=== PATIENT | female | born 1950 | race Caucasian/White ===

== ENCOUNTER 2019-02-01 15:04 | Inpatient (IN) | payer MEDICARE, BC ==
[~2019-02-01] VITALS: Ht 162.6 cm; Wt 45.0 kg
[2019-02-01] MEDS ORDERED: SOD CHLORIDE 0.9% 1,000 ML IV STA ×2 (15:46→17:28)
[2019-02-01] MEDS ORDERED: LACTATED RINGER'S 1,000 ML IV STA ×2 (15:46→17:28)
--- NOTE | 2019-02-01 16:11 | ERD ---
ER Documentation Chief Complaint Chief Complaint RAFAEL FROM HOME FOR SYNCOPAL EPISODE, WAS FOUND BY BY THEIR BED HPI 68-year-old woman brought in by EMS for syncopal episode at home, found her laying on the floor unconscious when he returned from work early this afternoon. Patient has a history of stage IV colon cancer (although denies metastasis) status post hemicolectomy and primary anastomosis and had her last round of chemotherapy about 1 month ago. states for the last couple of weeks patient has had decreased appetite and very little to eat or drink throughout the day. She has had no blood per rectum or melena, no fevers or chills, no complaints of chest pain or shortness of breath. ROS All systems reviewed and are negative except as per history of present illness. Medications Home Meds Reported Medications Gabapentin* (Gabapentin*) 400 Mg Capsule, 400 MG PO BID, #90 CAP 02/01/19 Folic Acid* (Folic Acid*) 1 Mg Tablet, 1 MG PO DAILY, TAB 02/01/19 Cholecalciferol (Vitamin D3) 5,000 Unit Tablet, 5000 UNIT PO DAILY, TAB 02/01/19 Ondansetron Hcl* (Zofran*) 4 Mg Tablet, 4 MG PO Q8H PRN for NAUSEA AND OR VOMITING, TAB 02/01/19 Hydrocortisone* (Cortef*) 20 Mg Tablet, 20 MG PO BID, #60 TAB 02/01/19 Lisinopril* (Lisinopril*) 5 Mg Tablet, 5 MG PO DAILY, #30 TAB 02/01/19 Allergies Allergies: Coded Allergies: No Known Allergy (Unverified , 02/01/19) PMhx/Soc Colon cancer, hypertension History of Surgery: Yes (COLON SURGERY) Anesthesia Reaction: No Hx Neurological Disorder: No Hx Respiratory Disorders: No Hx Cardiac Disorders: No Hx Psychiatric Problems: No Hx Miscellaneous Medical Probl: Yes (COLON CA) Hx Alcohol Use: No Hx Substance Use: No Hx Tobacco Use: No Smoking Status: Never smoker FmHx Family History: No diabetes Physical Exam Vitals Vital Signs Date Temp Pulse Resp B/P (MAP) Pulse Ox O2 O2 Flow FiO2 Time Delivery Rate 02/01/19 109 18 86/66 (73) 17:05 02/01/19 107 18 83/51 (62) 100 Room Air 16:50 02/01/19 55/14 (28) 16:18 6/17/19 108 18 74/53 (60) 100 15:36 02/01/19 96.7 56 18 87/62 (70) 100 15:18 Physical Exam GENERAL: Elderly, chronically debilitated appearing woman, emaciated, dehydrated, afebrile HEENT: Dry mucous membranes, pink conjunctiva, no cervical spine tenderness or step-off deformities, no goiter, no jaundice or icterus NEURO: Alert and oriented 3, moving all extremities, no focal deficits or facial asymmetry CARDIAC: Tachycardic and regular, no murmurs rubs or gallops LUNGS: Clear bilaterally no wheezing crackles or stridor ABDOMEN: Soft nontender, no guarding, no rigidity, no rebound, no psoas sign no obturator sign. SKIN: Warm and dry to touch, no abrasions, contusions, or hematomas, no lacerations, no ecchymosis, no target lesions, and without ulcers EXTREMITIES: No clubbing cyanosis or edema, calves are bilaterally symmetrical, no Homans sign, no popliteal cord sign. Distal pulses equal and bilateral PSYCH: Normal affect without agitation or irritability Result Diagram: 02/01/19 1617 02/01/19 1620 Results 24 hrs Laboratory Tests Test 02/01/19 16:17 02/01/19 16:20 White Blood Count 12.3 10^3/ul Red Blood Count 4.95 10^6/ul Hemoglobin 15.0 g/dl Hematocrit 43.5 % Mean Corpuscular Volume 87.9 fl Mean Corpuscular Hemoglobin 30.3 pg Mean Corpuscular Hemoglobin Concent 34.5 g/dl Red Cell Distribution Width 12.3 % Platelet Count 333 10^3/UL Mean Platelet Volume 9.4 fl Immature Granulocytes % 0.400 % Neutrophils % % Lymphocytes % % Monocytes % % Eosinophils % % Basophils % % Nucleated Red Blood Cells % 0.0 /100WBC Immature Granulocytes # 0.050 10^3/ul Neutrophils # 10^3/ul Lymphocytes # 10^3/ul Monocytes # 10^3/ul Eosinophils # 10^3/ul Basophils # 10^3/ul Nucleated Red Blood Cells # 10^3/ul Sodium Level 127 mmol/L Potassium Level 4.7 mmol/L Chloride Level 95 mmol/L Carbon Dioxide Level 17 mmol/L Anion Gap 15 Blood Urea Nitrogen 34 mg/dl Creatinine 2.06 mg/dl Est Glomerular Filtrat Rate mL/min 24 mL/min Glucose Level 119 mg/dl Calcium Level 10.7 mg/dl Total Bilirubin 0.9 mg/dl Direct Bilirubin 0.00 mg/dl Indirect Bilirubin 0.9 mg/dl Aspartate Amino Transf (AST/SGOT) 27 IU/L Alanine Aminotransferase (ALT/SGPT) 12 IU/L Alkaline Phosphatase 134 IU/L Troponin I < 0.012 ng/ml Total Protein 8.1 g/dl Albumin 4.1 g/dl Globulin 4.00 g/dl Albumin/Globulin Ratio 1.02 Lipase 48 U/L Current Medications Medications Dose Sig/Stefan Start Time Status Last (Trade) Ordered Route PRN Stop Time Admin Dose Reason Admin Sodium 1,000 ml @ Q1H STAT 02/01/19 DC 02/01/19 Chloride 1,000 mls/hr IV 15:46 16:22 02/01/19 16:45 Lactated 1,000 ml @ Q1H STAT 02/01/19 DC 02/01/19 Ringer's 1,000 mls/hr IV 15:46 16:22 02/01/19 16:45 Procedures/MDM IV line was established 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 Patient was afebrile EKG performed, read by me revealed a sinus tachycardia at 110 bpm, left axis deviation, narrow QRS complex, no concerning ST elevations or depressions noted I administered 2 L of IV crystalloid solution for dehydration X-ray Pelvis 1V Interpreted by me: Bones: No fracture Joints: No dislocation Foreign body: None chest X-ray 1V Interpreted by me: Soft Tissue: No acute abnormalities Bones: No acute abnormalities Mediastinum/Cardiac Silhouette/Lungs: Port-A-Cath in the right chest CBC is unremarkable, electrolytes revealed dehydration and acute kidney injury with a creatinine of 2.1, liver function tests unremarkable, troponin negative. Duran catheter was placed there is minimal urine output, UA is pending and I will follow-up, if positive patient will be treated with antibiotics. Patient will be admitted to telemetry setting for syncope. Departure Diagnosis: Primary Impression: Syncope Syncope type: unspecified Qualified Codes: R55 - Syncope and collapse Additional Impressions: Colon cancer Colon location: unspecified part of colon Qualified Codes: C18.9 - Malignant neoplasm of colon, unspecified Acute dehydration Acute kidney injury Failure to thrive Failure to thrive age range: in adult Qualified Codes: R62.7 - Adult failure to thrive Condition: RENA Cuba MD Feb 01, 2019 16:11
[2019-02-01] MEDS ORDERED: HYDR20TA PO (16:59)
[2019-02-01] MEDS ORDERED: LISI-313 PO (16:59)
[2019-02-01] MEDS ORDERED: CHOL500010 PO (17:00)
[2019-02-01] MEDS ORDERED: ONDA4TAB8 PO (17:00)
[2019-02-01] MEDS ORDERED: FOLI-49 PO (17:01)
[2019-02-01] MEDS ORDERED: GABA400C14 PO (17:01)
[2019-02-01] MEDS ORDERED: NACL 0.9% 3 ML SYG IV SCH (18:00)
[2019-02-01] MEDS ORDERED: morphine 2 MG INJ IV PRN (18:00)
[2019-02-01] MEDS ORDERED: HYDROCODONE/APAP (5/325) TAB PO PRN (18:00)
[2019-02-01] MEDS ORDERED: ONDANSETRON 4 MG INJ IV PRN (18:00)
[2019-02-01] MEDS ORDERED: FAMOTIDINE 20 MG INJ IV SCH (18:30)
[2019-02-01] MEDS ORDERED: PIPER-TAZO 2.25 GM (PMX) 50 ML IVPB SCH (18:30)
--- NOTE | 2019-02-01 18:38 | HP ---
Date/Time of Note Date/Time of Note DATE: 02/01/19 TIME: 18:37 Assessment/Plan VTE Prophylaxis Pharmacological prophylaxis: other Lines/Catheters IV Catheter Type (from Nrsg): Central Line Central line still needed: No Assessment/Plan Hospital Course HPI Patient is Pashto female the past medical history significant for hypertension and stage IV colon cancer status post colectomy last year who presents to [facility] for syncope. According to and patient at bedside has been returned from work to find patient passed out on a chair. Patient currently feels back to baseline however she does not remember the event except for that she wanted to use the bathroom and was walking to the bathroom and h owever felt very dizzy and subsequently passed out on the chair. Patient's splashed some water on her face and tried to wake her up and after multiple times he called emergency personnel. Currently patient feels at her baseline. According to patient and patient's , patient has not been eating or drinking very well as her chemotherapy gives her extreme nausea. Patient finished 10 rounds of chemotherapy, last chemotherapy was done approximately on January 14. Patient denies chest pain, shortness of breath, headache, dizziness, bowel or bladder dysfunction,. Patient does state that when I push hard in her stomach there is some mild pain. Objective Physical exam General: Patient is laying in bed and answers questions appropriately Mentation: Patient is alert and oriented 4, Head: Normocephalic atraumatic Eyes: EOMI, pupils reactive to light Neck: Supple, nontender, midline Respiratory: Clear to auscultation bilaterally Cardiovascular: regular rate, no obvious murmurs Gastrointestinal: Mild-tender to palpation, bowel sounds heard. Neurological: Moves all extremities spontaneously Skin: No new skin lesions Assessment and plan Syncope -Due to patient's history, this is highly likely secondary to volume depletion as patient has not been eating or drinking well for the past few weeks -Continue IV hydration -CT and MRI pending -Carotid ultrasound pending - echo pending Hypertension -Patient is alert and oriented x4, no change from baseline -Very likely secondary to patient's vomit depletion -Hold patient's blood pressure medications Severe sepsis -Possible intra-abdominal source as patient is complaining of new onset abdominal pain however this is very mild and only when I push and deep, -IV fluid -IV antibiotic, broad-spectrum given patient being on hydrocortisone chronically for unknown reason and patient receiving chemotherapy -Follow-up with cultures Intra-abdominal pain -Very mild, only with deep palpation -I suspect this is likely secondary to chronic issues however patient states that it is mildly worsening -CT of the abdomen pelvis pending -Continue broad-spectrum IV antibiotics as patient is immunocompromised -UA is still pending at this time, patient may also have a UTI, although does not complain of significant urinary issues Hyponatremia -This is very likely volume depletion, continue IV hydration Acute kidney injury versus chronic kidney disease -This is also very likely secondary to volume depletion, will monitor and reevaluate tomorrow a.m., if continues to be elevated will consult nephrology Chronic hydrocortisone use -Unknown reason, however will continue as patient is taking on a daily basis, twice daily, will need to inquire further from patient's family however patient's does not know exactly. Stage IV colon cancer -Patient is status post hemicolectomy with reanastomosis last year -Status post 10 rounds of chemotherapy, last chemotherapy done approximately 2 weeks ago -Persistent nausea is causing patient's decreased p.o. intake Decreased p.o. intake, failure to thrive -Likely secondary to above chemotherapy -Zofran as needed -We will try to encourage oral intake as well as high calorie snacks. Hypertension -Hold patient BP meds for now for hypotension. Disposition -Patient admitted, likely syncopal event secondary to volume depletion however will work-up given patient's immunocompromise status. Result Diagram: 02/01/19 1617 02/01/19 1620 Results 24hrs Laboratory Tests Test 02/01/19 16:17 02/01/19 16:20 White Blood Count 12.3 H Red Blood Count 4.95 Hemoglobin 15.0 Hematocrit 43.5 Mean Corpuscular Volume 87.9 Mean Corpuscular Hemoglobin 30.3 Mean Corpuscular Hemoglobin Concent 34.5 Red Cell Distribution Width 12.3 Platelet Count 333 Mean Platelet Volume 9.4 Immature Granulocytes % 0.400 Neutrophils % Segmented Neutrophils % (Manual) 45 Band Neutrophils % (Manual) 20 H Lymphocytes % Lymphocytes % (Manual) 19 Reactive Lymphocytes % (Manual) 4 H Monocytes % Monocytes % (Manual) 11 Eosinophils % Basophils % Metamyelocytes % (manual) 1 H Nucleated Red Blood Cells % 0.0 Immature Granulocytes # 0.050 H Neutrophils # Neutrophils # (Manual) 5.8 Band Neutrophils # 2.4 H Lymphocytes (Manual) 2.3 Lymphocytes # Reactive Lymphocytes # 0.4 H Monocytes # Monocytes # (Manual) 1.3 H Eosinophils # Basophils # Metamyelocytes # 0.1 H Nucleated Red Blood Cells # Platelet Estimate NORMAL Poikilocytosis 1+ Sodium Level 127 L Potassium Level 4.7 Chloride Level 95 L Carbon Dioxide Level 17 L Anion Gap 15 H Blood Urea Nitrogen 34 H Creatinine 2.06 H Est Glomerular Filtrat Rate mL/min 24 L Glucose Level 119 Calcium Level 10.7 H Total Bilirubin 0.9 Direct Bilirubin 0.00 Indirect Bilirubin 0.9 Aspartate Amino Transf (AST/SGOT) 27 Alanine Aminotransferase (ALT/SGPT) 12 L Alkaline Phosphatase 134 H Troponin I < 0.012 Total Protein 8.1 Albumin 4.1 Globulin 4.00 H Albumin/Globulin Ratio 1.02 Lipase 48 HPI/ROS Admit Date/Time Admit Date/Time PMH/Family/Social Past Medical History Medications Current Medications Sodium Chloride 1,000 ml @ 70 mls/hr [id number] IV ; Start 02/01/19 at 17:53 IV Flush (NS 3 ml) 3 ml PER PROTOCOL IV ; Start 02/01/19 at 18:00 Ondansetron HCl (Zofran Inj) 4 mg Q6H PRN IV NAUSEA/VOMITING; Start 02/01/19 at 18:00 Acetaminophen (Tylenol Tab) 650 mg Q6H PRN PO .PAIN 1-3 OR TEMP; Start 02/01/19 at 18:00 Acetaminophen/ Hydrocodone Bitart ([place] (5/325)) 1 tab Q6H PRN PO .PAIN 4-6; Start 02/01/19 at 18:00 Morphine Sulfate (morphine) 2 mg Q4H PRN IV .PAIN 7-10; Start 02/01/19 at 18:00 Famotidine (Pepcid Iv) 20 mg DAILY IV ; Start 02/01/19 at 18:30 Piperacillin Sod/ Tazobactam Sod 50 ml @ 100 mls/hr Q6 IVPB ; Start 02/01/19 at 18:30 Cholecalciferol (Vitamin D) 5,000 unit DAILY PO ; Start 02/02/19 at 09:00 Folic Acid (Folic Acid) 1 mg DAILY PO ; Start 02/02/19 at 09:00 Hydrocortisone (Cortef) 20 mg BID PO ; Start 02/01/19 at 21:00; Status UNV Coded Allergies: No Known Allergy (Unverified , 02/01/19) Social History Smoking Status: Never smoker Exam/Review of Systems Vital Signs Vitals Vital Signs Date Temp Pulse Resp B/P (MAP) Pulse Ox O2 O2 Flow FiO2 Time Delivery Rate 02/01/19 108 18 85/42 (56) 96 Room Air 18:06 02/01/19 97.0 17:54 RENA TELLO Feb 01, 2019 18:38
[2019-02-01] MEDS: SOD CHLORIDE 0.9% 1,000 ML IV SCH (19:54)
[2019-02-01 20:00] VITALS: BP 93/50; PULSE 109; RESP 20
[2019-02-01 20:06] VITALS: PULSE 110
[2019-02-01 21:00] VITALS: Ht 162.6 cm; Wt 45.0 kg
[2019-02-01] MEDS ORDERED: HYDROCORTISONE 20 MG TAB PO SCH (21:00)
[2019-02-01 22:00] VITALS: BP 103/57; PULSE 110; RESP 16
--- NOTE | 2019-02-01 23:47 | CONS ---
Assessment/Plan Assessment/Plan Hospital Course (Demo Recall) 1. Abdominal pain 2. Lactic acidosis 3. Leukocytosis with bandemia 4. CT findings of thickened proctoscopy: possible colitis versus perforation versus infectious -IV antibiotics -IV fluids -N.p.o. -Stat CT with rectal IV and oral contrast -Supportive measures -May require surgical exploration 5. Syncope of unknown etiology -Work-up per medical team 6. Sepsis probably secondary to above -As above 7. Kidney injury with renal insufficiency -Judicious fluid management -Minimize nephrotoxic agents if possible 8. Stage IV colon cancer status post resection and chemotherapy -Oncology follow-up Thank you very much for consulting me in this patient's care, Consultation Date/Type/Reason Admit Date/Time Date of Consultation: Feb 01, 2019 Type of Consult General surgical Reason for Consultation Abdominal pain CT with proctocolitis versus perforation versus ischemia Stage IV colon cancer status post resection and chemotherapy Requesting Provider: VIKY GUZMAN Date/Time of Note DATE: 02/01/19 TIME: 23:47 Hx of Present Illness Darien Bhat is a 68-year-old female who underwent open left colon resection due to stage IV colon cancer and is status post chemotherapy. Her surgery was May of last year at [facility]. came home today found her passed out with a syncopal episode. She came to it however but did not report nausea vomiting fevers chills chest pain or shortness of breath. No cough seizure visual or neurologic changes otherwise. No dysuria. Past few days she is been decreased oral intake and weaker. She also reports abdominal pain. Upon presentation she is found to be tachycardic and hypotensive initially. She continues to be tachycardic however hypotension is improved. She said loose bowel function. Blood work identifies mild leukocytosis with bandemia of 20. She has lactic acid of 5. She has renal insufficiency with electrolyte abnormalities. CT scan identifies thickened proctoscopy: Questionable perforation questionable ischemia. She is admitted to telemetry and surgical consult is obtained for further evaluation and treatment. 12 point review of system is negative unless otherwise addressed in chart Past Medical History Abdominal pain Lactic acidosis Leukocytosis with bandemia Syncope Hypertension history Hyponatremia Acute kidney injury versus chronic kidney disease Chronic hydrocortisone use Stage IV colon cancer Decreased p.o. intake, failure to thrive Home Meds Reported Medications Gabapentin* (Gabapentin*) 400 Mg Capsule, 400 MG PO BID, #90 CAP 02/01/19 Folic Acid* (Folic Acid*) 1 Mg Tablet, 1 MG PO DAILY, TAB 02/01/19 Cholecalciferol (Vitamin D3) 5,000 Unit Tablet, 5000 UNIT PO DAILY, TAB 02/01/19 Ondansetron Hcl* (Zofran*) 4 Mg Tablet, 4 MG PO Q8H PRN for NAUSEA AND OR VOMITING, TAB 02/01/19 Hydrocortisone* (Cortef*) 20 Mg Tablet, 20 MG PO BID, #60 TAB 02/01/19 Lisinopril* (Lisinopril*) 5 Mg Tablet, 5 MG PO DAILY, #30 TAB 02/01/19 Medications Current Medications Sodium Chloride 1,000 ml @ 70 mls/hr [id number] IV Last administered on 02/01/19at 19:54; Admin Dose 70 MLS/HR; Start 02/01/19 at 17:53 IV Flush (NS 3 ml) 3 ml PER PROTOCOL IV ; Start 02/01/19 at 18:00 Ondansetron HCl (Zofran Inj) 4 mg Q6H PRN IV NAUSEA/VOMITING; Start 02/01/19 at 18:00 Acetaminophen (Tylenol Tab) 650 mg Q6H PRN PO .PAIN 1-3 OR TEMP; Start 02/01/19 at 18:00 Acetaminophen/ Hydrocodone Bitart ([place] (5/325)) 1 tab Q6H PRN PO .PAIN 4-6; Start 02/01/19 at 18:00 Morphine Sulfate (morphine) 2 mg Q4H PRN IV .PAIN 7-10; Start 02/01/19 at 18:00 Piperacillin Sod/ Tazobactam Sod 50 ml @ 100 mls/hr Q6 IVPB Last administered on 02/01/19at 19:53; Admin Dose 100 MLS/HR; Start 02/01/19 at 18:30 Cholecalciferol (Vitamin D) 5,000 unit DAILY PO ; Start 02/02/19 at 09:00 Folic Acid (Folic Acid) 1 mg DAILY PO ; Start 02/02/19 at 09:00 Hydrocortisone (Cortef) 20 mg BID PO Last administered on 02/01/19at 21:33; Admin Dose 20 MG; Start 02/01/19 at 21:00 Pantoprazole (Protonix Tab) 40 mg DAILY@06 PO ; Start 02/02/19 at 06:00 Allergies: Coded Allergies: No Known Allergy (Unverified , 02/01/19) Past Surgical History Partial left colectomy May [address] [facility] Family History Significant Family History: no pertinent family hx Social History Alcohol Use: none Smoking Status: Never smoker Drug Use: none Exam/Review of Systems Exam Vitals Vital Signs Date Temp Pulse Resp B/P (MAP) Pulse Ox O2 O2 Flow FiO2 Time Delivery Rate 02/01/19 110 20:06 02/01/19 99.6 20 93/50 (64) 94 Room Air 20:00 Constitutional: oriented; No distress Psych: No nl mood/affect (Flat affect) Head: normocephalic, atraumatic Eyes: nl conjunctiva, EOMI, PERRL; No icteric ENMT: nl external ears & nose; No mucosa pink and moist Neck: non-tender; No jvd Respiratory: normal air movement; No congested cough, No labored breathing, No wheezing Cardiovascular: No regular rate and rhythm, No edema Gastrointestinal: rebound or guarding (Normal), tender Musculoskeletal: No nl gait and stance, No joint tenderness Extremities: normal pulses; No calf tenderness Neurological: No nl mental status (Flat affect) Skin: No rash or lesions, No diaphoresis Results Result Diagram: 02/01/19 1617 02/01/19 1620 Results 24hrs Laboratory Tests Test 02/01/19 16:17 02/01/19 16:20 02/01/19 18:09 02/01/19 18:52 White Blood Count 12.3 H Red Blood Count 4.95 Hemoglobin 15.0 Hematocrit 43.5 Mean Corpuscular 87.9 Volume Mean Corpuscular 30.3 Hemoglobin Mean Corpuscular 34.5 Hemoglobin Concent Red Cell 12.3 Distribution Width Platelet Count 333 Mean Platelet Volume 9.4 Immature 0.400 Granulocytes % Neutrophils % Segmented 45 Neutrophils % (Manual) Band Neutrophils % 20 H (Manual) Lymphocytes % Lymphocytes % 19 (Manual) Reactive Lymphocytes 4 H % (Manual) Monocytes % Monocytes % (Manual) 11 Eosinophils % Basophils % Metamyelocytes % 1 H (manual) Nucleated Red Blood 0.0 Cells % Immature 0.050 H Granulocytes # Neutrophils # Neutrophils # 5.8 (Manual) Band Neutrophils # 2.4 H Lymphocytes (Manual) 2.3 Lymphocytes # Reactive Lymphocytes 0.4 H # Monocytes # Monocytes # (Manual) 1.3 H Eosinophils # Basophils # Metamyelocytes # 0.1 H Nucleated Red Blood Cells # Platelet Estimate NORMAL Poikilocytosis 1+ Sodium Level 127 L Potassium Level 4.7 Chloride Level 95 L Carbon Dioxide Level 17 L Anion Gap 15 H Blood Urea Nitrogen 34 H Creatinine 2.06 H Est Glomerular 24 L Filtrat Rate mL/min Glucose Level 119 Calcium Level 10.7 H Total Bilirubin 0.9 Direct Bilirubin 0.00 Indirect Bilirubin 0.9 Aspartate Amino 27 Transf (AST/SGOT) Alanine 12 L Aminotransferase (AL T/SGPT) Alkaline Phosphatase 134 H Troponin I < 0.012 Total Protein 8.1 Albumin 4.1 Globulin 4.00 H Albumin/Globulin 1.02 Ratio Lipase 48 Urine Color HERMILA Urine Clarity CLOUDY A Urine pH 5.0 Urine Specific 1.018 [place] Urine Ketones TRACE A Urine Nitrite NEGATIVE Urine Bilirubin 1+ H Urine Urobilinogen 2+ H Urine Leukocyte NEGATIVE Esterase Urine Microscopic 54 H RBC Urine Microscopic 3 WBC Urine Squamous FEW Epithelial Cells Urine Bacteria FEW A Urine Hyaline Casts FEW A Urine Mucus FEW A Urine Hemoglobin 2+ H Urine Glucose NEGATIVE Urine Total Protein NEGATIVE Lactic Acid Level 5.0 *H Medications Medication Current Medications Sodium Chloride 1,000 ml @ 70 mls/hr [id number] IV Last administered on 02/01/19at 19:54; Admin Dose 70 MLS/HR; Start 02/01/19 at 17:53 IV Flush (NS 3 ml) 3 ml PER PROTOCOL IV ; Start 02/01/19 at 18:00 Ondansetron HCl (Zofran Inj) 4 mg Q6H PRN IV NAUSEA/VOMITING; Start 02/01/19 at 18:00 Acetaminophen (Tylenol Tab) 650 mg Q6H PRN PO .PAIN 1-3 OR TEMP; Start 02/01/19 at 18:00 Acetaminophen/ Hydrocodone Bitart ([place] (5/325)) 1 tab Q6H PRN PO .PAIN 4-6; Start 02/01/19 at 18:00 Morphine Sulfate (morphine) 2 mg Q4H PRN IV .PAIN 7-10; Start 02/01/19 at 18:00 Piperacillin Sod/ Tazobactam Sod 50 ml @ 100 mls/hr Q6 IVPB Last administered on 02/01/19at 19:53; Admin Dose 100 MLS/HR; Start 02/01/19 at 18:30 Cholecalciferol (Vitamin D) 5,000 unit DAILY PO ; Start 02/02/19 at 09:00 Folic Acid (Folic Acid) 1 mg DAILY PO ; Start 02/02/19 at 09:00 Hydrocortisone (Cortef) 20 mg BID PO Last administered on 02/01/19at 21:33; Admin Dose 20 MG; Start 02/01/19 at 21:00 Pantoprazole (Protonix Tab) 40 mg DAILY@06 PO ; Start 02/02/19 at 06:00 NADIRA LEIVA MD Feb 01, 2019 23:47
[2019-02-02] VITALS (60 sets, daily range): BP systolic 77–110; BP diastolic 36–78; PULSE 82–121; RESP 16–41
[2019-02-02] MEDS ORDERED: IOHEXOL 14.3 MG(I)/ML (ADULT) BTL PO ONE (00:30)
[2019-02-02] MEDS ORDERED: VANCOMYCIN IV PER PHARMACY XX SCH (00:30)
[2019-02-02] MEDS: ALBUMIN HUMAN 25% 100 ML IV SCH ×2 (00:37→02:08)
[2019-02-02] MEDS ORDERED: VANCOMYCIN 1 GM 250 ML IVPB SCH (02:00)
[2019-02-02] MEDS: MEROPENEM 1 GM/50ML(PMX) 50 ML IVPB SCH ×3 (02:48→20:27)
[2019-02-02] MEDS ORDERED: SOD CHLORIDE 0.9% 500 ML IV ONE ×2 (03:00→05:30)
[2019-02-02] MEDS ORDERED: IOHEXOL 300MG/ML 150 ML BTL ONE (05:37)
[2019-02-02] MEDS ORDERED: SOD CHLORIDE 0.9% 100 ML ONE (05:37)
[2019-02-02] MEDS ORDERED: PANTOPRAZOLE (EC) 40 MG TAB PO SCH (06:00)
[2019-02-02] MEDS: SOD CHLORIDE 0.9% 1,000 ML IV SCH ×3 (06:08→22:14)
[2019-02-02] MEDS ORDERED: SOD CHLORIDE 0.9% 1,000 ML IV ONE (08:00)
--- NOTE | 2019-02-02 08:31 | CONS ---
Assessment/Plan Assessment/Plan Assessment/Plan (Daily) Metastatic colon cancer New onset of Abdominal pain Sepsis syndrome abdominal HTN S/P Chemo S/P bowel resection Suggest dc morphine fentanyl protocol Consultation Date/Type/Reason Admit Date/Time Date/Time of Note DATE: 02/02/19 TIME: 08:25 Hx of Present Illness Patient is a 68-year-old female who looks older than her stated age who was brought into the emergency room [facility] with abdominal discomfort. Significant past medical history is that patient has metastatic colon cancer status post colectomy with 10 rounds of chemotherapy last done 2 weeks prior to this hospitalization. All information is taken from the patient's son and medical records and apparently patient began to have abdominal discomfort and had a non-mechanical fall paramedics were called she was brought to the emergency room. There was no loss of conscious dizziness diplopia disorientation incontinence tonic-clonic seizure activity patient woke and was complaining of abdominal discomfort. Other comorbid medical problems include history of hypertension fluid and electrolyte abnormalities chronic hydrocortis one use according medical records lately failure to thrive and loss of appetite, and finally hypertension. We do not have any old records we have an incomplete database. She has been seen by Dr. Tamayo patient diagnosed with sepsis syndrome leukocyto.sis bandemia. Surgical recommmendatioons are pending for today in pain cannot partticipate Past Medical History Medical History: cancer, high cholesterol, hypertension Home Meds Reported Medications Gabapentin* (Gabapentin*) 400 Mg Capsule, 400 MG PO BID, #90 CAP 02/01/19 Folic Acid* (Folic Acid*) 1 Mg Tablet, 1 MG PO DAILY, TAB 02/01/19 Cholecalciferol (Vitamin D3) 5,000 Unit Tablet, 5000 UNIT PO DAILY, TAB 02/01/19 Ondansetron Hcl* (Zofran*) 4 Mg Tablet, 4 MG PO Q8H PRN for NAUSEA AND OR VOMITING, TAB 02/01/19 Hydrocortisone* (Cortef*) 20 Mg Tablet, 20 MG PO BID, #60 TAB 02/01/19 Lisinopril* (Lisinopril*) 5 Mg Tablet, 5 MG PO DAILY, #30 TAB 02/01/19 Medications Current Medications Sodium Chloride 1,000 ml @ 70 mls/hr [id number] IV Last administered on 02/02/19at 06:08; Admin Dose 70 MLS/HR; Start 02/01/19 at 17:53 IV Flush (NS 3 ml) 3 ml PER PROTOCOL IV ; Start 02/01/19 at 18:00 Ondansetron HCl (Zofran Inj) 4 mg Q6H PRN IV NAUSEA/VOMITING Last administered on 02/02/19at 01:25; Admin Dose 4 MG; Start 02/01/19 at 18:00 Acetaminophen (Tylenol Tab) 650 mg Q6H PRN PO .PAIN 1-3 OR TEMP; Start 02/01/19 at 18:00 Acetaminophen/ Hydrocodone Bitart (Hughes (5/325)) 1 tab Q6H PRN PO .PAIN 4-6; Start 02/01/19 at 18:00 Morphine Sulfate (morphine) 2 mg Q4H PRN IV .PAIN 7-10; Start 02/01/19 at 18:00 Cholecalciferol (Vitamin D) 5,000 unit DAILY PO ; Start 02/02/19 at 09:00 Folic Acid (Folic Acid) 1 mg DAILY PO ; Start 02/02/19 at 09:00 Hydrocortisone (Cortef) 20 mg BID PO Last administered on 02/01/19at 21:33; Admin Dose 20 MG; Start 02/01/19 at 21:00 Pantoprazole (Protonix Tab) 40 mg DAILY@06 PO ; Start 02/02/19 at 06:00 Meropenem/Sodium Chloride 50 ml @ 100 mls/hr Q12 IVPB Last administered on 02/02/19at 02:48; Admin Dose 100 MLS/HR; Start 02/02/19 at 00:30 Vancomycin HCl (Vanco Iv Per Pharmacy) VANCOMYCIN PER PHARMACY PER PROTOCOL XX ; Start 02/02/19 at 00:30 Vancomycin/Sodium Chloride 250 ml @ 125 mls/hr Q48H IVPB ; Start 02/04/19 at 02:00 Sodium Chloride 1,000 ml @ 1,000 mls/hr Q1H ONCE IV ; Start 02/02/19 at 08:00; Stop 02/02/19 at 08:59 Allergies: Coded Allergies: No Known Allergy (Unverified , 02/01/19) Past Surgical History Past Surgical Hx: bowel resection Social History Alcohol Use: none Smoking Status: Never smoker Drug Use: none Exam/Review of Systems Exam Vitals Vital Signs Date Temp Pulse Resp B/P (MAP) Pulse Ox O2 O2 Flow FiO2 Time Delivery Rate 02/02/19 107 26 96/36 (56) 99 06:30 02/02/19 Nasal 4.0 05:45 Cannula 02/02/19 98.2 05:30 Intake and Output 02/01/19 02/01/19 02/02/19 1515:00 23:00 07:00 IntakeIntake Total 500 ml OutputOutput Total 175 ml BalanceBalance 325 ml Results Result Diagram: 02/02/19 0554 02/02/19 0554 Results 24hrs Laboratory Tests Test 02/01/19 16:17 02/01/19 16:20 02/01/19 18:09 02/01/19 18:52 White Blood Count 12.3 H Red Blood Count 4.95 Hemoglobin 15.0 Hematocrit 43.5 Mean Corpuscular 87.9 Volume Mean Corpuscular 30.3 Hemoglobin Mean Corpuscular 34.5 Hemoglobin Concent Red Cell 12.3 Distribution Width Platelet Count 333 Mean Platelet Volume 9.4 Immature 0.400 Granulocytes % Neutrophils % Segmented 45 Neutrophils % (Manual) Band Neutrophils % 20 H (Manual) Lymphocytes % Lymphocytes % 19 (Manual) Reactive Lymphocytes 4 H % (Manual) Monocytes % Monocytes % (Manual) 11 Eosinophils % Basophils % Metamyelocytes % 1 H (manual) Nucleated Red Blood 0.0 Cells % Immature 0.050 H Granulocytes # Neutrophils # Neutrophils # 5.8 (Manual) Band Neutrophils # 2.4 H Lymphocytes (Manual) 2.3 Lymphocytes # Reactive Lymphocytes 0.4 H # Monocytes # Monocytes # (Manual) 1.3 H Eosinophils # Basophils # Metamyelocytes # 0.1 H Nucleated Red Blood Cells # Platelet Estimate NORMAL Poikilocytosis 1+ Sodium Level 127 L Potassium Level 4.7 Chloride Level 95 L Carbon Dioxide Level 17 L Anion Gap 15 H Blood Urea Nitrogen 34 H Creatinine 2.06 H Est Glomerular 24 L Filtrat Rate mL/min Glucose Level 119 Calcium Level 10.7 H Total Bilirubin 0.9 Direct Bilirubin 0.00 Indirect Bilirubin 0.9 Aspartate Amino 27 Transf (AST/SGOT) Alanine 12 L Aminotransferase (AL T/SGPT) Alkaline Phosphatase 134 H Troponin I < 0.012 Total Protein 8.1 Albumin 4.1 Globulin 4.00 H Albumin/Globulin 1.02 Ratio Lipase 48 Urine Color HERMILA Urine Clarity CLOUDY A Urine pH 5.0 Urine Specific 1.018 [place] Urine Ketones TRACE A Urine Nitrite NEGATIVE Urine Bilirubin 1+ H Urine Urobilinogen 2+ H Urine Leukocyte NEGATIVE Esterase Urine Microscopic 54 H RBC Urine Microscopic 3 WBC Urine Squamous FEW Epithelial Cells Urine Bacteria FEW A Urine Hyaline Casts FEW A Urine Mucus FEW A Urine Hemoglobin 2+ H Urine Glucose NEGATIVE Urine Total Protein NEGATIVE Lactic Acid Level 5.0 *H Test 02/02/19 00:24 02/02/19 05:54 Prothrombin Time 16.4 H Prothrombin Time 1.3 Ratio INR International 1.31 Normalized Ratio Activated 41.2 H Partial Thromboplast Time Sodium Level 127 L 125 L Potassium Level 4.2 4.7 Chloride Level 101 98 Carbon Dioxide Level 18 L 17 L Anion Gap 8 10 Blood Urea Nitrogen 29 H 26 H Creatinine 1.45 H 1.29 H Est Glomerular 36 L 41 L Filtrat Rate mL/min Glucose Level 103 89 Lactic Acid Level 2.3 *H Calcium Level 9.1 9.3 Total Bilirubin 0.6 0.7 Direct Bilirubin 0.00 0.00 Indirect Bilirubin 0.6 0.7 Aspartate Amino 32 40 Transf (AST/SGOT) Alanine 17 20 Aminotransferase (AL T/SGPT) Alkaline Phosphatase 80 68 Total Protein 5.6 #L 6.2 Albumin 2.7 #L 3.5 Globulin 2.90 2.70 Albumin/Globulin 0.93 1.29 Ratio White Blood Count 6.9 # Red Blood Count 3.52 #L Hemoglobin 10.4 #L Hematocrit 31.1 #L Mean Corpuscular 88.4 Volume Mean Corpuscular 29.5 Hemoglobin Mean Corpuscular 33.4 Hemoglobin Concent Red Cell 12.7 Distribution Width Platelet Count 182 # Mean Platelet Volume 9.2 Immature 0.300 Granulocytes % Neutrophils % Segmented 34 L Neutrophils % (Manual) Band Neutrophils % 43 H (Manual) Lymphocytes % Lymphocytes % 16 (Manual) Monocytes % Monocytes % (Manual) 7 Eosinophils % Basophils % Nucleated Red Blood 0.0 Cells % Immature 0.020 Granulocytes # Neutrophils # Neutrophils # 2.5 (Manual) Band Neutrophils # 2.9 H Lymphocytes (Manual) 1.1 Lymphocytes # Monocytes # Monocytes # (Manual) 0.4 Eosinophils # Basophils # Nucleated Red Blood Cells # Platelet Estimate NORMAL Polychromasia 3+ Poikilocytosis 2+ Anisocytosis 1+ Microcytosis 1+ Hemoglobin A1c 5.2 Magnesium Level 1.7 Triglycerides Level 116 Cholesterol Level 109 LDL Cholesterol, 55 Calculated HDL Cholesterol 31 L Cholesterol/HDL 3.5 Ratio Thyroid Stimulating 1.950 Hormone (TSH) Medications Medication Current Medications Sodium Chloride 1,000 ml @ 70 mls/hr [id number] IV Last administered on 02/02/19at 06:08; Admin Dose 70 MLS/HR; Start 02/01/19 at 17:53 IV Flush (NS 3 ml) 3 ml PER PROTOCOL IV ; Start 02/01/19 at 18:00 Ondansetron HCl (Zofran Inj) 4 mg Q6H PRN IV NAUSEA/VOMITING Last administered on 02/02/19at 01:25; Admin Dose 4 MG; Start 02/01/19 at 18:00 Acetaminophen (Tylenol Tab) 650 mg Q6H PRN PO .PAIN 1-3 OR TEMP; Start 02/01/19 at 18:00 Acetaminophen/ Hydrocodone Bitart ([place]hes (5/325)) 1 tab Q6H PRN PO .PAIN 4-6; Start 02/01/19 at 18:00 Morphine Sulfate (morphine) 2 mg Q4H PRN IV .PAIN 7-10; Start 02/01/19 at 18:00 Cholecalciferol (Vitamin D) 5,000 unit DAILY PO ; Start 02/02/19 at 09:00 Folic Acid (Folic Acid) 1 mg DAILY PO ; Start 02/02/19 at 09:00 Hydrocortisone (Cortef) 20 mg BID PO Last administered on 02/01/19at 21:33; Admin Dose 20 MG; Start 02/01/19 at 21:00 Pantoprazole (Protonix Tab) 40 mg DAILY@06 PO ; Start 02/02/19 at 06:00 Meropenem/Sodium Chloride 50 ml @ 100 mls/hr Q12 IVPB Last administered on 02/02/19at 02:48; Admin Dose 100 MLS/HR; Start 02/02/19 at 00:30 Vancomycin HCl (Vanco Iv Per Pharmacy) VANCOMYCIN PER PHARMACY PER PROTOCOL XX ; Start 02/02/19 at 00:30 Vancomycin/Sodium Chloride 250 ml @ 125 mls/hr Q48H IVPB ; Start 02/04/19 at 02:00 Sodium Chloride 1,000 ml @ 1,000 mls/hr Q1H ONCE IV ; Start 02/02/19 at 08:00; Stop 02/02/19 at 08:59 ROXANNE BERRIOS Feb 02, 2019 08:31
[2019-02-02] MEDS: CHOLECALCIFEROL 1,000 UNIT TAB PO SCH (09:00)
[2019-02-02] MEDS ORDERED: FENTAnyl 50 MCG/ML VIAL IV PRN (09:00)
[2019-02-02] MEDS: FOLIC ACID 1 MG TAB PO SCH (09:00)
[2019-02-02] MEDS ORDERED: FENTAnyl (DRIP) 1000 mcg/100mL 100 ML IV SCH (09:00)
[2019-02-02] MEDS: FAMOTIDINE 20 MG INJ IV SCH (09:50)
[2019-02-02] MEDS: HYDROCORTISONE 100 MG INJ IV SCH ×2 (09:50→20:26)
[2019-02-02] MEDS ORDERED: ALBUMIN HUMAN 5% 250 ML INJ IV SCH (11:30)
[2019-02-02] MEDS ORDERED: MAGNESIUM SULFATE 3 GM in DEXTROSE 5% 100 ML IVPB ONE (12:00)
--- NOTE | 2019-02-02 15:00 | CONS ---
DATE OF ADMISSION: 02/01/2019 DATE OF CONSULTATION: 02/02/2019 TYPE OF CONSULTATION: Nephrology. REASON FOR CONSULTATION: Hypernatremia, acute kidney injury. PHYSICIAN REQUESTING CONSULT: Dr. Wesley Dewitt. HISTORY OF PRESENT ILLNESS: This is a 68-year-old female with a past medical history of metastatic c olon cancer, status post colectomy, currently on chemotherapy, who presents to [facility] after patient was found to be unconscious. The patient's has reported the patient was passed out on a chair, 911 was called. The patient was brought into the Emergency Room. Upon arriv al, the patient had laboratory data drawn, which showed elevated white count of 12.3. The patient alcantara d an MRI of the brain and CT scan which showed no acute evidence of infarct. The patient was admitte d, also had a CT scan of abdomen and pelvis which showed finding of questionable abscess. The patien t was placed on antibiotics, IV fluids and admitted to intensive care unit. In terms of patient's renal history, on admission patient noted to have a creatinine 2.0 mg/dL. The patient also had a sodium level 127. There have been no reports of hemoptysis, hematemesis or hemato chezia. Urinary output has been adequate. PAST MEDICAL HISTORY: As stated above, history of stage IV colon cancer, history of neuropathy. PAST SURGICAL HISTORY: History of colon resection. FAMILY HISTORY: No family history of kidney disease. SOCIAL HISTORY: Does not drink, smoke, do drugs. MEDICATIONS: The patient's medications have been reviewed. REVIEW OF SYSTEMS: Unable to do adequate review of systems as the patient is altered. Pertinent pos itives as obtained by reviewing medical records, speaking to hospital staff, stated in HPI, otherwise negative. PHYSICAL EXAMINATION: VITAL SIGNS: Blood pressure is 95/43, respirations 27, pulse 104, temperature 98.6. HEENT: Head is normocephalic. NECK: Supple. HEART: Regular rate. LUNGS: Show diminished breath sounds at the base. ABDOMEN: Soft, nontender to palpation without rebound or guarding. EXTREMITIES: Negative for clubbing, cyanosis, no edema. DERMATOLOGIC: No rashes. MUSCULOSKELETAL: No joint effusion. NEUROLOGIC: No focal deficit. MEDICATIONS: Have been reviewed. LABORATORY DATA: Has been reviewed. IMAGING STUDIES: Have been reviewed. ASSESSMENT AND PLAN: This is a 68-year-old female who presents with: 1. Nonoliguric acute kidney injury with unknown baseline creatinine. Etiology of acute kidney injur y is possibly multifactorial secondary to sepsis, hemodynamics. The possibility of obstructive uropa thy is a consideration. The patient's CT scan shows evidence of moderate left-sided hydronephrosis, hydroureter. The patient's urinalysis was reviewed, no active sediment. Plan at this point is to ch alexys a renal ultrasound to better evaluate hydronephrosis. Will check UA with microanalysis, check ur ine electrolytes. Continue IV fluids, antibiotic therapy. We will have a Duran catheter placed if t here is evidence of bladder distention. We will otherwise continue supportive care, renally dose all meds, avoid nephrotoxins. The patient's renal function has been improving with supportive care. 2. Hydronephrosis, left side. Etiology is unclear, may be secondary to extrinsic compression from m etastatic cancer, inflammatory changes. Would recommend a renal ultrasound. Would recommend urologi c evaluation. 3. Hyponatremia. Etiology is multifactorial, possibly secondary to acute kidney injury causing decr eased free water urinary excretion. Possible component of SIADH is also a consideration. Plan is to check urine sodium, urine osmolarity, serum osmolarity. Monitor serial sodium levels closely. 4. Anemia. Monitor hemoglobin and hematocrit levels. 5. Mineral bone disorder, monitor calcium and phosphorus levels. 6. Severe sepsis, etiology secondary to abdominal source. Continue IV fluids and antibiotic therapy . 7. Abdominal pain. Etiology is unclear, possibly due to abscess. The CT scan was reviewed. Follow up with general surgery. 8. Stage IV metastatic cancer. Continue to monitor. 9. Syncope, etiology is unclear, possibly hemodynamic sepsis. Continue to monitor. 10. History of hypertension. Thank you, Dr. Dewitt, for this interesting patient. Dictated By: IZABEL DENG DO NR/NTS Conf#: [id number] DID#: [id number] CC: WESLEY DEWITT MD;*EndCC*
--- NOTE | 2019-02-02 17:31 | PN ---
Date/Time of Note Date/Time of Note DATE: 02/02/19 TIME: 17:21 Assessment/Plan VTE Prophylaxis Risk score (from Ns)>0 risk: 4 SCD applied (from Ns): Yes Pharmacological prophylaxis: NA/contraindicated Pharm contraindication: renal impairment Lines/Catheters IV [facility] Peripheral IV Assessment/Plan Hospital Course Syncope secondary to dehydration from chemotherapy -Continue IV hydration -CT and MRI with no significant findings -Carotid ultrasound does show moderate stenosis in the left carotid artery but this is not the likely etiology - echo pending Hypotension secondary to dehydration -Patient is alert and oriented x4, no change from baseline -Hold patient's blood pressure medications Severe sepsis -Patient with leukocytosis, fevers, tachycardia and hypotension -Etiology secondary to UTI and/or colitis -Repeat CT abdomen with IV contrast does show colitis which is likely secondary to recent chemotherapy, no evidence of perforation -IV fluid -IV antibiotic, broad-spectrum given patient being on hydrocortisone chronically for unknown reason and patient receiving chemotherapy -Follow-up with cultures -ID consultation obtained Intra-abdominal pain likely secondary to colitis from recent chemo -CT abdomen on scan does show colitis as well as possible recurrence of colon cancer -Continue broad-spectrum IV antibiotics as patient is immunocompromised Hyponatremia -This is very likely volume depletion, continue IV hydration Acute kidney injury versus chronic kidney disease -Improving with fluids Chronic hydrocortisone use -Unknown reason, however will continue as patient is taking on a daily basis, twice daily, will need to inquire further from patient's family however patient's does not know exactly. Stage IV colon cancer -Patient is status post hemicolectomy with reanastomosis last year -Status post 10 rounds of chemotherapy, last chemotherapy done approximately 2 weeks ago -Persistent nausea is causing patient's decreased p.o. intake -CT abdomen does show possible recurrence of colon cancer in the descending colon, patient son is considering having patient be seen by her primary GI and surgeon -Hold off on GI consultation at this time Decreased p.o. intake, failure to thrive secondary to chemotherapy -Start clears -Zofran as needed History of hypertension -Hold patient BP meds for now secondary to hypotension Prophylaxis: SCDs Result Diagram: 02/02/19 0554 02/02/19 0554 Results 24hrs Laboratory Tests Test 02/01/19 18:09 02/01/19 18:52 02/02/19 00:24 02/02/19 05:54 Urine Color HERMILA Urine Clarity CLOUDY A Urine pH 5.0 Urine Specific 1.018 [place] Urine Ketones TRACE A Urine Nitrite NEGATIVE Urine Bilirubin 1+ H Urine Urobilinogen 2+ H Urine Leukocyte NEGATIVE Esterase Urine Microscopic 54 H RBC Urine Microscopic 3 WBC Urine Squamous FEW Epithelial Cells Urine Bacteria FEW A Urine Hyaline Casts FEW A Urine Mucus FEW A Urine Hemoglobin 2+ H Urine Glucose NEGATIVE Urine Total Protein NEGATIVE Lactic Acid Level 5.0 *H 2.3 *H Prothrombin Time 16.4 H Prothrombin Time 1.3 Ratio INR International 1.31 Normalized Ratio Activated 41.2 H Partial Thromboplast Time Sodium Level 127 L 125 L Potassium Level 4.2 4.7 Chloride Level 101 98 Carbon Dioxide Level 18 L 17 L Anion Gap 8 10 Blood Urea Nitrogen 29 H 26 H Creatinine 1.45 H 1.29 H Est Glomerular 36 L 41 L Filtrat Rate mL/min Glucose Level 103 89 Calcium Level 9.1 9.3 Total Bilirubin 0.6 0.7 Direct Bilirubin 0.00 0.00 Indirect Bilirubin 0.6 0.7 Aspartate Amino 32 40 Transf (AST/SGOT) Alanine 17 20 Aminotransferase (AL T/SGPT) Alkaline Phosphatase 80 68 Total Protein 5.6 #L 6.2 Albumin 2.7 #L 3.5 Globulin 2.90 2.70 Albumin/Globulin 0.93 1.29 Ratio White Blood Count 6.9 # Red Blood Count 3.52 #L Hemoglobin 10.4 #L Hematocrit 31.1 #L Mean Corpuscular 88.4 Volume Mean Corpuscular 29.5 Hemoglobin Mean Corpuscular 33.4 Hemoglobin Concent Red Cell 12.7 Distribution Width Platelet Count 182 # Mean Platelet Volume 9.2 Immature 0.300 Granulocytes % Neutrophils % Segmented 34 L Neutrophils % (Manual) Band Neutrophils % 43 H (Manual) Lymphocytes % Lymphocytes % 16 (Manual) Monocytes % Monocytes % (Manual) 7 Eosinophils % Basophils % Nucleated Red Blood 0.0 Cells % Immature 0.020 Granulocytes # Neutrophils # Neutrophils # 2.5 (Manual) Band Neutrophils # 2.9 H Lymphocytes (Manual) 1.1 Lymphocytes # Monocytes # Monocytes # (Manual) 0.4 Eosinophils # Basophils # Nucleated Red Blood Cells # Platelet Estimate NORMAL Polychromasia 3+ Poikilocytosis 2+ Anisocytosis 1+ Microcytosis 1+ Hemoglobin A1c 5.2 Magnesium Level 1.7 Triglycerides Level 116 Cholesterol Level 109 LDL Cholesterol, 55 Calculated HDL Cholesterol 31 L Cholesterol/HDL 3.5 Ratio Thyroid Stimulating 1.950 Hormone (TSH) Test 02/02/19 08:52 02/02/19 11:00 Lactic Acid Level 1.0 Urine Color YELLOW Urine Clarity CLEAR Urine pH 5.0 Urine Specific 1.033 H [place] Urine Ketones TRACE A Urine Nitrite NEGATIVE Urine Bilirubin NEGATIVE Urine Urobilinogen NEGATIVE Urine Leukocyte NEGATIVE Esterase Urine Microscopic 2 RBC Urine Microscopic 1 WBC Urine Hemoglobin 2+ H Urine Random 40.38 Creatinine Urine Random Sodium 96 H Urine Glucose NEGATIVE Urine Total Protein 11.0 Subjective 24 Hr Interval Summary Constitutional: no complaints Exam/Review of Systems Exam Vitals Vital Signs Date Temp Pulse Resp B/P (MAP) Pulse Ox O2 O2 Flow FiO2 Time Delivery Rate 02/02/19 99 12:00 02/02/19 99.6 22 99/59 (72) 97 Room Air 12:00 02/02/19 2.0 08:00 Intake and Output 02/01/19 02/01/19 02/02/19 1515:00 23:00 07:00 IntakeIntake Total 570 ml OutputOutput Total 275 ml BalanceBalance 295 ml Constitutional: alert Respiratory: clear to auscultation Cardiovascular: regular rate and rhythm Gastrointestinal: soft; No distended Musculoskeletal: nl extremities to inspection Results Results 24hrs Laboratory Tests Test 02/01/19 18:09 02/01/19 18:52 02/02/19 00:24 02/02/19 05:54 Urine Color HERMILA Urine Clarity CLOUDY A Urine pH 5.0 Urine Specific 1.018 [place] Urine Ketones TRACE A Urine Nitrite NEGATIVE Urine Bilirubin 1+ H Urine Urobilinogen 2+ H Urine Leukocyte NEGATIVE Esterase Urine Microscopic 54 H RBC Urine Microscopic 3 WBC Urine Squamous FEW Epithelial Cells Urine Bacteria FEW A Urine Hyaline Casts FEW A Urine Mucus FEW A Urine Hemoglobin 2+ H Urine Glucose NEGATIVE Urine Total Protein NEGATIVE Lactic Acid Level 5.0 *H 2.3 *H Prothrombin Time 16.4 H Prothrombin Time 1.3 Ratio INR International 1.31 Normalized Ratio Activated 41.2 H Partial Thromboplast Time Sodium Level 127 L 125 L Potassium Level 4.2 4.7 Chloride Level 101 98 Carbon Dioxide Level 18 L 17 L Anion Gap 8 10 Blood Urea Nitrogen 29 H 26 H Creatinine 1.45 H 1.29 H Est Glomerular 36 L 41 L Filtrat Rate mL/min Glucose Level 103 89 Calcium Level 9.1 9.3 Total Bilirubin 0.6 0.7 Direct Bilirubin 0.00 0.00 Indirect Bilirubin 0.6 0.7 Aspartate Amino 32 40 Transf (AST/SGOT) Alanine 17 20 Aminotransferase (AL T/SGPT) Alkaline Phosphatase 80 68 Total Protein 5.6 #L 6.2 Albumin 2.7 #L 3.5 Globulin 2.90 2.70 Albumin/Globulin 0.93 1.29 Ratio White Blood Count 6.9 # Red Blood Count 3.52 #L Hemoglobin 10.4 #L Hematocrit 31.1 #L Mean Corpuscular 88.4 Volume Mean Corpuscular 29.5 Hemoglobin Mean Corpuscular 33.4 Hemoglobin Concent Red Cell 12.7 Distribution Width Platelet Count 182 # Mean Platelet Volume 9.2 Immature 0.300 Granulocytes % Neutrophils % Segmented 34 L Neutrophils % (Manual) Band Neutrophils % 43 H (Manual) Lymphocytes % Lymphocytes % 16 (Manual) Monocytes % Monocytes % (Manual) 7 Eosinophils % Basophils % Nucleated Red Blood 0.0 Cells % Immature 0.020 Granulocytes # Neutrophils # Neutrophils # 2.5 (Manual) Band Neutrophils # 2.9 H Lymphocytes (Manual) 1.1 Lymphocytes # Monocytes # Monocytes # (Manual) 0.4 Eosinophils # Basophils # Nucleated Red Blood Cells # Platelet Estimate NORMAL Polychromasia 3+ Poikilocytosis 2+ Anisocytosis 1+ Microcytosis 1+ Hemoglobin A1c 5.2 Magnesium Level 1.7 Triglycerides Level 116 Cholesterol Level 109 LDL Cholesterol, 55 Calculated HDL Cholesterol 31 L Cholesterol/HDL 3.5 Ratio Thyroid Stimulating 1.950 Hormone (TSH) Test 02/02/19 08:52 02/02/19 11:00 Lactic Acid Level 1.0 Urine Color YELLOW Urine Clarity CLEAR Urine pH 5.0 Urine Specific 1.033 H [place] Urine Ketones TRACE A Urine Nitrite NEGATIVE Urine Bilirubin NEGATIVE Urine Urobilinogen NEGATIVE Urine Leukocyte NEGATIVE Esterase Urine Microscopic 2 RBC Urine Microscopic 1 WBC Urine Hemoglobin 2+ H Urine Random 40.38 Creatinine Urine Random Sodium 96 H Urine Glucose NEGATIVE Urine Total Protein 11.0 Medications Medication Current Medications Sodium Chloride 1,000 ml @ 100 mls/hr Q10H IV Last administered on 02/02/19at 06:08; Admin Dose 70 MLS/HR; Start 02/01/19 at 17:53 IV Flush (NS 3 ml) 3 ml PER PROTOCOL IV ; Start 02/01/19 at 18:00 Ondansetron HCl (Zofran Inj) 4 mg Q6H PRN IV NAUSEA/VOMITING Last administered on 02/02/19at 01:25; Admin Dose 4 MG; Start 02/01/19 at 18:00 Acetaminophen (Tylenol Tab) 650 mg Q6H PRN PO .PAIN 1-3 OR TEMP; Start 02/01/19 at 18:00 Cholecalciferol (Vitamin D) 5,000 unit DAILY PO ; Start 02/02/19 at 09:00 Folic Acid (Folic Acid) 1 mg DAILY PO ; Start 02/02/19 at 09:00 Meropenem/Sodium Chloride 50 ml @ 100 mls/hr Q12 IVPB Last administered on 02/02/19at 09:54; Admin Dose 100 MLS/HR; Start 02/02/19 at 00:30 Vancomycin HCl (Vanco Iv Per Pharmacy) VANCOMYCIN PER PHARMACY PER PROTOCOL XX ; Start 02/02/19 at 00:30 Vancomycin/Sodium Chloride 250 ml @ 125 mls/hr Q48H IVPB ; Start 02/04/19 at 02:00 Fentanyl (Sublimaze) 15 mcg Q3H PRN IV SEVERE PAIN LEVEL 7-10; Start 02/02/19 at 09:00 Hydrocortisone (Solu-Cortef) 100 mg Q12 IV Last administered on 02/02/19at 09:50; Admin Dose 100 MG; Start 02/02/19 at 09:00 Famotidine (Pepcid Iv) 20 mg DAILY IV Last administered on 02/02/19at 09:50; Admin Dose 20 MG; Start 02/02/19 at 09:00 ZINA MACKAY Feb 02, 2019 17:30
--- NOTE | 2019-02-02 17:35 | PN ---
Date/Time of Note Date/Time of Note DATE: 02/02/19 TIME: 17:29 Assessment/Plan Lines/Catheters IV Catheter Type (from [facility]): Peripheral IV Duran in Place (from [facility]): Yes Assessment/Plan Chief Complaint/Hosp Course 1. Abdominal pain: improved 2. Lactic acidosis 3. Leukocytosis with bandemia 4. CT findings of thickened proctoscopy: possible colitis versus perforation versus infectious: repeat ct noted without leak; possible recurrence of cancer -IV antibiotics -IV fluids -clears ok -Supportive measures -no emergent surgical exploration necessary at this time> consider tx to her primary surgeon 5. Syncope of unknown etiology -Work-up per medical team 6. Sepsis probably secondary to above -As above 7. Kidney injury with renal insufficiency -Judicious fluid management -Minimize nephrotoxic agents if possible 8. Stage IV colon cancer status post resection and chemotherapy -Oncology follow-up Thank you. Patient seen and examined in collaboration with Dr. Franky Tamayo. Subjective 24 Hr Interval Summary + bowel function. No leak noted on ct. No fevers, chills, sob, congested cough, cp, palpitations, alcantara, dizziness, n/v/d/dysuria. Feels better. Exam/Review of Systems Vital Signs Vitals Vital Signs Date Temp Pulse Resp B/P (MAP) Pulse Ox O2 O2 Flow FiO2 Time Delivery Rate 02/02/19 92 16:00 02/02/19 99.6 22 99/59 (72) 97 Room Air 12:00 02/02/19 2.0 08:00 Intake and Output 02/01/19 02/01/19 02/02/19 1515:00 23:00 07:00 IntakeIntake Total 570 ml OutputOutput Total 275 ml BalanceBalance 295 ml Exam Free Text/Dictation Constitutional: oriented; No distress Psych: No nl mood/affect (Flat affect) Head: normocephalic, atraumatic Eyes: nl conjunctiva, EOMI, PERRL; No icteric ENMT: nl external ears & nose; No mucosa pink and moist Neck: non-tender; No jvd Respiratory: normal air movement; No congested cough, No labored breathing, No wheezing Cardiovascular: No regular rate and rhythm, No edema Gastrointestinal: rebound or guarding (Normal), tender Musculoskeletal: No nl gait and stance, No joint tenderness Extremities: normal pulses; No calf tenderness Neurological: No nl mental status (Flat affect) Skin: No rash or lesions, No diaphoresis Results Result Diagram: 02/02/19 0554 02/02/19 0554 MOJGAN BURKS NP Feb 02, 2019 17:35
--- NOTE | 2019-02-02 20:29 | RADRPT ---
Echocardiogram Report Patient Name: ZEKE CUELLARPatient ID: [id number] : 1950 (68y 9m)Study Date: 02/02/2019 7:34:44 AM Gender: FAccession #: [id number] Tech: LuisBraden Braxton [facility] Location: 120 Ref.Physician: RENA TELLO Height(Cm): BSA: Weight(Kg): Quality: Technically Difficult StudyOrder Physician: RENA TELLO Account #: Procedures: Echocardiographic Report: Transthoracic echocardiogram with complete 2D, M-Mode, and doppler examination. Indications: Syncope. Measurements: 2D/M Mode Doppler Measurement Value Normal Range Measurement Value Normal Range LVIDd 2D 3.6 [ 3.8 - 5.2 ] cm AV Peak Rafael 1.1 [ 100.0 - 170.0 ] cm/sec LVIDs 2D 2.7 [ 2.2 - 3.5 ] cm AV Peak PG 5.0 [ 2.0 - 9.0 ] mmHg LVPWd 2D 0.9 [ 0.6 - 0.9 ] cm LVOT Peak Rafael 0.8 [ 70.0 - 110.0 ] cm/sec IVSd 2D 0.9 [ 0.6 - 0.9 ] cm LVOT Peak PG 2.0 [ 2.0 - 6.0 ] mmHg AoR Diam 2D 2.8 [ 2.3 - 3.1 ] cm EDV 2D 54.1 [ 46.0 - 106.0 ] ml ESV 2D 27.5 [ 14.0 - 42.0 ] ml EF 2D 49.2 [ 54.0 - 74.0 ] percent LA Dimen 2D 2.7 [ 2.7 - 3.8 ] cm Findings: Left Ventricle: Normal left ventricular systolic function. Normal left ventricular cavity size. Normal left ventricular wall thickness. Ejection fraction is visually estimated at 65 %. Tissue Doppler/Mitral Doppler indices are consistent with impaired relaxation (Stage I diastolic dysfunction). Right Ventricle: Normal right ventricular systolic function. Mild enlargement of right ventricle. Left Atrium: The left atrium is normal in size. Right Atrium: The right atrium is normal in size. Mitral Valve: Normal appearance of the mitral valve. No mitral valve regurgitation is seen. Aortic Valve: No significant aortic stenosis or insufficiency. Aortic cusps appear mildly calcified. Tricuspid Valve: Normal appearance of the tricuspid valve. There is trace tricuspid regurgitation. Pulmonic Valve: Pulmonic valve not well visualized. Pericardium: Normal pericardium with no significant pericardial effusion. Aorta: Normal aortic root. IVC: The IVC is not well visualized. Conclusions: Technically difficult study. Normal left ventricular systolic function. Grade 1 diastolic dysfunction. Mild right atrial enlargement with normal systolic function. Trace tricuspid regurgitation, unable to quantify pulmonary pressures. Electronically Signed By: Ana Sr 2019-02-02 20:28:51 PDT
[2019-02-03] VITALS (15 sets, daily range): BP systolic 80–99; BP diastolic 50–66; PULSE 78–98; RESP 14–32
[2019-02-03] MEDS: POTASSIUM CHLORIDE 100 ML IVPB SCH ×2 (07:37→10:28)
[2019-02-03] MEDS: HYDROCORTISONE 100 MG INJ IV SCH ×2 (08:42→20:09)
[2019-02-03] MEDS: MEROPENEM 1 GM/50ML(PMX) 50 ML IVPB SCH (08:42)
[2019-02-03] MEDS: FAMOTIDINE 20 MG INJ IV SCH (08:42)
[2019-02-03] MEDS: CHOLECALCIFEROL 1,000 UNIT TAB PO SCH (08:43)
[2019-02-03] MEDS: FOLIC ACID 1 MG TAB PO SCH (08:43)
--- NOTE | 2019-02-03 09:30 | CONS ---
DATE OF ADMISSION: 02/01/2019 DATE OF CONSULTATION: 02/02/2019 INFECTIOUS DISEASE CONSULTATION REASON FOR CONSULTATION: Antibiotic management. HISTORY OF PRESENT ILLNESS: The patient is a 68-year-old [place] female who comes in with a syncopal episode from home. The found her lying on the floor unconscious. The patient has a history of stage IV colon cancer, though the denies metastasis. She is status post hemic olectomy with primary anastomosis and her last round of chemotherapy was about 1 month ago. The husb and states that for the last few weeks, she has had decreased appetite, very little to eat or drink. PAST MEDICAL HISTORY: Positive for colon cancer and hypertension. FAMILY HISTORY: Noncontributory. SOCIAL HISTORY: She does not smoke, drink or abuse drugs. ALLERGIES: NONE TO PENICILLIN, SULFA OR FOODS. MEDICATIONS: Per chart. REVIEW OF SYSTEMS: Noncontributory. PHYSICAL EXAMINATION: GENERAL: The patient is a chronically ill-appearing, debilitated female who is emaciated, dehydrated , afebrile. SKIN: Without generalized rash. HEENT: Within normal limits. NECK: Supple. LYMPH NODES: None palpable. CHEST: Decreased breath sounds at the bases. HEART: Without murmur or gallop. Tachycardic. ABDOMEN: Soft, nontender, without organosplenomegaly or masses. EXTREMITIES: Without cyanosis, clubbing, or edema. RECTAL AND GENITAL: Deferred. NEUROLOGIC: No focal neurological abnormality. ANCILLARY LABORATORY DATA: White count 12.3, H and H of 15 and 43.5, platelet count 373,000. BUN an d creatinine 34/2.06. The patient has a Port-A-Cath in her right chest. Chest x-ray is unremarkable . CBC is unremarkable. Urine showed mixed gram-negative organisms. White count today is 6.8, down from 12.3. IMPRESSION AND PLAN: The patient was started on vancomycin and meropenem. Etiology of her problem a t this point is unclear. We will continue on broad spectrum antibiotic therapy and she has blood cul tures and stool for C. diff still pending. MRSA and urine cultures pending. I want to thank the hospitalist and Dr. Leiva for asking us to see this lauren lady in consultation . Dictated By: JASMIN LEAL MD, JD/JEMAL Conf#: [id number] [facility]#: [id number] CC: RENA TELLO MD; NADIRA LEIVA MD;*[facility]*
--- NOTE | 2019-02-03 09:56 | PN ---
Date/Time of Note Date/Time of Note DATE: 02/03/19 TIME: 09:53 Assessment/Plan Lines/Catheters IV Catheter Type (from [facility]): Peripheral IV Duran in Place (from [facility]): Yes Assessment/Plan Chief Complaint/Hosp Course 1. Abdominal pain: improved 2. Lactic acidosis 3. Leukocytosis with bandemia 4. CT findings of thickened proctoscopy: possible colitis versus perforation versus infectious: repeat ct noted without leak; possible recurrence of cancer, colitis -IV antibiotics per ID -IV fluids -Advance diet as tolerated -Supportive measures -no emergent surgical exploration necessary at this time> consider tx to her primary surgeon -We will need follow-up with oncology/primary surgeon/GI team 5. Syncope of unknown etiology -Work-up per medical team 6. Sepsis probably secondary to above -As above 7. Kidney injury with renal insufficiency -Judicious fluid management -Minimize nephrotoxic agents if possible 8. Stage IV colon cancer status post resection and chemotherapy -Oncology follow-up Thank you. Patient seen and examined in collaboration with Dr. Franky Tamayo. Subjective 24 Hr Interval Summary Feels much better. No abdominal pain or discomfort. Tolerating liquids well. + Bowel function. No fevers, chills, sob, congested cough, cp, palpitations, alcantara, dizziness, nausea, vomiting, diarrhea, dysuria. Exam/Review of Systems Vital Signs Vitals Vital Signs Date Temp Pulse Resp B/P (MAP) Pulse Ox O2 O2 Flow FiO2 Time Delivery Rate 02/03/19 78 08:00 02/03/19 20 97/63 (74) 97 Nasal 2.0 06:00 Cannula 02/03/19 98.3 04:00 Intake and Output 02/02/19 02/02/19 02/03/19 1515:00 23:00 07:00 IntakeIntake Total 793.333 ml 850 ml 800 ml OutputOutput Total 865 ml 925 ml 515 ml BalanceBalance -71.667 ml -75 ml 285 ml Exam Free Text/Dictation Constitutional: oriented; No distress Psych: nl mood/affect Head: normocephalic, atraumatic Eyes: nl conjunctiva, EOMI, PERRL; No icteric ENMT: nl external ears & nose; No mucosa pink and moist Neck: non-tender; No jvd Respiratory: normal air movement; No congested cough, No labored breathing, No wheezing Cardiovascular: No regular rate and rhythm, No edema Gastrointestinal: rebound or guarding (Normal), nontender Musculoskeletal: No nl gait and stance, No joint tenderness Extremities: normal pulses; No calf tenderness Neurological: nl mental status Skin: No rash or lesions, No diaphoresis Results Result Diagram: 02/03/1939902/03/190 MOJGAN BURKS NP Feb 03, 2019 09:56
--- NOTE | 2019-02-03 12:17 | PN ---
DATE: 02/03/2019 SUBJECTIVE: The patient is stable. The patient is hypotensive, but alert and oriented, no other acu te events noted. OBJECTIVE: VITAL SIGNS: Blood pressure 97/63, respirations 20, pulse 78, temperature is 98.6. HEENT: Head is normocephalic. NECK: Supple. HEART: Regular rate. LUNGS: Show diminished breath sounds at the base. ABDOMEN: Soft, nontender to palpation without rebound or guarding. EXTREMITIES: Negative for clubbing, cyanosis, no edema. DERMATOLOGIC: No rashes. MUSCULOSKELETAL: No joint effusion. NEUROLOGIC: No change in exam. MEDICATIONS: The patient's medications have been reviewed. LABORATORY DATA: Reviewed. IMAGING STUDIES: Reviewed. ASSESSMENT AND PLAN: 1. Nonoliguric acute kidney injury with unknown baseline creatinine. Etiology of acute kidney injur y is secondary to sepsis, hemodynamics, possible component of obstructive uropathy. The patient's CT scan did show evidence of hydroureteronephrosis. The patient's renal function has improved with IV hydration. At this point, we would continue current treatment plans, supportive care, renally dose a ll medications. We will deescalate IV fluids. 2. Left sided hydronephrosis. Etiology may be secondary to extrinsic compression from metastatic ca ncer. We will continue to monitor. Renal ultrasound has been reviewed. May consider urologic evalu ation. 3. Hypernatremia. Etiology is multifactorial secondary to acute kidney injury causing decreased hanh e water urinary excretion, Volume depletion. The patient's sodium levels improved appropriately at 1 0 mEq in a 24-hour period. At this point, we will continue to monitor serum sodium levels closely. 4. Hypokalemia. Replete with potassium chloride. 5. Anemia. Monitor hemoglobin and hematocrit levels. 6. Mineral bone disorder. Monitor calcium and phosphorus levels. 7. Severe sepsis. Etiology may be secondary to intraabdominal source. Continue current antibiotic regimen. Continue IV fluids. 8. Abdominal pain, possibly secondary to abscess. CT scan was reviewed. Continue to monitor. Foll ow up with general surgery. 9. Stage IV metastatic cancer. Continue to monitor. 10. Syncope, etiology is unclear. Continue to monitor. 11. History of hypertension. Dictated By: IZABEL AMBRIZ/JEMAL Conf#: [id number] DID#: [id number] CC: NADIRA LEIVA MD; ZINA MACKAY MD; RENA TELLO MD;*[facility]*
--- NOTE | 2019-02-03 14:28 | CONS ---
Assessment/Plan Assessment/Plan Hospital Course (Demo Recall) Is alert awake feels better being fed by family member no fevers overnight WBC 5.8 platelets 178 BUN 22 creatinine 0.91 Microbiology: Blood cultures remain negative stool positive came back positive Antimicrobials: Patient is on IV vancomycin and meropenem Chest x-ray on admission revealed mild left basilar atelectasis the lungs are otherwise clear Physical examination: This is a fragile chronically ill-appearing elderly woman who is awake in no distress. Head atraumatic normocephalic neck is supple chest rise symmetrical breath sounds diminished bases heart S1-S2 abdomen soft bowel sounds present extremities without cyanosis Assessment: 1. C. difficile colitis 2. Status post respiratory failure 3. Metastatic colon cancer status post hemicolectomy 4. History of hypertension Plan: Patient is stable we will change antibiotics to oral vancomycin and Flagyl Consultation Date/Type/Reason Admit Date/Time Feb 01, 2019 at 17:44 Initial Consult Date 02/01/19 Type of Consult id Requesting Provider: VIKY GUZMAN Date/Time of Note DATE: 02/03/19 TIME: 14:28 Exam/Review of Systems Exam Vitals Vital Signs Date Temp Pulse Resp B/P (MAP) Pulse Ox O2 O2 Flow FiO2 Time Delivery Rate 02/03/19 86 12:03 02/03/19 21 95/61 (72) 97 10:00 02/03/19 98.5 08:00 02/03/19 Nasal 2.0 06:00 Cannula Intake and Output 02/02/19 02/02/19 02/03/19 1515:00 23:00 07:00 IntakeIntake Total 793.333 ml 850 ml 800 ml OutputOutput Total 865 ml 925 ml 515 ml BalanceBalance -71.667 ml -75 ml 285 ml Results Result Diagram: 02/03/19 0400 02/03/19 0400 Results 24hrs Laboratory Tests Test 02/03/19 04:00 White Blood Count 5.8 Red Blood Count 3.14 L Hemoglobin 9.4 L Hematocrit 27.7 L Mean Corpuscular Volume 88.2 Mean Corpuscular Hemoglobin 29.9 Mean Corpuscular Hemoglobin Concent 33.9 Red Cell Distribution Width 12.8 Platelet Count 178 Mean Platelet Volume 9.4 Immature Granulocytes % 0.200 Neutrophils % Segmented Neutrophils % (Manual) 71 Band Neutrophils % (Manual) 16 H Lymphocytes % Lymphocytes % (Manual) 8 L Monocytes % Monocytes % (Manual) 5 Eosinophils % Basophils % Nucleated Red Blood Cells % 0.0 Immature Granulocytes # 0.010 Neutrophils # Neutrophils # (Manual) 4.2 Band Neutrophils # 0.9 H Lymphocytes (Manual) 0.4 L Lymphocytes # Monocytes # Monocytes # (Manual) 0.2 L Eosinophils # Basophils # Nucleated Red Blood Cells # Platelet Estimate NORMAL Giant Platelets 1 H Polychromasia 3+ Poikilocytosis 3+ Anisocytosis 2+ Macrocytosis 1+ Sodium Level 137 Potassium Level 3.3 L Chloride Level 109 # Carbon Dioxide Level 17 L Anion Gap 11 Blood Urea Nitrogen 22 H Creatinine 0.91 Est Glomerular Filtrat Rate mL/min > 60 Glucose Level 110 Calcium Level 9.2 Phosphorus Level 4.2 Magnesium Level 2.7 #H Medications Medication Current Medications Sodium Chloride 1,000 ml @ 50 mls/hr Q20H IV Last administered on 02/02/19at 22:14; Admin Dose 100 MLS/HR; Start 02/01/19 at 17:53 IV Flush (NS 3 ml) 3 ml PER PROTOCOL IV ; Start 02/01/19 at 18:00 Ondansetron HCl (Zofran Inj) 4 mg Q6H PRN IV NAUSEA/VOMITING Last administered on 02/02/19at 01:25; Admin Dose 4 MG; Start 02/01/19 at 18:00 Acetaminophen (Tylenol Tab) 650 mg Q6H PRN PO .PAIN 1-3 OR TEMP; Start 02/01/19 at 18:00 Cholecalciferol (Vitamin D) 5,000 unit DAILY PO ; Start 02/02/19 at 09:00 Folic Acid (Folic Acid) 1 mg DAILY PO ; Start 02/02/19 at 09:00 Meropenem/Sodium Chloride 50 ml @ 100 mls/hr Q12 IVPB Last administered on 02/03/19at 08:42; Admin Dose 100 MLS/HR; Start 02/02/19 at 00:30 Vancomycin HCl (Vanco Iv Per Pharmacy) VANCOMYCIN PER PHARMACY PER PROTOCOL XX ; Start 02/02/19 at 00:30 Fentanyl (Sublimaze) 15 mcg Q3H PRN IV SEVERE PAIN LEVEL 7-10; Start 02/02/19 at 09:00 Hydrocortisone (Solu-Cortef) 100 mg Q12 IV Last administered on 02/03/19at 08:42; Admin Dose 100 MG; Start 02/02/19 at 09:00 Famotidine (Pepcid Iv) 20 mg DAILY IV Last administered on 02/03/19 08:42; Admin Dose 20 MG; Start 02/02/19 at 09:00 Vancomycin/Sodium Chloride 250 ml @ 125 mls/hr Q36H IVPB ; Start 02/03/19 at 15:00 OBED MASTERS NP Feb 03, 2019 14:28
[2019-02-03] MEDS ORDERED: VANCOMYCIN 750 MG (PMX) 250 ML IVPB SCH (15:00)
--- NOTE | 2019-02-03 15:06 | PN ---
Date/Time of Note Date/Time of Note DATE: 02/03/19 TIME: 15:02 Assessment/Plan VTE Prophylaxis Risk score (from [facility])>0 risk: 6 SCD applied (from [facility]): Yes Pharmacological prophylaxis: NA/contraindicated Pharm contraindication: other Lines/Catheters IV C[facility]ter Type (from [facility]): Peripheral IV Assessment/Plan Hospital Course 1. Syncope secondary to dehydration from chemotherapy -Continue IV hydration -CT and MRI with no significant findings -Carotid ultrasound does show moderate stenosis in the left carotid artery but this is not the likely etiology - echo pending 2. Hypotension secondary to dehydration -Patient is alert and oriented x4, no change from baseline -Hold patient's blood pressure medications -Continue IV fluid 3. Severe sepsis secondary to C. difficile -C. difficile is positive -Patient started on vancomycin p.o. by ID 4. Intra-abdominal pain likely secondary to C. difficile colitis -CT abdomen on scan does show colitis as well as possible recurrence of colon cancer -C. difficile is positive -Continue treatment 5. Hyponatremia -Resolved with fluids 6. Acute kidney injury versus chronic kidney disease -Improving with fluids 7. Chronic hydrocortisone use -Unknown reason, however will continue as patient is taking on a daily basis, twice daily, will need to inquire further from patient's family however patient's does not know exactly. 8. Stage IV colon cancer -Patient is status post hemicolectomy with reanastomosis last year -Status post 10 rounds of chemotherapy, last chemotherapy done approximately 2 weeks ago -Persistent nausea is causing patient's decreased p.o. intake -CT abdomen does show possible recurrence of colon cancer in the descending colon, patient son has requested GI evaluation -GI consultation obtained 9. Decreased p.o. intake, failure to thrive secondary to chemotherapy -Continue clears -Zofran as needed 10. History of hypertension -Hold patient BP meds for now secondary to hypotension Prophylaxis: SCDs Result Diagram: 02/03/19 0400 02/03/19 0400 Results 24hrs Laboratory Tests Test 02/03/19 04:00 White Blood Count 5.8 Red Blood Count 3.14 L Hemoglobin 9.4 L Hematocrit 27.7 L Mean Corpuscular Volume 88.2 Mean Corpuscular Hemoglobin 29.9 Mean Corpuscular Hemoglobin Concent 33.9 Red Cell Distribution Width 12.8 Platelet Count 178 Mean Platelet Volume 9.4 Immature Granulocytes % 0.200 Neutrophils % Segmented Neutrophils % (Manual) 71 Band Neutrophils % (Manual) 16 H Lymphocytes % Lymphocytes % (Manual) 8 L Monocytes % Monocytes % (Manual) 5 Eosinophils % Basophils % Nucleated Red Blood Cells % 0.0 Immature Granulocytes # 0.010 Neutrophils # Neutrophils # (Manual) 4.2 Band Neutrophils # 0.9 H Lymphocytes (Manual) 0.4 L Lymphocytes # Monocytes # Monocytes # (Manual) 0.2 L Eosinophils # Basophils # Nucleated Red Blood Cells # Platelet Estimate NORMAL Giant Platelets 1 H Polychromasia 3+ Poikilocytosis 3+ Anisocytosis 2+ Macrocytosis 1+ Sodium Level 137 Potassium Level 3.3 L Chloride Level 109 # Carbon Dioxide Level 17 L Anion Gap 11 Blood Urea Nitrogen 22 H Creatinine 0.91 Est Glomerular Filtrat Rate mL/min > 60 Glucose Level 110 Calcium Level 9.2 Phosphorus Level 4.2 Magnesium Level 2.7 #H Subjective 24 Hr Interval Summary Constitutional: no complaints Exam/Review of Systems Exam Vitals Vital Signs Date Temp Pulse Resp B/P (MAP) Pulse Ox O2 O2 Flow FiO2 Time Delivery Rate 02/03/19 86 12:03 02/03/19 21 95/61 (72) 97 10:00 02/03/19 98.5 08:00 02/03/19 Nasal 2.0 06:00 Cannula Intake and Output 02/02/19 02/02/19 02/03/19 1515:00 23:00 07:00 IntakeIntake Total 793.333 ml 850 ml 800 ml OutputOutput Total 865 ml 925 ml 515 ml BalanceBalance -71.667 ml -75 ml 285 ml Constitutional: alert, oriented Respiratory: clear to auscultation Cardiovascular: regular rate and rhythm Gastrointestinal: soft; No distended Musculoskeletal: nl extremities to inspection Results Results 24hrs Laboratory Tests Test 02/03/19 04:00 White Blood Count 5.8 Red Blood Count 3.14 L Hemoglobin 9.4 L Hematocrit 27.7 L Mean Corpuscular Volume 88.2 Mean Corpuscular Hemoglobin 29.9 Mean Corpuscular Hemoglobin Concent 33.9 Red Cell Distribution Width 12.8 Platelet Count 178 Mean Platelet Volume 9.4 Immature Granulocytes % 0.200 Neutrophils % Segmented Neutrophils % (Manual) 71 Band Neutrophils % (Manual) 16 H Lymphocytes % Lymphocytes % (Manual) 8 L Monocytes % Monocytes % (Manual) 5 Eosinophils % Basophils % Nucleated Red Blood Cells % 0.0 Immature Granulocytes # 0.010 Neutrophils # Neutrophils # (Manual) 4.2 Band Neutrophils # 0.9 H Lymphocytes (Manual) 0.4 L Lymphocytes # Monocytes # Monocytes # (Manual) 0.2 L Eosinophils # Basophils # Nucleated Red Blood Cells # Platelet Estimate NORMAL Giant Platelets 1 H Polychromasia 3+ Poikilocytosis 3+ Anisocytosis 2+ Macrocytosis 1+ Sodium Level 137 Potassium Level 3.3 L Chloride Level 109 # Carbon Dioxide Level 17 L Anion Gap 11 Blood Urea Nitrogen 22 H Creatinine 0.91 Est Glomerular Filtrat Rate mL/min > 60 Glucose Level 110 Calcium Level 9.2 Phosphorus Level 4.2 Magnesium Level 2.7 #H Medications Medication Current Medications Sodium Chloride 1,000 ml @ 50 mls/hr Q20H IV Last administered on 02/02/19at 22:14; Admin Dose 100 MLS/HR; Start 02/01/19 at 17:53 IV Flush (NS 3 ml) 3 ml PER PROTOCOL IV ; Start 02/01/19 at 18:00 Ondansetron HCl (Zofran Inj) 4 mg Q6H PRN IV NAUSEA/VOMITING Last administered on 02/02/19at 01:25; Admin Dose 4 MG; Start 02/01/19 at 18:00 Acetaminophen (Tylenol Tab) 650 mg Q6H PRN PO .PAIN 1-3 OR TEMP; Start 02/01/19 at 18:00 Cholecalciferol (Vitamin D) 5,000 unit DAILY PO ; Start 02/02/19 at 09:00 Folic Acid (Folic Acid) 1 mg DAILY PO ; Start 02/02/19 at 09:00 Fentanyl (Sublimaze) 15 mcg Q3H PRN IV SEVERE PAIN LEVEL 7-10; Start 02/02/19 at 09:00 Hydrocortisone (Solu-Cortef) 100 mg Q12 IV Last administered on 02/03/19at 08:42; Admin Dose 100 MG; Start 02/02/19 at 09:00 Famotidine (Pepcid Iv) 20 mg DAILY IV Last administered on 02/03/19at 08:42; Admin Dose 20 MG; Start 02/02/19 at 09:00 Vancomycin HCl (Vancomycin Oral Syringe) 125 mg Q6 PO ; Start 02/03/19 at 16:00 Metronidazole 100 ml @ 100 mls/hr Q8 IVPB ; Start 02/03/19 at 15:00 ZINA MACKAY Feb 03, 2019 15:06
[2019-02-03] MEDS: metroNIDAZOLE 500 MG/NS (PMX) 100 ML IVPB SCH ×2 (15:08→22:04)
[2019-02-03] MEDS ORDERED: BISACODYL (EC) 5 MG TAB PO ONE ×2 (16:00→22:00)
[2019-02-03] MEDS ORDERED: PEG/ELECTROLYTES 4L BTL PO ONE ×2 (16:00→20:00)
[2019-02-03] MEDS: VANCOMYCIN HCL 250 MG/5ML POSYG PO SCH ×2 (16:18→20:09)
[2019-02-03] MEDS: SOD CHLORIDE 0.9% 1,000 ML IV SCH (22:45)
[2019-02-04] VITALS (20 sets, daily range): BP systolic 107–142; BP diastolic 61–79; PULSE 72–93; RESP 18–28
[2019-02-04] MEDS: VANCOMYCIN HCL 250 MG/5ML POSYG PO SCH ×5 (00:11→22:37)
[2019-02-04] MEDS ORDERED: VANCOMYCIN 750 MG (PMX) 250 ML IVPB SCH (02:00)
[2019-02-04] MEDS: metroNIDAZOLE 500 MG/NS (PMX) 100 ML IVPB SCH ×3 (05:00→19:56)
[2019-02-04] MEDS: FAMOTIDINE 20 MG INJ IV SCH (08:28)
[2019-02-04] MEDS: HYDROCORTISONE 100 MG INJ IV SCH ×2 (08:28→19:56)
[2019-02-04] MEDS: CHOLECALCIFEROL 1,000 UNIT TAB PO SCH (08:29)
[2019-02-04] MEDS: FOLIC ACID 1 MG TAB PO SCH (08:29)
--- NOTE | 2019-02-04 08:37 | CONS ---
DATE OF ADMISSION: 02/01/2019 DATE OF CONSULTATION: TYPE OF CONSULTATION: Gastroenterology. REFERRING PHYSICIAN: [place] John MD Thank you for the kind referral. HISTORY OF PRESENT ILLNESS: The patient is an [place] female with a past medical history of hyperte nsion, stage IV colon cancer, status post colectomy, who last year, presented to [facility] for syncope. The patient on the way to the bathroom, felt dizzy and subsequently passed out on the chair. Her then tried to wake her up and he made multiple attempts. After that, he called the emergency personnel. The patient was then admitted to the hospital for further management . GI consult was called in because of abnormal finding on the CAT scan. The patient denies any abdo alda pain, no nausea, no vomiting, no chest pain, no shortness of breath, no GI bleeding. PAST MEDICAL HISTORY: Hypertension, stage IV colon cancer. SOCIAL HISTORY: Does not smoke or drink. PHYSICAL EXAMINATION: GENERAL: Alert, awake, not in distress. VITAL SIGNS: Stable. ABDOMEN: Benign. Midline surgical scar seen has healed well. LUNGS: Clear. EXTREMITIES: No edema. CENTRAL NERVOUS SYSTEM: Grossly within normal limits. LABORATORY DATA: Hematocrit has been significantly dropping. When she came in, it was 43, now it is 27, within 3 days. BUN was mildly elevated at 29, creatinine was 1.45. After hydration, BUN came d own to 22, creatinine is 0.91. BNP is otherwise grossly within normal limits. INR is normal. She h ad a CAT scan of the abdomen and pelvis done which showed postsurgical changes at rectal colonic anas tomosis and there was a thickening of the mucosal lining, either inflammatory or recurrence of the tu mor. She also had a soft tissue mass outside of the sigmoid colon in the pelvis and some lymph nodes were enlarged. IMPRESSION: 1. Anemia. 2. Syncopal episode, better. 3. Dehydration, improved. 4. Colon cancer, status post surgery last year. 5. Abnormal finding on the CAT scan with thickening of the anastomotic site and soft tissue mass out side the lumen. 6. Hypertension. 7. Sepsis. 8. Renal insufficiency. PLAN: At this point, is to proceed with a colonoscopy tomorrow. Discussed with her and has agreed. We will also send for a CEA level. Oncology consult also. Dictated By: JOEL TAYLOR/NTS Conf#: [id number] [facility]#: [id number] CC: [place] JOHN MD; RENA TELLO MD;*[facility]*
[2019-02-04] MEDS: POTASSIUM CHLORIDE 100 ML IVPB SCH ×3 (09:17→13:51)
[2019-02-04] MEDS ORDERED: POTASSIUM PHOSPHATE 20 MEQ in SOD CHLORIDE 0.9% 250 ML IVPB ONE ×2 (10:30→11:00)
--- NOTE | 2019-02-04 11:53 | PN ---
DATE: 02/04/2019 SUBJECTIVE: The patient was transferred from intensive care unit to telemetry. No other acute event s noted overnight. No hemoptysis, hematemesis, hematochezia. OBJECTIVE: VITAL SIGNS: Blood pressure is 114/61, respirations 20, pulse ox 77, temperature 97.7. HEENT: Head is normocephalic. NECK: Supple. HEART: Regular rate. LUNGS: Show diminished breath sounds at the base. ABDOMEN: Soft, nontender to palpation without rebound or guarding. EXTREMITIES: Negative for clubbing, cyanosis, no edema. DERMATOLOGIC: No rashes. MUSCULOSKELETAL: No joint effusion. NEUROLOGIC: No change in exam. MEDICATIONS: The patient's medications have been reviewed. LABORATORY DATA: Has been reviewed. IMAGING STUDIES: Have been reviewed. ASSESSMENT AND PLAN: 1. Nonoliguric acute kidney injury with unknown baseline creatinine. Etiology is secondary to hemod ynamics. The patient's renal function has improved with IV hydration. Continue current treatment pl an and supportive care and renally dose all meds. 2. Left-sided hydronephrosis. Etiology may have been secondary from extrinsic compression due to me tastatic cancer. Continue to monitor. 3. Hyperkalemia. Continue to replete potassium chloride. 4. Hypomagnesemia. We will replete with magnesium sulfate. 5. Anemia. Monitor hemoglobin and hematocrit levels. Patient is pending possible EGD. Follow up w ith GI. 6. Severe sepsis. The patient is currently on an antibiotic regimen. Continue. 7. Abdominal mass, unclear if this is secondary to abscess. Continue to monitor. Follow up with ge neral surgery. 8. Stage IV metastatic cancer. Continue to monitor. 9. History of hypotension. Dictated By: IZABEL DENG DO NR/NTS Conf#: [id number] DID#: [id number] CC: RENA TELLO MD; ZINA MACKAY MD; JOEL SCHUSTER MD;*End[facility]*
--- NOTE | 2019-02-04 12:16 | PREAC ---
Date/Time of Note Date/Time of Note DATE: 02/04/19 TIME: 12:15 Anesthesia Eval and Record Evaluation Time Pre-Procedure Interview DATE: 02/04/19 TIME: 12:15 Age 68 Sex female NPO: 8 hrs Preoperative diagnosis Colon mass Planned procedure Colonoscopy Past Medical History Past Medical History: Includes Cardio: HTN, Dyslipidemia Renal: CKD Surgery & Anesthesia Issues No known issue Meds Anticoagulation: No Beta Ranjit within 24 hr: No Reason Beta Ranjit not given: Pt. not on B-Ranjit Reported Medications Gabapentin* (Gabapentin*) 400 Mg Capsule, 400 MG PO BID, #90 CAP 02/01/19 Folic Acid* (Folic Acid*) 1 Mg Tablet, 1 MG PO DAILY, TAB 02/01/19 Cholecalciferol (Vitamin D3) 5,000 Unit Tablet, 5000 UNIT PO DAILY, TAB 02/01/19 Ondansetron Hcl* (Zofran*) 4 Mg Tablet, 4 MG PO Q8H PRN for NAUSEA AND OR VOMITING, TAB 02/01/19 Hydrocortisone* (Cortef*) 20 Mg Tablet, 20 MG PO BID, #60 TAB 02/01/19 Lisinopril* (Lisinopril*) 5 Mg Tablet, 5 MG PO DAILY, #30 TAB 02/01/19 Current Medications Sodium Chloride 1,000 ml @ 50 mls/hr Q20H IV Last administered on 02/02/19at 22:14; Admin Dose 100 MLS/HR; Start 02/01/19 at 17:53 IV Flush (NS 3 ml) 3 ml PER PROTOCOL IV ; Start 02/01/19 at 18:00 Ondansetron HCl (Zofran Inj) 4 mg Q6H PRN IV NAUSEA/VOMITING Last administered on 02/02/19at 01:25; Admin Dose 4 MG; Start 02/01/19 at 18:00 Acetaminophen (Tylenol Tab) 650 mg Q6H PRN PO .PAIN 1-3 OR TEMP; Start 02/01/19 at 18:00 Cholecalciferol (Vitamin D) 5,000 unit DAILY PO Last administered on 02/04/19at 08:29; Admin Dose 5,000 UNIT; Start 02/02/19 at 09:00 Folic Acid (Folic Acid) 1 mg DAILY PO Last administered on 02/04/19at 08:29; Admin Dose 1 MG; Start 02/02/19 at 09:00 Fentanyl (Sublimaze) 15 mcg Q3H PRN IV SEVERE PAIN LEVEL 7-10; Start 02/02/19 at 09:00 Hydrocortisone (Solu-Cortef) 100 mg Q12 IV Last administered on 02/04/19at 08:28; Admin Dose 100 MG; Start 02/02/19 at 09:00 Famotidine (Pepcid Iv) 20 mg DAILY IV Last administered on 02/04/19 08:28; Admin Dose 20 MG; Start 02/02/19 at 09:00 Vancomycin HCl (Vancomycin Oral Syringe) 125 mg Q6 PO Last administered on 02/04/19at 05:00; Admin Dose 125 MG; Start 02/03/19 at 16:00 Metronidazole 100 ml @ 100 mls/hr Q8 IVPB Last administered on 02/04/19 05:00; Admin Dose 100 MLS/HR; Start 02/03/19 at 15:00 Potassium Chloride 100 ml @ 50 mls/hr Q2H IVPB Last administered on 02/04/19at 11:30; Admin Dose 50 MLS/HR; Start 02/04/19 at 08:30; Stop 02/04/19 at 14:29 Potassium Phosphate 20 meq/ Sodium Chloride 254.5455 ml @ 63.636 m... ONCE ONCE IVPB ; Start 02/04/19 at 11:00; Stop 02/04/19 at 14:59 Meds reviewed: Yes Allergies Coded Allergies: No Known Allergy (Unverified , 02/01/19) Allergies Reviewed: Yes Labs/Studies Labs Reviewed: Reviewed by anesthesiologist Result Diagram: 02/04/19 0500 02/04/19 0500 Laboratory Tests 02/04/19 05:00 test: N/A Studies: ECG Pre-procedure Exam Last vitals Vital Signs Date Temp Pulse Resp B/P (MAP) Pulse Ox O2 O2 Flow FiO2 Time Delivery Rate 02/04/19 75 12:08 02/04/19 97.7 20 127/72 96 Room Air 11:57 (90) 02/03/19 2.0 06:00 Airway: Adequate mouth opening, Adequate thyromental dist Mallampati: Mallampati II Teeth: Normal Lung: Normal Heart: Normal ASA Physical Status ASA physical status: 3 Emergency: None Planned Anesthetic General/MAC: MAC Planned Pain Management Parenteral pain med Pre-operative Attestations Prior to commencing anesthesia and surgery, the patient was re-evaluated, there was verification of: *The patient's identity *The results of appropriate recent lab work and preoperative vital signs *The above evaluation not changing prior to induction *Anesthetic plan, risk benefits, alternative and complications discussed with patient/family; questions answered; patient/family understands, accepts and wishes to proceed. VANESSA GREY MD Feb 04, 2019 12:16
--- NOTE | 2019-02-04 12:51 | PAC ---
Date/Time of Note Date/Time of Note DATE: 02/04/19 TIME: 12:51 Post-Anesthesia Notes Post-Anesthesia Note Last documented vital signs Vital Signs Date Temp Pulse Resp B/P (MAP) Pulse Ox O2 O2 Flow FiO2 Time Delivery Rate 02/04/19 75 12:08 02/04/19 97.7 20 127/72 96 Room Air 11:57 (90) 02/03/19 2.0 06:00 Activity: WNL Respiratory function: WNL Cardiovascular function: WNL Mental status: Baseline Pain reasonably controlled: Yes Hydration appropriate: Yes Nausea/Vomiting absent: Yes Comments BP:112/56, P:74, Spo2:100%, T:98,8 VANESSA GREY MD Feb 04, 2019 12:51
--- NOTE | 2019-02-04 13:44 | PN ---
Date/Time of Note Date/Time of Note DATE: 02/04/19 TIME: 13:35 Assessment/Plan Lines/Catheters IV Catheter Type (from [facility]): Saline Lock Duran in Place (from [facility]): Yes Assessment/Plan Chief Complaint/Hosp Course 1. Abdominal pain: improved 2. Lactic acidosis 3. Leukocytosis with bandemia 4. CT findings of thickened proctoscopy: possible colitis versus perforation versus infectious: repeat ct noted without leak; possible recurrence of cancer, colitis: pus noted from anastamosis to descending colon -antibiotics per ID -IV fluids -Advance diet as tolerated -Supportive measures -no emergent surgical exploration necessary at this time> consider tx to her p rimary surgeon -We will need follow-up with oncology/primary surgeon/GI team 5. Syncope of unknown etiology -Work-up per medical team 6. Sepsis probably secondary to above -As above 7. Kidney injury with renal insufficiency -Judicious fluid management -Minimize nephrotoxic agents if possible 8. Stage IV colon cancer status post resection and chemotherapy -Oncology follow-up Thank you. Patient seen and examined in collaboration with Dr. Franky Tamayo. Subjective 24 Hr Interval Summary S/P colonoscopy. No acute complaints. No fevers, chills, sob, congested cough, cp, palpitations, alcantara, dizziness, n/v/d/dysuria. Exam/Review of Systems Vital Signs Vitals Vital Signs Date Temp Pulse Resp B/P (MAP) Pulse Ox O2 O2 Flow FiO2 Time Delivery Rate 02/04/19 74 19 138/68 95 Room Air 13:30 (91) 02/04/19 98.0 12:50 02/03/19 2.0 06:00 Intake and Output 02/03/19 02/03/19 02/04/19 1515:00 23:00 07:00 IntakeIntake Total 370 ml 1800 ml 320 ml OutputOutput Total 500 ml 200 ml BalanceBalance -130 ml 1600 ml 320 ml Exam Free Text/Dictation Constitutional: oriented; No distress Psych: nl mood/affect Head: normocephalic, atraumatic Eyes: nl conjunctiva, EOMI, PERRL; No icteric ENMT: nl external ears & nose; No mucosa pink and moist Neck: non-tender; No jvd Respiratory: normal air movement; No congested cough, No labored breathing, No wheezing Cardiovascular: No regular rate and rhythm, No edema Gastrointestinal: rebound or guarding (Normal), nontender Musculoskeletal: No nl gait and stance, No joint tenderness Extremities: normal pulses; No calf tenderness Neurological: nl mental status Skin: No rash or lesions, No diaphoresis Results Result Diagram: 02/04/19 05002/04/19 050 MOJGAN BURKS NP Feb 04, 2019 13:44
--- NOTE | 2019-02-04 14:14 | PN ---
Date/Time of Note Date/Time of Note DATE: 02/04/19 TIME: 14:13 Assessment/Plan VTE Prophylaxis Risk score (from [facility])>0 risk: 9 SCD applied (from [facility]): Yes Pharmacological prophylaxis: NA/contraindicated Pharm contraindication: surgical contra Lines/Catheters IV Catheter Type (from [facility]): Saline Lock Assessment/Plan Hospital Course 1. Syncope secondary to dehydration from chemotherapy -Continue IV hydration -CT and MRI with no significant findings -Carotid ultrasound does show moderate stenosis in the left carotid artery but this is not the likely etiology - echo pending 2. Hypotension secondary to dehydration -Patient is alert and oriented x4, no change from baseline -Hold patient's blood pressure medications -Continue IV fluid 3. Severe sepsis secondary to C. difficile -C. difficile is positive -Patient started on vancomycin p.o. by ID 4. Intra-abdominal pain likely secondary to C. difficile colitis -CT abdomen on scan does show colitis as well as possible recurrence of colon cancer -C. difficile is positive -Continue treatment 5. Hyponatremia -Resolved with fluids 6. Acute kidney injury versus chronic kidney disease -Improving with fluids 7. Chronic hydrocortisone use -Unknown reason, however will continue as patient is taking on a daily basis, twice daily, will need to inquire further from patient's family however patient's does not know exactly. 8. Stage IV colon cancer -Patient is status post hemicolectomy with reanastomosis last year -Status post 10 rounds of chemotherapy, last chemotherapy done approximately 2 weeks ago -Persistent nausea is causing patient's decreased p.o. intake -CT abdomen does show possible recurrence of colon cancer in the descending colon, patient son has requested GI evaluation -GI consultation appreciated, colonoscopy today 9. Decreased p.o. intake, failure to thrive secondary to chemotherapy -Continue clears -Zofran as needed -Replace electrolytes 10. History of hypertension -Hold patient BP meds for now secondary to hypotension Prophylaxis: SCDs Result Diagram: 02/04/19 0500 02/04/19 0500 Results 24hrs Laboratory Tests Test 02/04/19 05:00 White Blood Count 7.1 # Red Blood Count 3.23 L Hemoglobin 9.7 L Hematocrit 28.1 L Mean Corpuscular Volume 87.0 Mean Corpuscular Hemoglobin 30.0 Mean Corpuscular Hemoglobin Concent 34.5 Red Cell Distribution Width 12.5 Platelet Count 223 # Mean Platelet Volume 9.5 Immature Granulocytes % 0.600 H Neutrophils % Segmented Neutrophils % (Manual) 74 Band Neutrophils % (Manual) 18 H Lymphocytes % Lymphocytes % (Manual) 7 L Monocytes % Monocytes % (Manual) 1 Eosinophils % Basophils % Nucleated Red Blood Cells % 0.0 Immature Granulocytes # 0.040 H Neutrophils # Neutrophils # (Manual) 5.3 Band Neutrophils # 1.2 H Lymphocytes (Manual) 0.4 L Lymphocytes # Monocytes # Monocytes # (Manual) 0.0 L Eosinophils # Basophils # Nucleated Red Blood Cells # Platelet Estimate NORMAL Giant Platelets 4 H Poikilocytosis 2+ Sodium Level 142 Potassium Level 2.8 *L Chloride Level 114 H Carbon Dioxide Level 20 L Anion Gap 8 Blood Urea Nitrogen 19 Creatinine 0.73 Est Glomerular Filtrat Rate mL/min > 60 Glucose Level 148 Calcium Level 9.3 Phosphorus Level 1.5 #L Magnesium Level 2.2 Carcinoembryonic Antigen 5.9 H Subjective 24 Hr Interval Summary Constitutional: no complaints Exam/Review of Systems Exam Vitals Vital Signs Date Temp Pulse Resp B/P (MAP) Pulse Ox O2 O2 Flow FiO2 Time Delivery Rate 02/04/19 74 19 138/68 95 Room Air 13:30 (91) 02/04/19 98.0 12:50 02/03/19 2.0 06:00 Intake and Output 02/03/19 02/03/19 02/04/19 1515:00 23:00 07:00 IntakeIntake Total 370 ml 1800 ml 320 ml OutputOutput Total 500 ml 200 ml BalanceBalance -130 ml 1600 ml 320 ml Constitutional: alert, oriented Respiratory: clear to auscultation Cardiovascular: regular rate and rhythm Gastrointestinal: soft; No distended Musculoskeletal: nl extremities to inspection Results Results 24hrs Laboratory Tests Test 02/04/19 05:00 White Blood Count 7.1 # Red Blood Count 3.23 L Hemoglobin 9.7 L Hematocrit 28.1 L Mean Corpuscular Volume 87.0 Mean Corpuscular Hemoglobin 30.0 Mean Corpuscular Hemoglobin Concent 34.5 Red Cell Distribution Width 12.5 Platelet Count 223 # Mean Platelet Volume 9.5 Immature Granulocytes % 0.600 H Neutrophils % Segmented Neutrophils % (Manual) 74 Band Neutrophils % (Manual) 18 H Lymphocytes % Lymphocytes % (Manual) 7 L Monocytes % Monocytes % (Manual) 1 Eosinophils % Basophils % Nucleated Red Blood Cells % 0.0 Immature Granulocytes # 0.040 H Neutrophils # Neutrophils # (Manual) 5.3 Band Neutrophils # 1.2 H Lymphocytes (Manual) 0.4 L Lymphocytes # Monocytes # Monocytes # (Manual) 0.0 L Eosinophils # Basophils # Nucleated Red Blood Cells # Platelet Estimate NORMAL Giant Platelets 4 H Poikilocytosis 2+ Sodium Level 142 Potassium Level 2.8 *L Chloride Level 114 H Carbon Dioxide Level 20 L Anion Gap 8 Blood Urea Nitrogen 19 Creatinine 0.73 Est Glomerular Filtrat Rate mL/min > 60 Glucose Level 148 Calcium Level 9.3 Phosphorus Level 1.5 #L Magnesium Level 2.2 Carcinoembryonic Antigen 5.9 H Medications Medication Current Medications Sodium Chloride 1,000 ml @ 50 mls/hr Q20H IV Last administered on 02/02/19 22:14; Admin Dose 100 MLS/HR; Start 02/01/19 at 17:53 IV Flush (NS 3 ml) 3 ml PER PROTOCOL IV ; Start 02/01/19 at 18:00 Ondansetron HCl (Zofran Inj) 4 mg Q6H PRN IV NAUSEA/VOMITING Last administered on 02/02/19 01:25; Admin Dose 4 MG; Start 02/01/19 at 18:00 Acetaminophen (Tylenol Tab) 650 mg Q6H PRN PO .PAIN 1-3 OR TEMP; Start 02/01/19 at 18:00 Cholecalciferol (Vitamin D) 5,000 unit DAILY PO Last administered on 02/04/19 08:29; Admin Dose 5,000 UNIT; Start 02/02/19 at 09:00 Folic Acid (Folic Acid) 1 mg DAILY PO Last administered on 02/04/19 08:29; Admin Dose 1 MG; Start 02/02/19 at 09:00 Fentanyl (Sublimaze) 15 mcg Q3H PRN IV SEVERE PAIN LEVEL 7-10; Start 02/02/19 at 09:00 Hydrocortisone (Solu-Cortef) 100 mg Q12 IV Last administered on 02/04/19 08:28; Admin Dose 100 MG; Start 02/02/19 at 09:00 Famotidine (Pepcid Iv) 20 mg DAILY IV Last administered on 02/04/19 08:28; Admin Dose 20 MG; Start 02/02/19 at 09:00 Vancomycin HCl (Vancomycin Oral Syringe) 125 mg Q6 PO Last administered on 02/04/19at 05:00; Admin Dose 125 MG; Start 02/03/19 at 16:00 Metronidazole 100 ml @ 100 mls/hr Q8 IVPB Last administered on 02/04/19at 05:00; Admin Dose 100 MLS/HR; Start 02/03/19 at 15:00 Potassium Chloride 100 ml @ 50 mls/hr Q2H IVPB Last administered on 02/04/19at 13:51; Admin Dose 50 MLS/HR; Start 02/04/19 at 08:30; Stop 02/04/19 at 14:29 Potassium Phosphate 20 meq/ Sodium Chloride 254.5455 ml @ 63.636 m... ONCE ONCE IVPB ; Start 02/04/19 at 11:00; Stop 02/04/19 at 14:59 ZINA MACKAY Feb 04, 2019 14:14
--- NOTE | 2019-02-04 15:16 | CONS ---
Assessment/Plan Assessment/Plan Hospital Course (Demo Recall) 1300 Patient is awake looks comfortable no fevers overnight WBC today 7.1 BUN 19 creatinine 0.73 Antimicrobials: Oral Vanco and IV Flagyl Microbiology: Blood cultures remain negative stool positive came back positive Chest x-ray on admission revealed mild left basilar atelectasis the lungs are otherwise clear Physical examination: This is a fragile chronically ill-appearing elderly woman who is awake in no distress. Head atraumatic normocephalic neck is supple chest rise symmetrical breath sounds diminished bases heart S1-S2 abdomen soft bowel sounds present extremities without cyanosis Assessment: 1. C. difficile colitis 2. Status post respiratory failure 3. Metastatic colon cancer status post hemicolectomy 4. History of hypertension Plan: Patient is stable, scheduled for colonoscopy, continue antibiotics Consultation Date/Type/Reason Admit Date/Time Feb 01, 2019 at 17:44 Initial Consult Date 02/01/19 Type of Consult id Requesting Provider: VIKY GUZMAN Date/Time of Note DATE: 02/04/19 TIME: 15:15 Exam/Review of Systems Exam Vitals Vital Signs Date Temp Pulse Resp B/P (MAP) Pulse Ox O2 O2 Flow FiO2 Time Delivery Rate 02/04/19 74 19 138/68 95 Room Air 13:30 (91) 02/04/19 98.0 12:50 02/03/19 2.0 06:00 Intake and Output 02/03/19 02/03/19 02/04/19 1515:00 23:00 07:00 IntakeIntake Total 370 ml 1800 ml 320 ml OutputOutput Total 500 ml 200 ml BalanceBalance -130 ml 1600 ml 320 ml Results Result Diagram: 02/04/19 0500 02/04/19 0500 Results 24hrs Laboratory Tests Test 02/04/19 05:00 White Blood Count 7.1 # Red Blood Count 3.23 L Hemoglobin 9.7 L Hematocrit 28.1 L Mean Corpuscular Volume 87.0 Mean Corpuscular Hemoglobin 30.0 Mean Corpuscular Hemoglobin Concent 34.5 Red Cell Distribution Width 12.5 Platelet Count 223 # Mean Platelet Volume 9.5 Immature Granulocytes % 0.600 H Neutrophils % Segmented Neutrophils % (Manual) 74 Band Neutrophils % (Manual) 18 H Lymphocytes % Lymphocytes % (Manual) 7 L Monocytes % Monocytes % (Manual) 1 Eosinophils % Basophils % Nucleated Red Blood Cells % 0.0 Immature Granulocytes # 0.040 H Neutrophils # Neutrophils # (Manual) 5.3 Band Neutrophils # 1.2 H Lymphocytes (Manual) 0.4 L Lymphocytes # Monocytes # Monocytes # (Manual) 0.0 L Eosinophils # Basophils # Nucleated Red Blood Cells # Platelet Estimate NORMAL Giant Platelets 4 H Poikilocytosis 2+ Sodium Level 142 Potassium Level 2.8 *L Chloride Level 114 H Carbon Dioxide Level 20 L Anion Gap 8 Blood Urea Nitrogen 19 Creatinine 0.73 Est Glomerular Filtrat Rate mL/min > 60 Glucose Level 148 Calcium Level 9.3 Phosphorus Level 1.5 #L Magnesium Level 2.2 Carcinoembryonic Antigen 5.9 H Medications Medication Current Medications Sodium Chloride 1,000 ml @ 50 mls/hr Q20H IV Last administered on 02/02/19 22:14; Admin Dose 100 MLS/HR; Start 02/01/19 at 17:53 IV Flush (NS 3 ml) 3 ml PER PROTOCOL IV ; Start 02/01/19 at 18:00 Ondansetron HCl (Zofran Inj) 4 mg Q6H PRN IV NAUSEA/VOMITING Last administered on 02/02/19 01:25; Admin Dose 4 MG; Start 02/01/19 at 18:00 Acetaminophen (Tylenol Tab) 650 mg Q6H PRN PO .PAIN 1-3 OR TEMP; Start 02/01/19 at 18:00 Cholecalciferol (Vitamin D) 5,000 unit DAILY PO Last administered on 02/04/19 08:29; Admin Dose 5,000 UNIT; Start 02/02/19 at 09:00 Folic Acid (Folic Acid) 1 mg DAILY PO Last administered on 02/04/19 08:29; Admin Dose 1 MG; Start 02/02/19 at 09:00 Fentanyl (Sublimaze) 15 mcg Q3H PRN IV SEVERE PAIN LEVEL 7-10; Start 02/02/19 at 09:00 Hydrocortisone (Solu-Cortef) 100 mg Q12 IV Last administered on 02/04/19 08:28; Admin Dose 100 MG; Start 02/02/19 at 09:00 Famotidine (Pepcid Iv) 20 mg DAILY IV Last administered on 02/04/19 08:28; Admin Dose 20 MG; Start 02/02/19 at 09:00 Vancomycin HCl (Vancomycin Oral Syringe) 125 mg Q6 PO Last administered on 02/04/19at 14:22; Admin Dose 125 MG; Start 02/03/19 at 16:00 Metronidazole 100 ml @ 100 mls/hr Q8 IVPB Last administered on 02/04/19at 05:00; Admin Dose 100 MLS/HR; Start 02/03/19 at 15:00 OBED MASTERS NP Feb 04, 2019 15:16
[2019-02-04] MEDS: SOD CHLORIDE 0.9% 1,000 ML IV SCH (17:22)
[2019-02-04] MEDS: ACETAMINOPHEN 325 MG TAB PO PRN (22:38)
[2019-02-05] VITALS (10 sets, daily range): BP systolic 97–138; BP diastolic 59–88; PULSE 43–100; RESP 17–20
[2019-02-05] MEDS: metroNIDAZOLE 500 MG/NS (PMX) 100 ML IVPB SCH ×3 (04:45→20:33)
[2019-02-05] MEDS: VANCOMYCIN HCL 250 MG/5ML POSYG PO SCH ×4 (04:45→23:04)
[2019-02-05] MEDS: CHOLECALCIFEROL 1,000 UNIT TAB PO SCH (08:38)
[2019-02-05] MEDS: FAMOTIDINE 20 MG INJ IV SCH (08:38)
[2019-02-05] MEDS: HYDROCORTISONE 100 MG INJ IV SCH ×2 (08:38→20:33)
[2019-02-05] MEDS: FOLIC ACID 1 MG TAB PO SCH (08:39)
[2019-02-05] MEDS ORDERED: POTASSIUM CHLORIDE (SR) 20 MEQ TAB PO STA (08:54)
--- NOTE | 2019-02-05 09:42 | PN ---
Date/Time of Note Date/Time of Note DATE: 02/05/19 TIME: 09:38 Assessment/Plan Lines/Catheters IV Catheter Type (from [facility]): gene cath Duran in Place (from [facility]): Yes Assessment/Plan Chief Complaint/Hosp Course 1. Abdominal pain: improved 2. Lactic acidosis 3. Leukocytosis with bandemia: resolved 4. CT findings of thickened proctoscopy: possible colitis versus perforation versus infectious: repeat ct noted without leak; possible recurrence of cancer, colitis: pus noted from anastamosis to descending colon: +c diff -antibiotics per ID -IV fluids -Advance diet as tolerated -Supportive measures -no emergent surgical exploration necessary at this time> consider tx to her primary surgeon -will need follow-up with oncology/primary surgeon/GI team 5. Syncope of unknown etiology; now with episodes of bradycardia -consider cards consult -Work-up per medical team 6. Sepsis probably secondary to above -As above 7. Kidney injury with renal insufficiency -Judicious fluid management -Minimize nephrotoxic agents if possible 8. Stage IV colon cancer status post resection and chemotherapy -Oncology follow-up Thank you. Patient seen and examined in collaboration with Dr. Franky Tamayo. Subjective 24 Hr Interval Summary Episode of bradycardia. No fevers, chills, sob, congested cough, cp, palpitations, alcantara, dizziness, nausea, vomiting, diarrhea, dysuria. No abdominal pain. Exam/Review of Systems Vital Signs Vitals Vital Signs Date Temp Pulse Resp B/P (MAP) Pulse Ox O2 O2 Flow FiO2 Time Delivery Rate 02/05/19 52 08:28 02/05/19 97.9 18 97/63 (74) 99 07:25 02/05/19 Room Air 04:00 02/03/19 2.0 06:00 Intake and Output 02/04/19 02/04/19 02/05/19 1515:00 23:00 07:00 IntakeIntake Total 850 ml 440 ml OutputOutput Total 300 ml 550 ml 1200 ml BalanceBalance -300 ml 300 ml -760 ml Exam Free Text/Dictation Constitutional: oriented; No distress Psych: nl mood/affect Head: normocephalic, atraumatic Eyes: nl conjunctiva, EOMI, PERRL; No icteric ENMT: nl external ears & nose; No mucosa pink and moist Neck: non-tender; No jvd Respiratory: normal air movement; No congested cough, No labored breathing, No wheezing Cardiovascular: No regular rate and rhythm, No edema Gastrointestinal: rebound or guarding (Normal), nontender Musculoskeletal: No nl gait and stance, No joint tenderness Extremities: normal pulses; No calf tenderness Neurological: nl mental status Skin: No rash or lesions, No diaphoresis Results Result Diagram: 02/05/19 0451 02/05/19 0451 MOJGAN BURKS NP Feb 05, 2019 09:42
--- NOTE | 2019-02-05 10:21 | PN ---
DATE: 02/05/2019 SUBJECTIVE: The patient is stable, no events overnight. OBJECTIVE: VITAL SIGNS: Blood pressure is 97/63, respirations 18, pulse 100, temperature 97.9. HEENT: Head is normocephalic. NECK: Supple. HEART: Regular rate. LUNGS: Show diminished breath sounds at the base. ABDOMEN: Soft, nontender to palpation. No rebound or guarding. EXTREMITIES: Negative for clubbing, cyanosis, no edema. DERMATOLOGIC: No rashes. MUSCULOSKELETAL: No joint effusion. NEUROLOGIC: No change in exam. MEDICATIONS: Reviewed. LABORATORY DATA: Reviewed. IMAGING STUDIES: Reviewed. ASSESSMENT AND PLAN: 1. Nonoliguric acute kidney injury with unknown baseline creatinine. Etiology is secondary to hemod ynamics. Renal function is improved. Continue current treatment plan, supportive care and renally d ose all medications. 2. Hyperkalemia. Continue to monitor and replete. 3. Hypomagnesemia. Continue to monitor and replete as needed. 4. Mineral bone disorder. The patient is hypophosphatemic. Replete with potassium phosphate. 5. Anemia. Monitor hemoglobin and hematocrit levels. The patient is status post EGD with findings of gastritis. Continue to monitor. 6. Severe sepsis. Continue antibiotic regimen. 7. Stage IV metastatic cancer. Continue to monitor. 8. Hypertension, resolve. Dictated By: IZABEL DENG DO NR/NTS Conf#: [id number] DID#: [id number] CC: RENA TELLO MD; JOEL SCHUSTER MD; ZINA MACKAY MD;*EndCC*
--- NOTE | 2019-02-05 10:52 | CONS ---
Assessment/Plan Assessment/Plan Hospital Course (Demo Recall) No events over night, look comfortable Antimicrobials: Oral Vanco and IV Flagyl Microbiology: Blood cultures remain negative stool positive came back positive Chest x-ray on admission revealed mild left basilar atelectasis the lungs are otherwise clear Physical examination: This is a fragile chronically ill-appearing elderly woman who is awake in no distress. Head atraumatic normocephalic neck is supple chest rise symmetrical breath sounds diminished bases heart S1-S2 abdomen soft bowel sounds present extremities without cyanosis Assessment: 1. C. difficile colitis 2. Status post respiratory failure 3. Metastatic colon cancer status post hemicolectomy 4. History of hypertension Plan: Stable, continue antibiotics, f/u GI/surgical rec-s Consultation Date/Type/Reason Admit Date/Time Feb 01, 2019 at 17:44 Initial Consult Date 02/01/19 Type of Consult id Requesting Provider: VIKY GUZMAN Date/Time of Note DATE: 02/05/19 TIME: 10:51 Exam/Review of Systems Exam Vitals Vital Signs Date Temp Pulse Resp B/P (MAP) Pulse Ox O2 O2 Flow FiO2 Time Delivery Rate 02/05/19 52 08:28 02/05/19 97.9 18 97/63 (74) 99 07:25 02/05/19 Room Air 04:00 02/03/19 2.0 06:00 Intake and Output 02/04/19 02/04/19 02/05/19 1515:00 23:00 07:00 IntakeIntake Total 850 ml 440 ml OutputOutput Total 300 ml 550 ml 1200 ml BalanceBalance -300 ml 300 ml -760 ml Results Result Diagram: 02/05/19 0451 02/05/19 0451 Results 24hrs Laboratory Tests Test 02/05/19 04:51 White Blood Count 6.3 Red Blood Count 3.37 L Hemoglobin 10.2 L Hematocrit 29.5 L Mean Corpuscular Volume 87.5 Mean Corpuscular Hemoglobin 30.3 Mean Corpuscular Hemoglobin Concent 34.6 Red Cell Distribution Width 12.7 Platelet Count 232 Mean Platelet Volume 9.3 Immature Granulocytes % 1.300 H Neutrophils % 80.2 H Lymphocytes % 11.5 L Monocytes % 6.8 Eosinophils % 0.0 Basophils % 0.2 Nucleated Red Blood Cells % 0.0 Immature Granulocytes # 0.080 H Neutrophils # 5.0 Lymphocytes # 0.7 L Monocytes # 0.4 Eosinophils # 0.0 Basophils # 0.0 Nucleated Red Blood Cells # 0.0 Sodium Level 143 Potassium Level 3.0 L Chloride Level 112 H Carbon Dioxide Level 21 Anion Gap 10 Blood Urea Nitrogen 22 H Creatinine 0.70 Est Glomerular Filtrat Rate mL/min > 60 Glucose Level 144 Calcium Level 9.0 Phosphorus Level 1.6 L Magnesium Level 1.9 Medications Medication Current Medications IV Flush (NS 3 ml) 3 ml PER PROTOCOL IV ; Start 02/01/19 at 18:00 Ondansetron HCl (Zofran Inj) 4 mg Q6H PRN IV NAUSEA/VOMITING Last administered on 02/02/19 01:25; Admin Dose 4 MG; Start 02/01/19 at 18:00 Acetaminophen (Tylenol Tab) 650 mg Q6H PRN PO .PAIN 1-3 OR TEMP Last administered on 02/04/19 22:38; Admin Dose 650 MG; Start 02/01/19 at 18:00 Cholecalciferol (Vitamin D) 5,000 unit DAILY PO Last administered on 02/05/19 08:38; Admin Dose 5,000 UNIT; Start 02/02/19 at 09:00 Folic Acid (Folic Acid) 1 mg DAILY PO Last administered on 02/05/19 08:39; Admin Dose 1 MG; Start 02/02/19 at 09:00 Fentanyl (Sublimaze) 15 mcg Q3H PRN IV SEVERE PAIN LEVEL 7-10; Start 02/02/19 at 09:00 Hydrocortisone (Solu-Cortef) 100 mg Q12 IV Last administered on 02/05/19 08:38; Admin Dose 100 MG; Start 02/02/19 at 09:00 Famotidine (Pepcid Iv) 20 mg DAILY IV Last administered on 02/05/19 08:38; Admin Dose 20 MG; Start 02/02/19 at 09:00 Vancomycin HCl (Vancomycin Oral Syringe) 125 mg Q6 PO Last administered on 02/05/19 04:45; Admin Dose 125 MG; Start 02/03/19 at 16:00 Metronidazole 100 ml @ 100 mls/hr Q8 IVPB Last administered on 02/05/19 04:45; Admin Dose 100 MLS/HR; Start 02/03/19 at 15:00 Sodium Phosphate (Neutra-Phos) 250 mg BID PO ; Start 02/05/19 at 21:00 OBED MASTERS NP Feb 05, 2019 10:52
--- NOTE | 2019-02-05 12:19 | CONS ---
Assessment/Plan Assessment/Plan Assessment/Plan (Daily) IMPRESSION: 1. Anemia. 2. Syncopal episode, better. 3. Dehydration, improved. 4. Colon cancer, status post surgery last year. 5. Abnormal finding on the CAT scan with thickening of the anastomotic site and soft tissue mass outside the lumen. 6. Hypertension. 7. Sepsis. 8. Renal insufficiency. 9. C. difficile colitis 10. Colonoscopy finding there was no recurrence of tumor patient had colitis. Plan Continue vancomycin and complete the course Also probiotic Monitor H&H. Encourage p.o. feeding Consultation Date/Type/Reason Admit Date/Time Feb 01, 2019 at 17:44 Initial Consult Date 02/01/19 Requesting Provider: VIKY GUZMAN Date/Time of Note DATE: 02/05/19 TIME: 12:17 24 HR Interval Summary Free Text/Dictation Since abdominal pain is much better Diarrhea improved Constitutional: improved Exam/Review of Systems Exam Vitals Vital Signs Date Temp Pulse Resp B/P (MAP) Pulse Ox O2 O2 Flow FiO2 Time Delivery Rate 02/05/19 66 12:04 02/05/19 97.9 18 97/63 (74) 99 07:25 02/05/19 Room Air 04:00 02/03/19 2.0 06:00 Intake and Output 02/04/19 02/04/19 02/05/19 1515:00 23:00 07:00 IntakeIntake Total 850 ml 440 ml OutputOutput Total 300 ml 550 ml 1200 ml BalanceBalance -300 ml 300 ml -760 ml Constitutional: alert, oriented, well developed Psych: no complaints, nl mood/affect Head: normocephalic, atraumatic Eyes: nl conjunctiva, EOMI, nl lids, nl sclera, PERRL ENMT: nl external ears & nose, nl lips & teeth, nl nasal mucosa & septum Neck: supple, non-tender Respiratory: clear to auscultation, normal air movement Cardiovascular: regular rate and rhythm, nl pulses Gastrointestinal: soft, nl liver, spleen, non-tender Musculoskeletal: nl extremities to inspection, nl gait and stance Extremities: normal pulses Neurological: BUFFER COPPER II-XII intact, nl mental status, nl speech, nl strength Skin: nl turgor; No rash or lesions Lymph: nl lymph nodes Results Result Diagram: 02/05/191 02/05/19 0451 Results 24hrs Laboratory Tests Test 02/05/19 04:51 White Blood Count 6.3 Red Blood Count 3.37 L Hemoglobin 10.2 L Hematocrit 29.5 L Mean Corpuscular Volume 87.5 Mean Corpuscular Hemoglobin 30.3 Mean Corpuscular Hemoglobin Concent 34.6 Red Cell Distribution Width 12.7 Platelet Count 232 Mean Platelet Volume 9.3 Immature Granulocytes % 1.300 H Neutrophils % 80.2 H Lymphocytes % 11.5 L Monocytes % 6.8 Eosinophils % 0.0 Basophils % 0.2 Nucleated Red Blood Cells % 0.0 Immature Granulocytes # 0.080 H Neutrophils # 5.0 Lymphocytes # 0.7 L Monocytes # 0.4 Eosinophils # 0.0 Basophils # 0.0 Nucleated Red Blood Cells # 0.0 Sodium Level 143 Potassium Level 3.0 L Chloride Level 112 H Carbon Dioxide Level 21 Anion Gap 10 Blood Urea Nitrogen 22 H Creatinine 0.70 Est Glomerular Filtrat Rate mL/min > 60 Glucose Level 144 Calcium Level 9.0 Phosphorus Level 1.6 L Magnesium Level 1.9 Medications Medication Current Medications IV Flush (NS 3 ml) 3 ml PER PROTOCOL IV ; Start 02/01/19 at 18:00 Ondansetron HCl (Zofran Inj) 4 mg Q6H PRN IV NAUSEA/VOMITING Last administered on 02/02/19at 01:25; Admin Dose 4 MG; Start 02/01/19 at 18:00 Acetaminophen (Tylenol Tab) 650 mg Q6H PRN PO .PAIN 1-3 OR TEMP Last administered on 02/04/19at 22:38; Admin Dose 650 MG; Start 02/01/19 at 18:00 Cholecalciferol (Vitamin D) 5,000 unit DAILY PO Last administered on 02/05/19at 08:38; Admin Dose 5,000 UNIT; Start 02/02/19 at 09:00 Folic Acid (Folic Acid) 1 mg DAILY PO Last administered on 02/05/19 08:39; Admin Dose 1 MG; Start 02/02/19 at 09:00 Fentanyl (Sublimaze) 15 mcg Q3H PRN IV SEVERE PAIN LEVEL 7-10; Start 02/02/19 at 09:00 Hydrocortisone (Solu-Cortef) 100 mg Q12 IV Last administered on 02/05/19 08:38; Admin Dose 100 MG; Start 02/02/19 at 09:00 Famotidine (Pepcid Iv) 20 mg DAILY IV Last administered on 02/05/19at 08:38; Admin Dose 20 MG; Start 02/02/19 at 09:00 Vancomycin HCl (Vancomycin Oral Syringe) 125 mg Q6 PO Last administered on 02/05/19at 04:45; Admin Dose 125 MG; Start 02/03/19 at 16:00 Metronidazole 100 ml @ 100 mls/hr Q8 IVPB Last administered on 02/05/19at 04:45; Admin Dose 100 MLS/HR; Start 02/03/19 at 15:00 Sodium Phosphate (Neutra-Phos) 250 mg BID PO ; Start 02/05/19 at 21:00 JOEL SCHUSTER MD Feb 05, 2019 12:18
--- NOTE | 2019-02-05 14:52 | PN ---
Date/Time of Note Date/Time of Note DATE: 02/05/19 TIME: 14:48 Assessment/Plan VTE Prophylaxis Risk score (from Ns)>0 risk: 10 SCD applied (from Ns): Yes Pharmacological prophylaxis: LMWH Lines/Catheters IV Catheter Type (from [facility]): gene cath Assessment/Plan Hospital Course 1. Syncope secondary to dehydration from chemotherapy -Continue IV hydration -CT and MRI with no significant findings -Carotid ultrasound does show moderate stenosis in the left carotid artery but this is not the likely etiology -Echo with preserved EF 2. Hypotension secondary to dehydration -Patient is alert and oriented x4, no change from baseline -Hold patient's blood pressure medications -Continue IV fluid 3. Severe sepsis secondary to C. difficile -C. difficile is positive -Patient started on vancomycin p.o. and Flagyl IV by ID 4. Intra-abdominal pain secondary to C. difficile colitis -CT abdomen on scan does show colitis as well as possible recurrence of colon cancer -C. difficile is positive -Continue treatment, patient still with diarrhea 5. Hyponatremia -Resolved with fluids 6. Acute kidney injury versus chronic kidney disease -Improving with fluids 7. Chronic hydrocortisone use -Unknown reason, however will continue 8. Stage IV colon cancer -Patient is status post hemicolectomy with reanastomosis last year -Status post 10 rounds of chemotherapy, last chemotherapy done approximately 2 w eeks ago -Persistent nausea is causing patient's decreased p.o. intake -CT abdomen suggested possible recurrence of colon cancer in the descending colon -GI consultation appreciated, colonoscopy done and shows no evidence of tumor, colitis noted 9. Decreased p.o. intake, failure to thrive secondary to chemotherapy -Continue clears -Zofran as needed -Replace electrolytes 10. History of hypertension -Hold patient BP meds for now secondary to hypotension Prophylaxis: Lovenox DC planning: Not stable for DC as patient continues to have diarrhea and electrolyte deficiency, DC once diarrhea resolved Result Diagram: 02/05/19 0451 02/05/19 0451 Results 24hrs Laboratory Tests Test 02/05/19 04:51 White Blood Count 6.3 Red Blood Count 3.37 L Hemoglobin 10.2 L Hematocrit 29.5 L Mean Corpuscular Volume 87.5 Mean Corpuscular Hemoglobin 30.3 Mean Corpuscular Hemoglobin Concent 34.6 Red Cell Distribution Width 12.7 Platelet Count 232 Mean Platelet Volume 9.3 Immature Granulocytes % 1.300 H Neutrophils % 80.2 H Lymphocytes % 11.5 L Monocytes % 6.8 Eosinophils % 0.0 Basophils % 0.2 Nucleated Red Blood Cells % 0.0 Immature Granulocytes # 0.080 H Neutrophils # 5.0 Lymphocytes # 0.7 L Monocytes # 0.4 Eosinophils # 0.0 Basophils # 0.0 Nucleated Red Blood Cells # 0.0 Sodium Level 143 Potassium Level 3.0 L Chloride Level 112 H Carbon Dioxide Level 21 Anion Gap 10 Blood Urea Nitrogen 22 H Creatinine 0.70 Est Glomerular Filtrat Rate mL/min > 60 Glucose Level 144 Calcium Level 9.0 Phosphorus Level 1.6 L Magnesium Level 1.9 Subjective 24 Hr Interval Summary Gastrointestinal: diarrhea Exam/Review of Systems Exam Vitals Vital Signs Date Temp Pulse Resp B/P (MAP) Pulse Ox O2 O2 Flow FiO2 Time Delivery Rate 02/05/19 66 12:04 02/05/19 97.9 18 97/63 (74) 99 07:25 02/05/19 Room Air 04:00 02/03/19 2.0 06:00 Intake and Output 02/04/19 02/04/19 02/05/19 1515:00 23:00 07:00 IntakeIntake Total 850 ml 440 ml OutputOutput Total 300 ml 550 ml 1200 ml BalanceBalance -300 ml 300 ml -760 ml Constitutional: alert, oriented Respiratory: clear to auscultation Cardiovascular: regular rate and rhythm Gastrointestinal: soft; No distended Musculoskeletal: nl extremities to inspection Results Results 24hrs Laboratory Tests Test 02/05/19 04:51 White Blood Count 6.3 Red Blood Count 3.37 L Hemoglobin 10.2 L Hematocrit 29.5 L Mean Corpuscular Volume 87.5 Mean Corpuscular Hemoglobin 30.3 Mean Corpuscular Hemoglobin Concent 34.6 Red Cell Distribution Width 12.7 Platelet Count 232 Mean Platelet Volume 9.3 Immature Granulocytes % 1.300 H Neutrophils % 80.2 H Lymphocytes % 11.5 L Monocytes % 6.8 Eosinophils % 0.0 Basophils % 0.2 Nucleated Red Blood Cells % 0.0 Immature Granulocytes # 0.080 H Neutrophils # 5.0 Lymphocytes # 0.7 L Monocytes # 0.4 Eosinophils # 0.0 Basophils # 0.0 Nucleated Red Blood Cells # 0.0 Sodium Level 143 Potassium Level 3.0 L Chloride Level 112 H Carbon Dioxide Level 21 Anion Gap 10 Blood Urea Nitrogen 22 H Creatinine 0.70 Est Glomerular Filtrat Rate mL/min > 60 Glucose Level 144 Calcium Level 9.0 Phosphorus Level 1.6 L Magnesium Level 1.9 Medications Medication Current Medications IV Flush (NS 3 ml) 3 ml PER PROTOCOL IV ; Start 02/01/19 at 18:00 Ondansetron HCl (Zofran Inj) 4 mg Q6H PRN IV NAUSEA/VOMITING Last administered on 02/02/19 01:25; Admin Dose 4 MG; Start 02/01/19 at 18:00 Acetaminophen (Tylenol Tab) 650 mg Q6H PRN PO .PAIN 1-3 OR TEMP Last admin istered on 02/04/19 22:38; Admin Dose 650 MG; Start 02/01/19 at 18:00 Cholecalciferol (Vitamin D) 5,000 unit DAILY PO Last administered on 02/05/19 08:38; Admin Dose 5,000 UNIT; Start 02/02/19 at 09:00 Folic Acid (Folic Acid) 1 mg DAILY PO Last administered on 02/05/19 08:39; Admin Dose 1 MG; Start 02/02/19 at 09:00 Fentanyl (Sublimaze) 15 mcg Q3H PRN IV SEVERE PAIN LEVEL 7-10; Start 02/02/19 at 09:00 Hydrocortisone (Solu-Cortef) 100 mg Q12 IV Last administered on 02/05/19 08:38; Admin Dose 100 MG; Start 02/02/19 at 09:00 Famotidine (Pepcid Iv) 20 mg DAILY IV Last administered on 02/05/19 08:38; Admin Dose 20 MG; Start 02/02/19 at 09:00 Vancomycin HCl (Vancomycin Oral Syringe) 125 mg Q6 PO Last administered on 02/05/19 12:43; Admin Dose 125 MG; Start 02/03/19 at 16:00 Metronidazole 100 ml @ 100 mls/hr Q8 IVPB Last administered on 02/05/19 14:00; Admin Dose 100 MLS/HR; Start 02/03/19 at 15:00 Sodium Phosphate (Neutra-Phos) 250 mg BID PO ; Start 02/05/19 at 21:00 ZINA MACKAY Feb 05, 2019 14:52
[2019-02-05] MEDS: NEUTRA-PHOS 250 MG PACKET PO SCH (20:33)
[2019-02-05] MEDS: GABAPENTIN 400 MG CAP PO SCH (20:33)
[2019-02-06] VITALS (11 sets, daily range): BP systolic 80–141; BP diastolic 73–88; PULSE 66–85; RESP 18–20
[2019-02-06] MEDS: VANCOMYCIN HCL 250 MG/5ML POSYG PO SCH ×3 (04:17→17:23)
[2019-02-06] MEDS: metroNIDAZOLE 500 MG/NS (PMX) 100 ML IVPB SCH ×3 (04:17→20:15)
[2019-02-06] MEDS: NEUTRA-PHOS 250 MG PACKET PO SCH ×2 (08:33→20:15)
[2019-02-06] MEDS: GABAPENTIN 400 MG CAP PO SCH ×2 (08:33→20:15)
[2019-02-06] MEDS: FOLIC ACID 1 MG TAB PO SCH (08:33)
[2019-02-06] MEDS: CHOLECALCIFEROL 1,000 UNIT TAB PO SCH (08:33)
[2019-02-06] MEDS: HYDROCORTISONE 100 MG INJ IV SCH ×2 (08:33→20:15)
[2019-02-06] MEDS: FAMOTIDINE 20 MG INJ IV SCH (08:33)
[2019-02-06] MEDS: ENOXAPARIN 40 MG/0.4 ML SYG SC SCH (08:54)
[2019-02-06] MEDS ORDERED: POTASSIUM CHLORIDE (SR) 20 MEQ TAB PO STA ×2 (09:17→14:34)
--- NOTE | 2019-02-06 09:21 | CONS ---
Consult Date/Type/Reason Admit Date/Time Feb 01, 2019 at 17:44 Initial Consult Date 02/01/19 Requesting Provider: VIKY GUZMAN Date/Time of Note DATE: 02/06/19 TIME: 09:14 Subjective The patient is seen in telemetry. No other acute events noted overnight. No hemoptysis, hematemesis, hematochezia. OBJECTIVE: HEENT: Head is normocephalic. NECK: Supple. HEART: Regular rate. LUNGS: Show diminished breath sounds at the base. ABDOMEN: Soft, nontender to palpation without rebound or guarding. EXTREMITIES: Negative for clubbing, cyanosis, no edema. DERMATOLOGIC: No rashes. MUSCULOSKELETAL: No joint effusion. NEUROLOGIC: No change in exam. MEDICATIONS: The patient's medications have been reviewed. Objective Vitals Vital Signs Date Temp Pulse Resp B/P (MAP) Pulse Ox O2 O2 Flow FiO2 Time Delivery Rate 02/06/19 97.7 75 18 134/80 96 08:03 (98) 02/05/19 Room Air 04:00 02/03/19 2.0 06:00 Intake and Output 02/05/19 02/05/19 02/06/19 1515:00 23:00 07:00 IntakeIntake Total 100 ml 500 ml 450 ml OutputOutput Total 1800 ml BalanceBalance 100 ml 500 ml -1350 ml Results/Medications Result Diagram: 02/05/19 0451 02/06/19 0456 Results 24 hrs Laboratory Tests Test 02/06/19 04:56 Sodium Level 142 Potassium Level 2.4 *L Chloride Level 107 Carbon Dioxide Level 24 Anion Gap 11 Blood Urea Nitrogen 18 Creatinine 0.64 Est Glomerular Filtrat Rate mL/min > 60 Glucose Level 136 Calcium Level 8.7 Phosphorus Level 2.1 L Magnesium Level 1.5 L Home Meds Reported Medications Gabapentin* (Gabapentin*) 400 Mg Capsule, 400 MG PO BID, #90 CAP 02/01/19 Folic Acid* (Folic Acid*) 1 Mg Tablet, 1 MG PO DAILY, TAB 02/01/19 Cholecalciferol (Vitamin D3) 5,000 Unit Tablet, 5000 UNIT PO DAILY, TAB 02/01/19 Ondansetron Hcl* (Zofran*) 4 Mg Tablet, 4 MG PO Q8H PRN for NAUSEA AND OR VOMITING, TAB 6/17/19 Hydrocortisone* (Cortef*) 20 Mg Tablet, 20 MG PO BID, #60 TAB 02/01/19 Lisinopril* (Lisinopril*) 5 Mg Tablet, 5 MG PO DAILY, #30 TAB 02/01/19 Medications Current Medications IV Flush (NS 3 ml) 3 ml PER PROTOCOL IV ; Start 02/01/19 at 18:00 Ondansetron HCl (Zofran Inj) 4 mg Q6H PRN IV NAUSEA/VOMITING Last administered on 02/02/19 01:25; Admin Dose 4 MG; Start 02/01/19 at 18:00 Acetaminophen (Tylenol Tab) 650 mg Q6H PRN PO .PAIN 1-3 OR TEMP Last administered on 02/04/19 22:38; Admin Dose 650 MG; Start 02/01/19 at 18:00 Cholecalciferol (Vitamin D) 5,000 unit DAILY PO Last administered on 02/06/19 08:33; Admin Dose 5,000 UNIT; Start 02/02/19 at 09:00 Folic Acid (Folic Acid) 1 mg DAILY PO Last administered on 02/06/19 08:33; Admin Dose 1 MG; Start 02/02/19 at 09:00 Fentanyl (Sublimaze) 15 mcg Q3H PRN IV SEVERE PAIN LEVEL 7-10; Start 02/02/19 at 09:00 Hydrocortisone (Solu-Cortef) 100 mg Q12 IV Last administered on 02/06/19 08:33; Admin Dose 100 MG; Start 02/02/19 at 09:00 Famotidine (Pepcid Iv) 20 mg DAILY IV Last administered on 02/06/19 08:33; Admin Dose 20 MG; Start 02/02/19 at 09:00 Vancomycin HCl (Vancomycin Oral Syringe) 125 mg Q6 PO Last administered on 02/06/19 04:17; Admin Dose 125 MG; Start 02/03/19 at 16:00 Metronidazole 100 ml @ 100 mls/hr Q8 IVPB Last administered on 02/06/19 04:17; Admin Dose 100 MLS/HR; Start 02/03/19 at 15:00 Sodium Phosphate (Neutra-Phos) 250 mg BID PO Last administered on 02/06/19 08:33; Admin Dose 250 MG; Start 02/05/19 at 21:00 Gabapentin (Neurontin) 400 mg BID PO Last administered on 02/06/19at 08:33; Admin Dose 400 MG; Start 02/05/19 at 21:00 Enoxaparin Sodium (Lovenox) 40 mg DAILY SC Last administered on 02/06/19at 08:54 ; Admin Dose 40 MG; Start 02/06/19 at 09:00 Assessment/Plan Assessment/Plan (Daily) 1. Nonoliguric acute kidney injury with unknown baseline creatinine. Etiology is secondary to hemodynamics. The patient's renal function has improved with IV hydration. Continue current treatment plan and supportive care and renally dose all meds. - watch for diuretic phase of carlos a with electrolyte wasting. - replace k, mag, phos 2. Left-sided hydronephrosis. Etiology may have been secondary from extrinsic compression due to metastatic cancer. Continue to monitor. 3. Hypokalemia. likely related to diuretic phase of carlos a. possible component of mineralorcorticoid effect from iv cortef. Continue to replete potassium chloride. supplement mag. monitor. 4. Hypomagnesemia. We will replete with magnesium sulfate. 5. Anemia. Monitor hemoglobin and hematocrit levels. Patient is pending possible EGD. Follow up with GI. 6. Severe sepsis. The patient is currently on an antibiotic regimen. Continue. 7. Abdominal mass, unclear if this is secondary to abscess. Continue to monitor. Follow up with general surgery. 8. Stage IV metastatic cancer. Continue to monitor. 9. History of hypotension. SAMANTA THOMAS MD Feb 06, 2019 09:21
[2019-02-06] MEDS ORDERED: MAGNESIUM SULFATE 4 GM/100 ML 100 ML IVPB ONE (10:00)
[2019-02-06] MEDS ORDERED: POTASSIUM PHOSPHATE 15 MM in SOD CHLORIDE 0.9% 250 ML IVPB ONE (11:00)
--- NOTE | 2019-02-06 11:08 | CONS ---
Assessment/Plan Assessment/Plan Hospital Course (Demo Recall) ID PROGRESS NOTE CURRENT ABX: DAY # =>Vanco LIQUID po + Flagyl IV 02/05/1945002/06/19455 24H INTERVAL SUMMARY * VSS, NAD, no fevers * Antimicrobials: Oral Vanco and IV Flagyl * Microbiology: Blood cultures remain negative stool positive came back positive DIAGNOSTIC IMAGING * Chest x-ray on admission revealed mild left basilar atelectasis the lungs are otherwise clear PHYSICAL EXAMINATION: GENERAL: VSS, NAD HEENT: AT, NC, NECK: Supple, CHEST: Rise symmetrical without dyspnea on observation HEART: Pulse RRR ABDOMEN: Benign EXTREMITIES: Warm, dry SKIN: No rash, no diaphoresis ID ASSESSMENT 68 yo F admit with: 1. C. difficile colitis 2. Status post respiratory failure 3. Metastatic colon cancer status post hemicolectomy 4. History of hypertension (-)MRSA Nares ABX ALLERGIES: KNDA INVASIVES: PIV CURRENT ABX: DAY # Vanco LIQUID po + Flagyl IV ID RECOMMENDATIONS/PLAN: 1. Continue ABX over the weekend 2. Follow GI/surgical rec-s . Consultation Date/Type/Reason Admit Date/Time Feb 01, 2019 at 17:44 Initial Consult Date 02/01/19 Requesting Provider: VIKY GUZMAN Date/Time of Note DATE: 02/06/19 TIME: 11:08 Exam/Review of Systems Exam Vitals Vital Signs Date Temp Pulse Resp B/P (MAP) Pulse Ox O2 O2 Flow FiO2 Time Delivery Rate 02/06/19 97.7 75 18 134/80 96 08:03 (98) 02/05/19 Room Air 04:00 02/03/19 2.0 06:00 Intake and Output 02/05/19 02/05/19 02/06/19 1515:00 23:00 07:00 IntakeIntake Total 100 ml 500 ml 450 ml OutputOutput Total 1800 ml BalanceBalance 100 ml 500 ml -1350 ml Results Result Diagram: 02/05/1945002/06/19455 Results 24hrs Laboratory Tests Test 02/06/19 04:56 Sodium Level 142 Potassium Level 2.4 *L Chloride Level 107 Carbon Dioxide Level 24 Anion Gap 11 Blood Urea Nitrogen 18 Creatinine 0.64 Est Glomerular Filtrat Rate mL/min > 60 Glucose Level 136 Calcium Level 8.7 Phosphorus Level 2.1 L Magnesium Level 1.5 L Medications Medication Current Medications IV Flush (NS 3 ml) 3 ml PER PROTOCOL IV ; Start 02/01/19 at 18:00 Ondansetron HCl (Zofran Inj) 4 mg Q6H PRN IV NAUSEA/VOMITING Last administered on 02/02/19 01:25; Admin Dose 4 MG; Start 02/01/19 at 18:00 Acetaminophen (Tylenol Tab) 650 mg Q6H PRN PO .PAIN 1-3 OR TEMP Last administered on 02/04/19 22:38; Admin Dose 650 MG; Start 02/01/19 at 18:00 Cholecalciferol (Vitamin D) 5,000 unit DAILY PO Last administered on 02/06/19 08:33; Admin Dose 5,000 UNIT; Start 02/02/19 at 09:00 Folic Acid (Folic Acid) 1 mg DAILY PO Last administered on 02/06/19 08:33; Admin Dose 1 MG; Start 02/02/19 at 09:00 Fentanyl (Sublimaze) 15 mcg Q3H PRN IV SEVERE PAIN LEVEL 7-10; Start 02/02/19 at 09:00 Hydrocortisone (Solu-Cortef) 100 mg Q12 IV Last administered on 02/06/19 08:33; Admin Dose 100 MG; Start 02/02/19 at 09:00 Famotidine (Pepcid Iv) 20 mg DAILY IV Last administered on 02/06/19 08:33; Admin Dose 20 MG; Start 02/02/19 at 09:00 Vancomycin HCl (Vancomycin Oral Syringe) 125 mg Q6 PO Last administered on 02/06/19 04:17; Admin Dose 125 MG; Start 02/03/19 at 16:00 Metronidazole 100 ml @ 100 mls/hr Q8 IVPB Last administered on 02/06/19 04:17; Admin Dose 100 MLS/HR; Start 02/03/19 at 15:00 Sodium Phosphate (Neutra-Phos) 250 mg BID PO Last administered on 02/06/19 08:33; Admin Dose 250 MG; Start 02/05/19 at 21:00 Gabapentin (Neurontin) 400 mg BID PO Last administered on 02/06/19 08:33; Admin Dose 400 MG; Start 02/05/19 at 21:00 Enoxaparin Sodium (Lovenox) 40 mg DAILY SC Last administered on 02/06/19at 08:54; Admin Dose 40 MG; Start 02/06/19 at 09:00 Magnesium Sulfate 100 ml @ 25 mls/hr ONCE ONCE IVPB Last administered on 02/06/19at 10:24; Admin Dose 25 MLS/HR; Start 02/06/19 at 10:00; Stop 02/06/19 at 13:59 Potassium Phosphate 15 mm/ Sodium Chloride 255 ml @ 63.75 mls/ hr ONCE ONCE IVPB ; Start 02/06/19 at 11:00; Stop 02/06/19 at 14:59 ROSITA PUTNAM NP Feb 06, 2019 11:08
--- NOTE | 2019-02-06 12:16 | CONS ---
Assessment/Plan Assessment/Plan Assessment/Plan (Daily) Assessment/Plan (Daily) IMPRESSION: 1. Anemia. 2. Syncopal episode, better. 3. Dehydration, improved. 4. Colon cancer, status post surgery last year. 5. Abnormal finding on the CAT scan with thickening of the anastomotic site and soft tissue mass outside the lumen. 6. Hypertension. 7. Sepsis. 8. Renal insufficiency. 9. C. difficile colitis 10. Colonoscopy finding there was no recurrence of tumor patient had colitis. 11. Hypokalemia and hypomagnesemia Plan Continue vancomycin and complete the course Also probiotic Monitor H&H. Encourage p.o. feeding Replace potassium and magnesium Consultation Date/Type/Reason Admit Date/Time Feb 01, 2019 at 17:44 Initial Consult Date 02/01/19 Requesting Provider: VIKY GUZMAN Date/Time of Note DATE: 02/06/19 TIME: 12:15 24 HR Interval Summary Free Text/Dictation No diarrhea as per the staff No abdominal pain no nausea no vomiting Constitutional: improved Exam/Review of Systems Exam Vitals Vital Signs Date Temp Pulse Resp B/P (MAP) Pulse Ox O2 O2 Flow FiO2 Time Delivery Rate 02/06/19 97.7 79 18 119/76 93 11:11 (90) 02/05/19 Room Air 04:00 02/03/19 2.0 06:00 Intake and Output 02/05/19 02/05/19 02/06/19 1515:00 23:00 07:00 IntakeIntake Total 100 ml 500 ml 450 ml OutputOutput Total 1800 ml BalanceBalance 100 ml 500 ml -1350 ml Constitutional: alert, oriented, well developed Psych: no complaints, nl mood/affect Head: normocephalic, atraumatic Eyes: nl conjunctiva, EOMI, nl lids, nl sclera, PERRL ENMT: nl external ears & nose, nl lips & teeth, nl nasal mucosa & septum Neck: supple, non-tender Respiratory: clear to auscultation, normal air movement Cardiovascular: regular rate and rhythm, nl pulses Gastrointestinal: soft, nl liver, spleen, non-tender Musculoskeletal: nl extremities to inspection, nl gait and stance Extremities: normal pulses Neurological: ROPE TOW OPERATOR II-XII intact, nl mental status, nl speech, nl strength Skin: nl turgor; No rash or lesions Lymph: nl lymph nodes Results Result Diagram: 02/05/19 0451 02/06/19 0456 Results 24hrs Laboratory Tests Test 02/06/19 04:56 Sodium Level 142 Potassium Level 2.4 *L Chloride Level 107 Carbon Dioxide Level 24 Anion Gap 11 Blood Urea Nitrogen 18 Creatinine 0.64 Est Glomerular Filtrat Rate mL/min > 60 Glucose Level 136 Calcium Level 8.7 Phosphorus Level 2.1 L Magnesium Level 1.5 L Medications Medication Current Medications IV Flush (NS 3 ml) 3 ml PER PROTOCOL IV ; Start 02/01/19 at 18:00 Ondansetron HCl (Zofran Inj) 4 mg Q6H PRN IV NAUSEA/VOMITING Last administered on 02/02/19 01:25; Admin Dose 4 MG; Start 02/01/19 at 18:00 Acetaminophen (Tylenol Tab) 650 mg Q6H PRN PO .PAIN 1-3 OR TEMP Last administered on 02/04/19 22:38; Admin Dose 650 MG; Start 02/01/19 at 18:00 Cholecalciferol (Vitamin D) 5,000 unit DAILY PO Last administered on 02/06/19 08:33; Admin Dose 5,000 UNIT; Start 02/02/19 at 09:00 Folic Acid (Folic Acid) 1 mg DAILY PO Last administered on 02/06/19 08:33; Admin Dose 1 MG; Start 02/02/19 at 09:00 Fentanyl (Sublimaze) 15 mcg Q3H PRN IV SEVERE PAIN LEVEL 7-10; Start 02/02/19 at 09:00 Hydrocortisone (Solu-Cortef) 100 mg Q12 IV Last administered on 02/06/19 08:33; Admin Dose 100 MG; Start 02/02/19 at 09:00 Famotidine (Pepcid Iv) 20 mg DAILY IV Last administered on 02/06/19 08:33; Admin Dose 20 MG; Start 02/02/19 at 09:00 Vancomycin HCl (Vancomycin Oral Syringe) 125 mg Q6 PO Last administered on 02/06/19 04:17; Admin Dose 125 MG; Start 02/03/19 at 16:00 Metronidazole 100 ml @ 100 mls/hr Q8 IVPB Last administered on 02/06/19 04:17; Admin Dose 100 MLS/HR; Start 02/03/19 at 15:00 Sodium Phosphate (Neutra-Phos) 250 mg BID PO Last administered on 02/06/19 08:33; Admin Dose 250 MG; Start 02/05/19 at 21:00 Gabapentin (Neurontin) 400 mg BID PO Last administered on 02/06/19at 08:33; Admin Dose 400 MG; Start 02/05/19 at 21:00 Enoxaparin Sodium (Lovenox) 40 mg DAILY SC Last administered on 02/06/19at 08:54; Admin Dose 40 MG; Start 02/06/19 at 09:00 Magnesium Sulfate 100 ml @ 25 mls/hr ONCE ONCE IVPB Last administered on 02/06/19at 10:24; Admin Dose 25 MLS/HR; Start 02/06/19 at 10:00; Stop 02/06/19 at 13:59 Potassium Phosphate 15 mm/ Sodium Chloride 255 ml @ 63.75 mls/ hr ONCE ONCE IVPB ; Start 02/06/19 at 11:00; Stop 02/06/19 at 14:59 JOEL SCHUSTER MD Feb 06, 2019 12:16
--- NOTE | 2019-02-06 16:07 | PN ---
Date/Time of Note Date/Time of Note DATE: 02/06/19 TIME: 16:07 Assessment/Plan VTE Prophylaxis Risk score (from Ns)>0 risk: 11 SCD applied (from Ns): Yes Pharmacological prophylaxis: heparin Lines/Catheters IV Catheter Type (from [facility]): gene cath Urinary Cath still in place: Yes Reason Cath still needed: urinary retention Assessment/Plan Hospital Course 1. Syncope secondary to dehydration from chemotherapy -Continue IV hydration -CT and MRI with no significant findings -Carotid ultrasound does show moderate stenosis in the left carotid artery but this is not the likely etiology -Echo with preserved EF 2. Hypotension secondary to dehydration -Patient is alert and oriented x4, no change from baseline -Hold patient's blood pressure medications -Continue IV fluid 3. Severe sepsis secondary to C. difficile -C. difficile is positive -Patient started on vancomycin p.o. and Flagyl IV by ID 4. Intra-abdominal pain secondary to C. difficile colitis -CT abdomen on scan does show colitis as well as possible recurrence of colon cancer -C. difficile is positive -Continue treatment, patient still with diarrhea 5. Hyponatremia -Resolved with fluids 6. Acute kidney injury versus chronic kidney disease -Improving with fluids 7. Chronic hydrocortisone use -Unknown reason, however will continue 8. Stage IV colon cancer -Patient is status post hemicolectomy with reanastomosis last year -Status post 10 rounds of chemotherapy, last chemotherapy done approximately 2 weeks ago -Persistent nausea is causing patient's decreased p.o. intake -CT abdomen suggested possible recurrence of colon cancer in the descending colon -GI consultation appreciated, colonoscopy done and shows no evidence of tumor, colitis noted 9. Decreased p.o. intake, failure to thrive secondary to chemotherapy -Continue clears -Zofran as needed -Replace electrolytes 10. History of hypertension -Hold patient BP meds for now secondary to hypotension Prophylaxis: Lovenox DC planning: Not stable for DC as patient continues to have diarrhea and electrolyte deficiency, DC once diarrhea resolved Result Diagram: 02/05/19 0451 02/06/19 1401 Results 24hrs Laboratory Tests Test 02/06/19 04:56 02/06/19 14:01 Sodium Level 142 136 Potassium Level 2.4 *L 3.1 L Chloride Level 107 104 Carbon Dioxide Level 24 23 Anion Gap 11 9 Blood Urea Nitrogen 18 19 Creatinine 0.64 0.61 Est Glomerular Filtrat Rate mL/min > 60 > 60 Glucose Level 136 174 Calcium Level 8.7 8.2 L Phosphorus Level 2.1 L Magnesium Level 1.5 L Subjective 24 Hr Interval Summary Free Text/Dictation Continued diarrhea, hypokalemia Exam/Review of Systems Exam Vitals Vital Signs Date Temp Pulse Resp B/P (MAP) Pulse Ox O2 O2 Flow FiO2 Time Delivery Rate 02/06/19 98.3 78 18 120/73 95 15:01 (89) 02/05/19 Room Air 04:00 02/03/19 2.0 06:00 Intake and Output 02/05/19 02/05/19 02/06/19 1515:00 23:00 07:00 IntakeIntake Total 100 ml 500 ml 450 ml OutputOutput Total 1800 ml BalanceBalance 100 ml 500 ml -1350 ml Results Results 24hrs Laboratory Tests Test 02/06/19 04:56 02/06/19 14:01 Sodium Level 142 136 Potassium Level 2.4 *L 3.1 L Chloride Level 107 104 Carbon Dioxide Level 24 23 Anion Gap 11 9 Blood Urea Nitrogen 18 19 Creatinine 0.64 0.61 Est Glomerular Filtrat Rate mL/min > 60 > 60 Glucose Level 136 174 Calcium Level 8.7 8.2 L Phosphorus Level 2.1 L Magnesium Level 1.5 L Medications Medication Current Medications IV Flush (NS 3 ml) 3 ml PER PROTOCOL IV ; Start 02/01/19 at 18:00 Ondansetron HCl (Zofran Inj) 4 mg Q6H PRN IV NAUSEA/VOMITING Last administered on 02/02/19at 01:25; Admin Dose 4 MG; Start 02/01/19 at 18:00 Acetaminophen (Tylenol Tab) 650 mg Q6H PRN PO .PAIN 1-3 OR TEMP Last administered on 02/04/19at 22:38; Admin Dose 650 MG; Start 02/01/19 at 18:00 Cholecalciferol (Vitamin D) 5,000 unit DAILY PO Last administered on 02/06/19at 08:33; Admin Dose 5,000 UNIT; Start 02/02/19 at 09:00 Folic Acid (Folic Acid) 1 mg DAILY PO Last administered on 02/06/19at 08:33; Admin Dose 1 MG; Start 02/02/19 at 09:00 Fentanyl (Sublimaze) 15 mcg Q3H PRN IV SEVERE PAIN LEVEL 7-10; Start 02/02/19 at 09:00 Hydrocortisone (Solu-Cortef) 100 mg Q12 IV Last administered on 02/06/19 08:33; Admin Dose 100 MG; Start 02/02/19 at 09:00 Famotidine (Pepcid Iv) 20 mg DAILY IV Last administered on 02/06/19 08:33; Admin Dose 20 MG; Start 02/02/19 at 09:00 Vancomycin HCl (Vancomycin Oral Syringe) 125 mg Q6 PO Last administered on 02/06/19 12:24; Admin Dose 125 MG; Start 02/03/19 at 16:00 Metronidazole 100 ml @ 100 mls/hr Q8 IVPB Last administered on 02/06/19 14:19; Admin Dose 100 MLS/HR; Start 02/03/19 at 15:00 Sodium Phosphate (Neutra-Phos) 250 mg BID PO Last administered on 02/06/19 08:33; Admin Dose 250 MG; Start 02/05/19 at 21:00 Gabapentin (Neurontin) 400 mg BID PO Last administered on 02/06/19 08:33; Admin Dose 400 MG; Start 02/05/19 at 21:00 Enoxaparin Sodium (Lovenox) 40 mg DAILY SC Last administered on 02/06/19 08:5 4; Admin Dose 40 MG; Start 02/06/19 at 09:00 ALONZO LEMON MD Feb 06, 2019 16:07
--- NOTE | 2019-02-06 23:36 | PN ---
Date/Time of Note Date/Time of Note DATE: 02/06/19 TIME: 23:33 Assessment/Plan Lines/Catheters IV Catheter Type (from [facility]): portacath Duran in Place (from [facility]): Yes Assessment/Plan Chief Complaint/Hosp Course 1. Abdominal pain, improved 2. Lactic acidosis, improved 3. Leukocytosis with bandemia: resolved 4. CT findings of thickened proctoscopy: possible colitis versus perforation versus infectious: repeat ct noted without leak; possible recurrence of cancer, colitis: pus noted from anastomosis to descending colon: +c diff -antibiotics per ID -IV fluids -Advance diet as tolerated -Supportive measures -no emergent surgical exploration necessary at this time> consider tx to her primary surgeon -will need follow-up with oncology/primary surgeon/GI team 5. Syncope of unknown etiology; now with episodes of bradycardia -consider cards consult -Work-up per medical team 6. Sepsis probably secondary to above -As above 7. Kidney injury with renal insufficiency -Judicious fluid management -Minimize nephrotoxic agents if possible 8. Stage IV colon cancer status post resection and chemotherapy -Oncology follow-up Thank you Subjective 24 Hr Interval Summary Diarrhea. No fevers, chills, sob, congested cough, cp, palpitations, alcantara, dizziness, nausea, vomiting, dysuria. No abdominal pain. Exam/Review of Systems Vital Signs Vitals Vital Signs Date Temp Pulse Resp B/P (MAP) Pulse Ox O2 O2 Flow FiO2 Time Delivery Rate 02/06/19 98.1 85 18 141/88 95 22:25 (105) 02/05/19 Room Air 04:00 02/03/19 2.0 06:00 Intake and Output 02/05/19 02/05/19 02/06/19 1515:00 23:00 07:00 IntakeIntake Total 100 ml 500 ml 450 ml OutputOutput Total 1800 ml BalanceBalance 100 ml 500 ml -1350 ml Exam Free Text/Dictation Constitutional: oriented; No distress Psych: nl mood/affect Head: normocephalic, atraumatic Eyes: nl conjunctiva, EOMI, PERRL; No icteric ENMT: nl external ears & nose; No mucosa pink and moist Neck: non-tender; No jvd Respiratory: normal air movement; No congested cough, No labored breathing, No wheezing Cardiovascular: No regular rate and rhythm, No edema Gastrointestinal: rebound or guarding (Normal), nontender Musculoskeletal: No nl gait and stance, No joint tenderness Extremities: normal pulses; No calf tenderness Neurological: nl mental status Skin: No rash or lesions, No diaphoresis Results Result Diagram: 02/05/19 0451 02/06/19 1401 NADIRA LEIVA MD Feb 06, 2019 23:36
[2019-02-07] MEDS: VANCOMYCIN HCL 250 MG/5ML POSYG PO SCH ×4 (00:45→17:22)
[2019-02-07 02:42] VITALS: BP 127/84; PULSE 83; RESP 18
[2019-02-07] MEDS: metroNIDAZOLE 500 MG/NS (PMX) 100 ML IVPB SCH ×3 (05:37→21:20)
[2019-02-07 08:09] VITALS: BP 167/81; PULSE 67; RESP 18
[2019-02-07] MEDS ORDERED: POTASSIUM CHLORIDE (SR) 20 MEQ TAB PO ONE (08:30)
[2019-02-07] MEDS: POTASSIUM CHLORIDE 100 ML IVPB SCH ×2 (09:46→12:17)
[2019-02-07] MEDS: FAMOTIDINE 20 MG INJ IV SCH (09:46)
[2019-02-07] MEDS: GABAPENTIN 400 MG CAP PO SCH (09:46)
[2019-02-07] MEDS: FOLIC ACID 1 MG TAB PO SCH (09:46)
[2019-02-07] MEDS: CHOLECALCIFEROL 1,000 UNIT TAB PO SCH (09:46)
[2019-02-07] MEDS: ENOXAPARIN 40 MG/0.4 ML SYG SC SCH (09:47)
--- NOTE | 2019-02-07 11:05 | CONS ---
Consult Date/Type/Reason Admit Date/Time Feb 01, 2019 at 17:44 Initial Consult Date 02/01/19 Requesting Provider: VIKY GUZMAN Date/Time of Note DATE: 02/07/19 TIME: 10:59 Subjective continues good uo poc reviewed with dr. sevilla. HEENT: Head is normocephalic. NECK: Supple. HEART: Regular rate. LUNGS: Show diminished breath sounds at the base. ABDOMEN: Soft, nontender to palpation without rebound or guarding. EXTREMITIES: Negative for clubbing, cyanosis, no edema. DERMATOLOGIC: No rashes. MUSCULOSKELETAL: No joint effusion. NEUROLOGIC: No change in exam. MEDICATIONS: The patient's medications have been reviewed. Objective Vitals Vital Signs Date Temp Pulse Resp B/P (MAP) Pulse Ox O2 O2 Flow FiO2 Time Delivery Rate 02/07/19 97.6 67 18 167/81 97 08:09 (109) 02/05/19 Room Air 04:00 Intake and Output 02/06/19 02/06/19 02/07/19 1515:00 23:00 07:00 IntakeIntake Total 700 ml 400 ml 100 ml OutputOutput Total 900 ml 900 ml BalanceBalance -200 ml -500 ml 100 ml Results/Medications Result Diagram: 02/07/19 0654 02/07/19 0654 Results 24 hrs Laboratory Tests Test 02/06/19 14:01 02/07/19 06:54 Sodium Level 136 142 Potassium Level 3.1 L 2.7 *L Chloride Level 104 107 Carbon Dioxide Level 23 29 Anion Gap 9 6 Blood Urea Nitrogen 19 21 H Creatinine 0.61 0.59 Est Glomerular Filtrat Rate mL/min > 60 > 60 Glucose Level 174 114 # Calcium Level 8.2 L 8.2 L White Blood Count 6.3 Red Blood Count 3.86 L Hemoglobin 11.6 L Hematocrit 34.0 L Mean Corpuscular Volume 88.1 Mean Corpuscular Hemoglobin 30.1 Mean Corpuscular Hemoglobin Concent 34.1 Red Cell Distribution Width 13.0 Platelet Count 268 Mean Platelet Volume 9.2 Immature Granulocytes % 6.800 H Neutrophils % Segmented Neutrophils % (Manual) 58 Band Neutrophils % (Manual) 1 Lymphocytes % Lymphocytes % (Manual) 25 Monocytes % Monocytes % (Manual) 13 H Eosinophils % Basophils % Myelocytes % (Manual) 3 H Nucleated Red Blood Cells % 0.3 H Immature Granulocytes # 0.430 H Neutrophils # Neutrophils # (Manual) 3.7 Band Neutrophils # 0.0 Lymphocytes (Manual) 1.5 Lymphocytes # Monocytes # Monocytes # (Manual) 0.8 Eosinophils # Basophils # Myelocytes # 0.1 H Nucleated Red Blood Cells # Platelet Estimate NORMAL Polychromasia 1+ Poikilocytosis 2+ Magnesium Level 2.1 Home Meds Reported Medications Gabapentin* (Gabapentin*) 400 Mg Capsule, 400 MG PO BID, #90 CAP 02/01/19 Folic Acid* (Folic Acid*) 1 Mg Tablet, 1 MG PO DAILY, TAB 02/01/19 Cholecalciferol (Vitamin D3) 5,000 Unit Tablet, 5000 UNIT PO DAILY, TAB 02/01/19 Ondansetron Hcl* (Zofran*) 4 Mg Tablet, 4 MG PO Q8H PRN for NAUSEA AND OR VOMITING, TAB 02/01/19 Hydrocortisone* (Cortef*) 20 Mg Tablet, 20 MG PO BID, #60 TAB 02/01/19 Lisinopril* (Lisinopril*) 5 Mg Tablet, 5 MG PO DAILY, #30 TAB 02/01/19 Medications Current Medications IV Flush (NS 3 ml) 3 ml PER PROTOCOL IV ; Start 02/01/19 at 18:00 Ondansetron HCl (Zofran Inj) 4 mg Q6H PRN IV NAUSEA/VOMITING Last administered on 02/02/19at 01:25; Admin Dose 4 MG; Start 02/01/19 at 18:00 Acetaminophen (Tylenol Tab) 650 mg Q6H PRN PO .PAIN 1-3 OR TEMP Last administered on 02/04/19at 22:38; Admin Dose 650 MG; Start 02/01/19 at 18:00 Cholecalciferol (Vitamin D) 5,000 unit DAILY PO Last administered on 02/07/19at 09:46; Admin Dose 5,000 UNIT; Start 02/02/19 at 09:00 Folic Acid (Folic Acid) 1 mg DAILY PO Last administered on 02/07/19at 09:46; Admin Dose 1 MG; Start 02/02/19 at 09:00 Fentanyl (Sublimaze) 15 mcg Q3H PRN IV SEVERE PAIN LEVEL 7-10; Start 02/02/19 at 09:00 Famotidine (Pepcid Iv) 20 mg DAILY IV Last administered on 02/07/19 09:46; Admin Dose 20 MG; Start 02/02/19 at 09:00 Vancomycin HCl (Vancomycin Oral Syringe) 125 mg Q6 PO Last administered on 02/07/19 05:37; Admin Dose 125 MG; Start 02/03/19 at 16:00 Metronidazole 100 ml @ 100 mls/hr Q8 IVPB Last administered on 02/07/19 05:37; Admin Dose 100 MLS/HR; Start 02/03/19 at 15:00 Sodium Phosphate (Neutra-Phos) 250 mg BID PO Last administered on 02/06/19 20:15; Admin Dose 250 MG; Start 02/05/19 at 21:00 Gabapentin (Neurontin) 400 mg BID PO Last administered on 02/07/19 09:46; Admin Dose 400 MG; Start 02/05/19 at 21:00 Enoxaparin Sodium (Lovenox) 40 mg DAILY SC Last administered on 02/07/19 09:47; Admin Dose 40 MG; Start 02/06/19 at 09:00 Potassium Chloride 100 ml @ 50 mls/hr Q2H IVPB Last administered on 02/07/19 09:46; Admin Dose 50 MLS/HR; Start 02/07/19 at 09:00; Stop 02/07/19 at 12:59 Hydrocortisone (Cortef) 20 mg BID PO ; Start 02/07/19 at 21:00 Assessment/Plan Hospital Course (Demo Recall) 1. Nonoliguric acute kidney injury . Etiology is secondary to hemodynamics. The patient's renal function has improved with IV hydration. Continue current treatment plan and supportive care and renally dose all meds. - watch for diuretic phase of carlos a with electrolyte wasting. - replace k, 2. Left-sided hydronephrosis. Etiology may have been secondary from extrinsic compression due to metastatic cancer. Continue to monitor. 3. Hypokalemia. likely related to diuretic phase of carlos a. possible component of mineralorcorticoid effect from iv cortef. Continue to replete potassium chloride. supplemented mag. monitor. 4. Hypomagnesemia. sp replete with magnesium sulfate. 5. Anemia. Monitor hemoglobin and hematocrit levels. Follow up with GI. 6. Severe sepsis. The patient is currently on an antibiotic regimen. Continue. 7. Abdominal mass, unclear if this is secondary to abscess. Continue to monitor. Follow up with general surgery. 8. Stage IV metastatic cancer. Continue to monitor. 9. hypertension- restart lisinopril SAMANTA THOMAS MD Feb 07, 2019 11:05
--- NOTE | 2019-02-07 14:47 | PN ---
Date/Time of Note Date/Time of Note DATE: 02/07/19 TIME: 14:45 Assessment/Plan VTE Prophylaxis Risk score (from Ns)>0 risk: 11 SCD applied (from Ns): Yes Pharmacological prophylaxis: heparin Lines/Catheters IV C[facility]ter Type (from [facility]): Fariha cath Urinary Cath still in place: Yes Reason Cath still needed: urinary retention Assessment/Plan Hospital Course 68 yo female with h/o colon cancer presented with syncope. Found to have RG now with hypokalemia Syncope secondary to dehydration from chemotherapy -Continue IV hydration -CT and MRI with no significant findings -Echo with preserved EF Hypotension secondary to dehydration -Patient is alert and oriented x4, no change from baseline -Hold patient's blood pressure medications -Continue IV fluids Severe sepsis secondary to C. difficile -C. difficile is positive -Patient started on vancomycin p.o. and Flagyl IV by ID 4. Intra-abdominal pain secondary to C. difficile colitis -CT abdomen on scan does show colitis as well as possible recurrence of colon cancer -C. difficile is positive -Continue treatment, patient still with diarrhea 5. Hyponatremia -Resolved with fluids 6. Acute kidney injury versus chronic kidney disease - Resolved with fluids 7. Chronic hydrocortisone use -Unknown reason, likely causing an element of kaliuresis. Not clear to me why the dose was increased, will go back down to home dose of 20 mg BID and try to toncatct her oncologist on Friday Dr Jaramillo at [place] 8. Stage IV colon cancer -Patient is status post hemicolectomy with reanastomosis last year -Status post 10 rounds of chemotherapy, last chemotherapy done approximately 2 weeks ago -Persistent nausea is causing patient's decreased p.o. intake -CT abdomen suggested possible recurrence of colon cancer in the descending colon -GI consultation appreciated, colonoscopy done and shows no evidence of tumor, colitis noted 9. Decreased p.o. intake, failure to thrive secondary to chemotherapy -Continue clears -Zofran as needed -Replace electrolytes 10. History of hypertension -Hold patient BP meds for now secondary to hypotension Prophylaxis: Lovenox DC planning: Not stable for DC as patient continues to have electrolyte deficiency, DC once hypokalemia resolved Result Diagram: 02/07/19 0654 02/07/19 0654 Results 24hrs Laboratory Tests Test 02/07/19 06:54 White Blood Count 6.3 Red Blood Count 3.86 L Hemoglobin 11.6 L Hematocrit 34.0 L Mean Corpuscular Volume 88.1 Mean Corpuscular Hemoglobin 30.1 Mean Corpuscular Hemoglobin Concent 34.1 Red Cell Distribution Width 13.0 Platelet Count 268 Mean Platelet Volume 9.2 Immature Granulocytes % 6.800 H Neutrophils % Segmented Neutrophils % (Manual) 58 Band Neutrophils % (Manual) 1 Lymphocytes % Lymphocytes % (Manual) 25 Monocytes % Monocytes % (Manual) 13 H Eosinophils % Basophils % Myelocytes % (Manual) 3 H Nucleated Red Blood Cells % 0.3 H Immature Granulocytes # 0.430 H Neutrophils # Neutrophils # (Manual) 3.7 Band Neutrophils # 0.0 Lymphocytes (Manual) 1.5 Lymphocytes # Monocytes # Monocytes # (Manual) 0.8 Eosinophils # Basophils # Myelocytes # 0.1 H Nucleated Red Blood Cells # Platelet Estimate NORMAL Polychromasia 1+ Poikilocytosis 2+ Sodium Level 142 Potassium Level 2.7 *L Chloride Level 107 Carbon Dioxide Level 29 Anion Gap 6 Blood Urea Nitrogen 21 H Creatinine 0.59 Est Glomerular Filtrat Rate mL/min > 60 Glucose Level 114 # Calcium Level 8.2 L Magnesium Level 2.1 Subjective 24 Hr Interval Summary Free Text/Dictation Conitnues to have severe hypokalemia No diarrhea anymore Feels completely normla She is not sure why she was given hydrocortisone, it was given by her oncologist Exam/Review of Systems Exam Vitals Vital Signs Date Temp Pulse Resp B/P (MAP) Pulse Ox O2 O2 Flow FiO2 Time Delivery Rate 02/07/19 97.6 67 18 167/81 97 08:09 (109) 02/05/19 Room Air 04:00 Intake and Output 02/06/19 02/06/19 02/07/19 1515:00 23:00 07:00 IntakeIntake Total 700 ml 400 ml 100 ml OutputOutput Total 900 ml 900 ml BalanceBalance -200 ml -500 ml 100 ml Constitutional: alert, oriented, well developed Psych: no complaints, nl mood/affect Head: normocephalic, atraumatic Eyes: nl conjunctiva, EOMI, nl lids, nl sclera, PERRL ENMT: nl external ears & nose, nl lips & teeth, nl nasal mucosa & septum Neck: supple, non-tender Respiratory: clear to auscultation, normal air movement Cardiovascular: regular rate and rhythm, nl pulses Gastrointestinal: soft, nl liver, spleen, non-tender Musculoskeletal: nl extremities to inspection, nl gait and stance Extremities: normal pulses Neurological: [employer]ULT[employer] II-XII intact, nl mental status, nl speech, nl strength Skin: nl turgor; No rash or lesions Lymph: nl lymph nodes Results Results 24hrs Laboratory Tests Test 02/07/19 06:54 White Blood Count 6.3 Red Blood Count 3.86 L Hemoglobin 11.6 L Hematocrit 34.0 L Mean Corpuscular Volume 88.1 Mean Corpuscular Hemoglobin 30.1 Mean Corpuscular Hemoglobin Concent 34.1 Red Cell Distribution Width 13.0 Platelet Count 268 Mean Platelet Volume 9.2 Immature Granulocytes % 6.800 H Neutrophils % Segmented Neutrophils % (Manual) 58 Band Neutrophils % (Manual) 1 Lymphocytes % Lymphocytes % (Manual) 25 Monocytes % Monocytes % (Manual) 13 H Eosinophils % Basophils % Myelocytes % (Manual) 3 H Nucleated Red Blood Cells % 0.3 H Immature Granulocytes # 0.430 H Neutrophils # Neutrophils # (Manual) 3.7 Band Neutrophils # 0.0 Lymphocytes (Manual) 1.5 Lymphocytes # Monocytes # Monocytes # (Manual) 0.8 Eosinophils # Basophils # Myelocytes # 0.1 H Nucleated Red Blood Cells # Platelet Estimate NORMAL Polychromasia 1+ Poikilocytosis 2+ Sodium Level 142 Potassium Level 2.7 *L Chloride Level 107 Carbon Dioxide Level 29 Anion Gap 6 Blood Urea Nitrogen 21 H Creatinine 0.59 Est Glomerular Filtrat Rate mL/min > 60 Glucose Level 114 # Calcium Level 8.2 L Magnesium Level 2.1 Medications Medication Current Medications IV Flush (NS 3 ml) 3 ml PER PROTOCOL IV ; Start 02/01/19 at 18:00 Ondansetron HCl (Zofran Inj) 4 mg Q6H PRN IV NAUSEA/VOMITING Last administered on 02/02/19at 01:25; Admin Dose 4 MG; Start 02/01/19 at 18:00 Acetaminophen (Tylenol Tab) 650 mg Q6H PRN PO .PAIN 1-3 OR TEMP Last administered on 02/04/19at 22:38; Admin Dose 650 MG; Start 02/01/19 at 18:00 Cholecalciferol (Vitamin D) 5,000 unit DAILY PO Last administered on 02/07/19at 09:46; Admin Dose 5,000 UNIT; Start 02/02/19 at 09:00 Folic Acid (Folic Acid) 1 mg DAILY PO Last administered on 02/07/19 09:46; Admin Dose 1 MG; Start 02/02/19 at 09:00 Fentanyl (Sublimaze) 15 mcg Q3H PRN IV SEVERE PAIN LEVEL 7-10; Start 02/02/19 at 09:00 Vancomycin HCl (Vancomycin Oral Syringe) 125 mg Q6 PO Last administered on 02/07/19 12:17; Admin Dose 125 MG; Start 02/03/19 at 16:00 Metronidazole 100 ml @ 100 mls/hr Q8 IVPB Last administered on 02/07/19 14:33; Admin Dose 100 MLS/HR; Start 02/03/19 at 15:00 Enoxaparin Sodium (Lovenox) 40 mg DAILY SC Last administered on 02/07/19 09:47; Admin Dose 40 MG; Start 02/06/19 at 09:00 Hydrocortisone (Cortef) 20 mg BID PO ; Start 02/07/19 at 21:00 Lisinopril (Zestril) 20 mg DAILY PO ; Start 02/08/19 at 09:00 ALONZO LEMON MD Feb 07, 2019 14:47
[2019-02-07 15:42] VITALS: BP 147/79; PULSE 87; RESP 17
--- NOTE | 2019-02-07 18:35 | CONS ---
Assessment/Plan Assessment/Plan Hospital Course (Demo Recall) ID PROGRESS NOTE CURRENT ABX: DAY # =>Vanco LIQUID po + Flagyl IV 24H INTERVAL SUMMARY * SOMNOLENT -- patient not disturbed -- chart reviewed * VSS, NAD, no fevers * Antimicrobials: Oral Vanco and IV Flagyl * Microbiology: Blood cultures remain negative stool positive came back positive DIAGNOSTIC IMAGING * Chest x-ray on admission revealed mild left basilar atelectasis the lungs are otherwise clear PHYSICAL EXAMINATION: GENERAL: VSS, NAD HEENT: AT, NC, NECK: Supple, CHEST: Rise symmetrical without dyspnea on observation HEART: Pulse RRR ABDOMEN: Benign EXTREMITIES: Warm, dry SKIN: No rash, no diaphoresis ID ASSESSMENT 68 yo F admit with: 1. C. difficile colitis 2. Status post respiratory failure 3. Metastatic colon cancer status post hemicolectomy 4. History of hypertension (-)MRSA Nares ABX ALLERGIES: KNDA INVASIVES: PIV CURRENT ABX: DAY # Vanco LIQUID po + Flagyl IV ID RECOMMENDATIONS/PLAN: 1. Continue ABX over the weekend 2. Follow GI/surgical rec-s . Consultation Date/Type/Reason Admit Date/Time Feb 01, 2019 at 17:44 Initial Consult Date 02/01/19 Requesting Provider: VIKY GUZMAN Date/Time of Note DATE: 02/07/19 TIME: 18:34 Exam/Review of Systems Exam Vitals Vital Signs Date Temp Pulse Resp B/P (MAP) Pulse Ox O2 O2 Flow FiO2 Time Delivery Rate 02/07/19 97.8 87 17 147/79 95 15:42 (101) 02/05/19 Room Air 04:00 Intake and Output 02/06/19 02/06/19 02/07/19 1515:00 23:00 07:00 IntakeIntake Total 700 ml 400 ml 100 ml OutputOutput Total 900 ml 900 ml BalanceBalance -200 ml -500 ml 100 ml Results Result Diagram: 02/07/19 0654 02/07/19 0654 Results 24hrs Laboratory Tests Test 02/07/19 06:54 White Blood Count 6.3 Red Blood Count 3.86 L Hemoglobin 11.6 L Hematocrit 34.0 L Mean Corpuscular Volume 88.1 Mean Corpuscular Hemoglobin 30.1 Mean Corpuscular Hemoglobin Concent 34.1 Red Cell Distribution Width 13.0 Platelet Count 268 Mean Platelet Volume 9.2 Immature Granulocytes % 6.800 H Neutrophils % Segmented Neutrophils % (Manual) 58 Band Neutrophils % (Manual) 1 Lymphocytes % Lymphocytes % (Manual) 25 Monocytes % Monocytes % (Manual) 13 H Eosinophils % Basophils % Myelocytes % (Manual) 3 H Nucleated Red Blood Cells % 0.3 H Immature Granulocytes # 0.430 H Neutrophils # Neutrophils # (Manual) 3.7 Band Neutrophils # 0.0 Lymphocytes (Manual) 1.5 Lymphocytes # Monocytes # Monocytes # (Manual) 0.8 Eosinophils # Basophils # Myelocytes # 0.1 H Nucleated Red Blood Cells # Platelet Estimate NORMAL Polychromasia 1+ Poikilocytosis 2+ Sodium Level 142 Potassium Level 2.7 *L Chloride Level 107 Carbon Dioxide Level 29 Anion Gap 6 Blood Urea Nitrogen 21 H Creatinine 0.59 Est Glomerular Filtrat Rate mL/min > 60 Glucose Level 114 # Calcium Level 8.2 L Magnesium Level 2.1 Medications Medication Current Medications IV Flush (NS 3 ml) 3 ml PER PROTOCOL IV ; Start 02/01/19 at 18:00 Ondansetron HCl (Zofran Inj) 4 mg Q6H PRN IV NAUSEA/VOMITING Last administered on 02/02/19 01:25; Admin Dose 4 MG; Start 02/01/19 at 18:00 Acetaminophen (Tylenol Tab) 650 mg Q6H PRN PO .PAIN 1-3 OR TEMP Last administered on 02/04/19 22:38; Admin Dose 650 MG; Start 02/01/19 at 18:00 Cholecalciferol (Vitamin D) 5,000 unit DAILY PO Last administered on 02/07/19 09:46; Admin Dose 5,000 UNIT; Start 02/02/19 at 09:00 Folic Acid (Folic Acid) 1 mg DAILY PO Last administered on 02/07/19 09:46; Admin Dose 1 MG; Start 02/02/19 at 09:00 Fentanyl (Sublimaze) 15 mcg Q3H PRN IV SEVERE PAIN LEVEL 7-10; Start 02/02/19 at 09:00 Vancomycin HCl (Vancomycin Oral Syringe) 125 mg Q6 PO Last administered on 02/07/19 17:22; Admin Dose 125 MG; Start 02/03/19 at 16:00 Metronidazole 100 ml @ 100 mls/hr Q8 IVPB Last administered on 6/23/19at 14:33; Admin Dose 100 MLS/HR; Start 02/03/19 at 15:00 Enoxaparin Sodium (Lovenox) 40 mg DAILY SC Last administered on 02/07/19at 09:47; Admin Dose 40 MG; Start 02/06/19 at 09:00 Hydrocortisone (Cortef) 20 mg BID PO ; Start 02/07/19 at 21:00 Lisinopril (Zestril) 20 mg DAILY PO ; Start 02/08/19 at 09:00 ROSITA PUTNAM NP Feb 07, 2019 18:34
[2019-02-07 20:02] VITALS: BP 130/82; PULSE 93; RESP 18
[2019-02-07] MEDS: HYDROCORTISONE 20 MG TAB PO SCH (20:39)
--- NOTE | 2019-02-07 22:46 | PN ---
Date/Time of Note Date/Time of Note DATE: 02/07/19 TIME: 22:43 Assessment/Plan Lines/Catheters IV Catheter Type (from [facility]): Fariha cath Duran in Place (from [facility]): Yes Assessment/Plan Chief Complaint/Hosp Course 1. Abdominal pain, improved 2. Lactic acidosis, improved 3. Leukocytosis with bandemia: resolved 4. CT findings of thickened proctoscopy: possible colitis versus perforation versus infectious: repeat ct noted without leak; possible recurrence of cancer, colitis: pus noted from anastomosis to descending colon: +c diff -antibiotics per ID -IV fluids -diet -no emergent surgical indicated -will need follow-up with oncology/primary surgeon/GI team 5. Syncope; bradycardia -medical management 6. Sepsis probably secondary to above. Resolved -As above 7. Kidney injury with renal insufficiency -Judicious fluid management -Minimize nephrotoxic agents if possible 8. Stage IV colon cancer status post resection and chemotherapy -Oncology follow-up Thank you Subjective 24 Hr Interval Summary Diarrhea. No fevers, chills, sob, congested cough, cp, palpitations, alcantara, dizziness, nausea, vomiting, dysuria. No abdominal pain. Exam/Review of Systems Vital Signs Vitals Vital Signs Date Temp Pulse Resp B/P (MAP) Pulse Ox O2 O2 Flow FiO2 Time Delivery Rate 02/07/19 98.5 93 18 130/82 96 20:02 (98) 02/05/19 Room Air 04:00 Intake and Output 02/06/19 02/06/19 02/07/19 1515:00 23:00 07:00 IntakeIntake Total 700 ml 400 ml 100 ml OutputOutput Total 900 ml 900 ml BalanceBalance -200 ml -500 ml 100 ml Exam Free Text/Dictation Constitutional: oriented; No distress Psych: nl mood/affect Head: normocephalic, atraumatic Eyes: nl conjunctiva, EOMI, PERRL; No icteric ENMT: nl external ears & nose; No mucosa pink and moist Neck: non-tender; No jvd Respiratory: normal air movement; No congested cough, No labored breathing, No wheezing Cardiovascular: No regular rate and rhythm, No edema Gastrointestinal: rebound or guarding (Normal), nontender Musculoskeletal: No nl gait and stance, No joint tenderness Extremities: normal pulses; No calf tenderness Neurological: nl mental status Skin: No rash or lesions, No diaphoresis Results Result Diagram: 02/07/19 0654 02/07/19 0654 NADIRA LEIVA MD Feb 07, 2019 22:46
[2019-02-08] MEDS: VANCOMYCIN HCL 250 MG/5ML POSYG PO SCH ×5 (00:19→23:28)
[2019-02-08 02:00] VITALS: BP 140/92; PULSE 89; RESP 18
[2019-02-08] MEDS: metroNIDAZOLE 500 MG/NS (PMX) 100 ML IVPB SCH ×3 (05:14→21:22)
[2019-02-08 08:06] VITALS: BP 152/93; PULSE 86; RESP 18
[2019-02-08] MEDS: LISINOPRIL 20 MG TAB PO SCH (08:07)
[2019-02-08] MEDS: FOLIC ACID 1 MG TAB PO SCH (08:07)
[2019-02-08] MEDS: HYDROCORTISONE 20 MG TAB PO SCH ×2 (08:07→21:22)
[2019-02-08] MEDS: CHOLECALCIFEROL 1,000 UNIT TAB PO SCH (08:07)
[2019-02-08] MEDS: ENOXAPARIN 40 MG/0.4 ML SYG SC SCH (08:09)
--- NOTE | 2019-02-08 08:39 | CONS ---
Assessment/Plan Assessment/Plan Hospital Course (Demo Recall) 68 yo male with 1. Anemia. 2. Syncopal episode 3. Dehydration, improved. 4. Colon cancer, status post surgery last year. 5. Abnormal finding on the CAT scan with thickening of the anastomotic site and soft tissue mass outside the lumen. -Colonoscopy finding there was no recurrence of tumor patient had colitis. 6. Hypertension. 7. Sepsis. 8. Renal insufficiency. 9. C. difficile colitis 10. Hypokalemia and hypomagnesemia Plan Complete vancomycin course Contineu with probiotic Replete electrolytes as needed Encourage PO feedings Pt examined and plan of care discussed with Dr. Blanco Consultation Date/Type/Reason Admit Date/Time Feb 01, 2019 at 17:44 Initial Consult Date 02/01/19 Requesting Provider: VIKY GUZMAN Date/Time of Note DATE: 02/08/19 TIME: 08:37 24 HR Interval Summary Free Text/Dictation Tolerating PO diet. No c/o abd pain per RN. Diarrhea improved. Exam/Review of Systems Exam Vitals Vital Signs Date Temp Pulse Resp B/P (MAP) Pulse Ox O2 O2 Flow FiO2 Time Delivery Rate 02/08/19 99.1 86 18 152/93 97 08:06 (112) 02/05/19 Room Air 04:00 Intake and Output 02/07/19 02/07/19 02/08/19 1515:00 23:00 07:00 IntakeIntake Total 760 ml 700 ml 218 ml OutputOutput Total 1 ml 1 ml BalanceBalance 759 ml 699 ml 218 ml Constitutional: alert Psych: no complaints Head: normocephalic Eyes: PERRL Respiratory: normal air movement Gastrointestinal: soft, non-tender Neurological: nl mental status Results Result Diagram: 02/08/19 0607 02/08/19 0607 Results 24hrs Laboratory Tests Test 02/08/19 06:07 White Blood Count 7.9 # Red Blood Count 3.99 L Hemoglobin 11.9 L Hematocrit 35.2 L Mean Corpuscular Volume 88.2 Mean Corpuscular Hemoglobin 29.8 Mean Corpuscular Hemoglobin Concent 33.8 Red Cell Distribution Width 12.9 Platelet Count 245 Mean Platelet Volume 9.1 Immature Granulocytes % 7.500 H Neutrophils % Lymphocytes % Monocytes % Eosinophils % Basophils % Nucleated Red Blood Cells % 0.0 Immature Granulocytes # 0.590 H Neutrophils # Lymphocytes # Monocytes # Eosinophils # Basophils # Nucleated Red Blood Cells # Sodium Level 139 Potassium Level 3.4 L Chloride Level 108 Carbon Dioxide Level 26 Anion Gap 5 Blood Urea Nitrogen 19 Creatinine 0.55 Est Glomerular Filtrat Rate mL/min > 60 Glucose Level 96 Calcium Level 8.1 L Phosphorus Level 2.7 Magnesium Level 1.8 Total Bilirubin 0.7 Direct Bilirubin 0.00 Indirect Bilirubin 0.7 Aspartate Amino Transf (AST/SGOT) 36 Alanine Aminotransferase (ALT/SGPT) 33 Alkaline Phosphatase 85 Total Protein 5.3 L Albumin 2.6 L Globulin 2.70 Albumin/Globulin Ratio 0.96 Medications Medication Current Medications IV Flush (NS 3 ml) 3 ml PER PROTOCOL IV ; Start 02/01/19 at 18:00 Ondansetron HCl (Zofran Inj) 4 mg Q6H PRN IV NAUSEA/VOMITING Last administered on 02/02/19 01:25; Admin Dose 4 MG; Start 02/01/19 at 18:00 Acetaminophen (Tylenol Tab) 650 mg Q6H PRN PO .PAIN 1-3 OR TEMP Last administered on 02/04/19 22:38; Admin Dose 650 MG; Start 02/01/19 at 18:00 Cholecalciferol (Vitamin D) 5,000 unit DAILY PO Last administered on 02/08/19 08:07; Admin Dose 5,000 UNIT; Start 02/02/19 at 09:00 Folic Acid (Folic Acid) 1 mg DAILY PO Last administered on 02/08/19 08:07; Admin Dose 1 MG; Start 02/02/19 at 09:00 Fentanyl (Sublimaze) 15 mcg Q3H PRN IV SEVERE PAIN LEVEL 7-10; Start 02/02/19 at 09:00 Vancomycin HCl (Vancomycin Oral Syringe) 125 mg Q6 PO Last administered on 02/08/19 05:14; Admin Dose 125 MG; Start 02/03/19 at 16:00 Metronidazole 100 ml @ 100 mls/hr Q8 IVPB Last administered on 02/08/19 05:14; Admin Dose 100 MLS/HR; Start 02/03/19 at 15:00 Enoxaparin Sodium (Lovenox) 40 mg DAILY SC Last administered on 02/08/19 08:09; Admin Dose 40 MG; Start 02/06/19 at 09:00 Hydrocortisone (Cortef) 20 mg BID PO Last administered on 02/08/19at 08:07; Admin Dose 20 MG; Start 02/07/19 at 21:00 Lisinopril (Zestril) 20 mg DAILY PO Last administered on 02/08/19at 08:07; Admin Dose 20 MG; Start 02/08/19 at 09:00 VANESSA CARRERA Feb 08, 2019 08:38
[2019-02-08] MEDS ORDERED: POTASSIUM CHLORIDE (SR) 20 MEQ TAB PO STA (08:55)
--- NOTE | 2019-02-08 09:06 | PN ---
DATE: 02/08/2019 SUBJECTIVE: The patient is stable, no events overnight. OBJECTIVE: VITAL SIGNS: Blood pressure is 152/93, respirations 18, pulse 86, temperature 99.1. HEENT: Head is normocephalic. NECK: Supple. HEART: Regular rate. LUNGS: Show diminished breath sounds at the base. ABDOMEN: Soft, nontender to palpation without rebound or guarding. EXTREMITIES: Negative for clubbing, cyanosis, no edema. DERMATOLOGIC: No rashes. MUSCULOSKELETAL: No joint effusion. NEUROLOGIC: No change in exam. MEDICATIONS: Reviewed. LABORATORY DATA: Reviewed. IMAGING STUDIES: Reviewed. ASSESSMENT AND PLAN: 1. Nonoliguric acute kidney injury. Etiology is secondary to hemodynamics. Renal function is impro john. Continue current treatment plan, supportive care, renally dose all medications. 2. Left-sided hydronephrosis. Etiology is likely secondary to extrinsic compression due to metastat ic disease. Continue to monitor. 3. Hypokalemia. Continue to monitor and replete. 4. Hypomagnesemia. Continue to monitor and replete as needed. 5. Anemia. Monitor hemoglobin and hematocrit levels. Follow up with GI. 6. Severe sepsis. Continue current antibiotic regimen. 7. Metastatic colon cancer stage IV. Continue to monitor, continue supportive care. 8. Hypertension. Continue current blood pressure regimen. Dictated By: IZABEL DENG DO NR/NTS Conf#: [id number] DID#: [id number] CC: ALONZO LEMON MD; JOLE SCHUSTER MD; RENA TELLO MD;*EndCC*
--- NOTE | 2019-02-08 13:17 | PN ---
Date/Time of Note Date/Time of Note DATE: 02/08/19 TIME: 13:16 Assessment/Plan VTE Prophylaxis Risk score (from Ns)>0 risk: 11 SCD applied (from Nsg): Yes Pharmacological prophylaxis: heparin Lines/Catheters IV Catheter Type (from Nrsg): gene cath Urinary Cath still in place: Yes Reason Cath still needed: urinary retention Assessment/Plan Hospital Course 68 yo female with h/o colon cancer presented with syncope. Found to have RG now with hypokalemia Hypokelamia: - Replelte as required Syncope secondary to dehydration from chemotherapy -Continue IV hydration -CT and MRI with no significant findings -Echo with preserved EF Hypotension secondary to dehydration -Patient is alert and oriented x4, no change from baseline -Hold patient's blood pressure medications -Continue IV fluids Severe sepsis secondary to C. difficile -C. difficile is positive -Patient started on vancomycin p.o. and Flagyl IV by ID 4. Intra-abdominal pain secondary to C. difficile colitis -CT abdomen on scan does show colitis as well as possible recurrence of colon cancer -C. difficile is positive -Continue treatment, patient still with diarrhea 5. Hyponatremia -Resolved with fluids 6. Acute kidney injury versus chronic kidney disease - Resolved with fluids 7. Chronic hydrocortisone use -Unknown reason, likely causing an element of kaliuresis. Not clear to me why the dose was increased, will go back down to home dose of 20 mg BID and try to toncatct her oncologist on Friday Dr Jaramillo at [place] 8. Stage IV colon cancer -Patient is status post hemicolectomy with reanastomosis last year -Status post 10 rounds of chemotherapy, last chemotherapy done approximately 2 weeks ago -Persistent nausea is causing patient's decreased p.o. intake -CT abdomen suggested possible recurrence of colon cancer in the descending colon -GI consultation appreciated, colonoscopy done and shows no evidence of tumor, colitis noted 9. Decreased p.o. intake, failure to thrive secondary to chemotherapy -Continue clears -Zofran as needed -Replace electrolytes 10. History of hypertension -Hold patient BP meds for now secondary to hypotension Prophylaxis: Lovenox DC planning: Not stable for DC as patient continues to have electrolyte deficiency, DC once hypokalemia resolved Result Diagram: 02/08/19 0607 02/08/19 0607 Results 24hrs Laboratory Tests Test 02/08/19 06:07 White Blood Count 7.9 # Red Blood Count 3.99 L Hemoglobin 11.9 L Hematocrit 35.2 L Mean Corpuscular Volume 88.2 Mean Corpuscular Hemoglobin 29.8 Mean Corpuscular Hemoglobin Concent 33.8 Red Cell Distribution Width 12.9 Platelet Count 245 Mean Platelet Volume 9.1 Immature Granulocytes % 7.500 H Neutrophils % Segmented Neutrophils % (Manual) 42 Band Neutrophils % (Manual) 2 Lymphocytes % Lymphocytes % (Manual) 46 Reactive Lymphocytes % (Manual) 3 H Monocytes % Monocytes % (Manual) 3 Eosinophils % Eosinophils % (Manual) 2 Basophils % Metamyelocytes % (manual) 1 H Myelocytes % (Manual) 1 H Nucleated Red Blood Cells % 0.0 Immature Granulocytes # 0.590 H Neutrophils # Neutrophils # (Manual) 3.3 Band Neutrophils # 0.1 Lymphocytes (Manual) 3.6 H Lymphocytes # Reactive Lymphocytes # 0.2 H Monocytes # Monocytes # (Manual) 0.2 L Eosinophils # Basophils # Metamyelocytes # 0.0 Myelocytes # 0.0 Nucleated Red Blood Cells # Platelet Estimate NORMAL Polychromasia 1+ Sodium Level 139 Potassium Level 3.4 L Chloride Level 108 Carbon Dioxide Level 26 Anion Gap 5 Blood Urea Nitrogen 19 Creatinine 0.55 Est Glomerular Filtrat Rate mL/min > 60 Glucose Level 96 Calcium Level 8.1 L Phosphorus Level 2.7 Magnesium Level 1.8 Total Bilirubin 0.7 Direct Bilirubin 0.00 Indirect Bilirubin 0.7 Aspartate Amino Transf (AST/SGOT) 36 Alanine Aminotransferase (ALT/SGPT) 33 Alkaline Phosphatase 85 Total Protein 5.3 L Albumin 2.6 L Globulin 2.70 Albumin/Globulin Ratio 0.96 Subjective 24 Hr Interval Summary Free Text/Dictation Doing very well Seems diarrhea has resolved Electrolytes improving Exam/Review of Systems Exam Vitals Vital Signs Date Temp Pulse Resp B/P (MAP) Pulse Ox O2 O2 Flow FiO2 Time Delivery Rate 02/08/19 99.1 86 18 152/93 97 08:06 (112) 02/05/19 Room Air 04:00 Intake and Output 02/07/19 02/07/19 02/08/19 1515:00 23:00 07:00 IntakeIntake Total 760 ml 700 ml 218 ml OutputOutput Total 1 ml 1 ml BalanceBalance 759 ml 699 ml 218 ml Results Results 24hrs Laboratory Tests Test 02/08/19 06:07 White Blood Count 7.9 # Red Blood Count 3.99 L Hemoglobin 11.9 L Hematocrit 35.2 L Mean Corpuscular Volume 88.2 Mean Corpuscular Hemoglobin 29.8 Mean Corpuscular Hemoglobin Concent 33.8 Red Cell Distribution Width 12.9 Platelet Count 245 Mean Platelet Volume 9.1 Immature Granulocytes % 7.500 H Neutrophils % Segmented Neutrophils % (Manual) 42 Band Neutrophils % (Manual) 2 Lymphocytes % Lymphocytes % (Manual) 46 Reactive Lymphocytes % (Manual) 3 H Monocytes % Monocytes % (Manual) 3 Eosinophils % Eosinophils % (Manual) 2 Basophils % Metamyelocytes % (manual) 1 H Myelocytes % (Manual) 1 H Nucleated Red Blood Cells % 0.0 Immature Granulocytes # 0.590 H Neutrophils # Neutrophils # (Manual) 3.3 Band Neutrophils # 0.1 Lymphocytes (Manual) 3.6 H Lymphocytes # Reactive Lymphocytes # 0.2 H Monocytes # Monocytes # (Manual) 0.2 L Eosinophils # Basophils # Metamyelocytes # 0.0 Myelocytes # 0.0 Nucleated Red Blood Cells # Platelet Estimate NORMAL Polychromasia 1+ Sodium Level 139 Potassium Level 3.4 L Chloride Level 108 Carbon Dioxide Level 26 Anion Gap 5 Blood Urea Nitrogen 19 Creatinine 0.55 Est Glomerular Filtrat Rate mL/min > 60 Glucose Level 96 Calcium Level 8.1 L Phosphorus Level 2.7 Magnesium Level 1.8 Total Bilirubin 0.7 Direct Bilirubin 0.00 Indirect Bilirubin 0.7 Aspartate Amino Transf (AST/SGOT) 36 Alanine Aminotransferase (ALT/SGPT) 33 Alkaline Phosphatase 85 Total Protein 5.3 L Albumin 2.6 L Globulin 2.70 Albumin/Globulin Ratio 0.96 Medications Medication Current Medications IV Flush (NS 3 ml) 3 ml PER PROTOCOL IV ; Start 02/01/19 at 18:00 Ondansetron HCl (Zofran Inj) 4 mg Q6H PRN IV NAUSEA/VOMITING Last administered on 02/02/19at 01:25; Admin Dose 4 MG; Start 02/01/19 at 18:00 Acetaminophen (Tylenol Tab) 650 mg Q6H PRN PO .PAIN 1-3 OR TEMP Last administered on 02/04/19at 22:38; Admin Dose 650 MG; Start 02/01/19 at 18:00 Cholecalciferol (Vitamin D) 5,000 unit DAILY PO Last administered on 02/08/19 08:07; Admin Dose 5,000 UNIT; Start 02/02/19 at 09:00 Folic Acid (Folic Acid) 1 mg DAILY PO Last administered on 02/08/19 08:07; Admin Dose 1 MG; Start 02/02/19 at 09:00 Fentanyl (Sublimaze) 15 mcg Q3H PRN IV SEVERE PAIN LEVEL 7-10; Start 02/02/19 at 09:00 Vancomycin HCl (Vancomycin Oral Syringe) 125 mg Q6 PO Last administered on 11:36; Admin Dose 125 MG; Start 02/03/19 at 16:00 Metronidazole 100 ml @ 100 mls/hr Q8 IVPB Last administered on 02/08/19 05:14; Admin Dose 100 MLS/HR; Start 02/03/19 at 15:00 Enoxaparin Sodium (Lovenox) 40 mg DAILY SC Last administered on 02/08/19 08:09; Admin Dose 40 MG; Start 02/06/19 at 09:00 Hydrocortisone (Cortef) 20 mg BID PO Last administered on 02/08/19 08:07; Admin Dose 20 MG; Start 02/07/19 at 21:00 Lisinopril (Zestril) 20 mg DAILY PO Last administered on 02/08/19 08:07; Admin Dose 20 MG; Start 02/08/19 at 09:00 ALONZO LEMON MD Feb 08, 2019 13:17
[2019-02-08 14:50] VITALS: BP 132/85; PULSE 89; RESP 18
[2019-02-08] MEDS: ACETAMINOPHEN 325 MG TAB PO PRN (15:29)
--- NOTE | 2019-02-08 15:45 | CONS ---
Assessment/Plan Assessment/Plan Hospital Course (Demo Recall) No events over night Antimicrobials: Oral Vanco and IV Flagyl Microbiology: Blood cultures remain negative stool positive came back positive Chest x-ray on admission revealed mild left basilar atelectasis the lungs are otherwise clear Physical examination: This is a fragile chronically ill-appearing elderly woman who is awake in no distress. Head atraumatic normocephalic neck is supple chest rise symmetrical breath sounds diminished bases heart S1-S2 abdomen soft bowel sounds present extremities without cyanosis Assessment: 1. C. difficile colitis 2. Status post respiratory failure 3. Metastatic colon cancer status post hemicolectomy 4. History of hypertension Plan: Remains, stable, ok dc on oral Vanco to complete 2 weeks Consultation Date/Type/Reason Admit Date/Time Feb 01, 2019 at 17:44 Initial Consult Date 02/01/19 Type of Consult id Requesting Provider: VIKY GUZMAN Date/Time of Note DATE: 02/08/19 TIME: 15:44 Exam/Review of Systems Exam Vitals Vital Signs Date Temp Pulse Resp B/P (MAP) Pulse Ox O2 O2 Flow FiO2 Time Delivery Rate 02/08/19 99.0 89 18 132/85 97 14:50 (101) 02/05/19 Room Air 04:00 Intake and Output 02/07/19 02/07/19 02/08/19 1515:00 23:00 07:00 IntakeIntake Total 760 ml 700 ml 218 ml OutputOutput Total 1 ml 1 ml BalanceBalance 759 ml 699 ml 218 ml Results Result Diagram: 02/08/19 0607 02/08/19 0607 Results 24hrs Laboratory Tests Test 02/08/19 06:07 White Blood Count 7.9 # Red Blood Count 3.99 L Hemoglobin 11.9 L Hematocrit 35.2 L Mean Corpuscular Volume 88.2 Mean Corpuscular Hemoglobin 29.8 Mean Corpuscular Hemoglobin Concent 33.8 Red Cell Distribution Width 12.9 Platelet Count 245 Mean Platelet Volume 9.1 Immature Granulocytes % 7.500 H Neutrophils % Segmented Neutrophils % (Manual) 42 Band Neutrophils % (Manual) 2 Lymphocytes % Lymphocytes % (Manual) 46 Reactive Lymphocytes % (Manual) 3 H Monocytes % Monocytes % (Manual) 3 Eosinophils % Eosinophils % (Manual) 2 Basophils % Metamyelocytes % (manual) 1 H Myelocytes % (Manual) 1 H Nucleated Red Blood Cells % 0.0 Immature Granulocytes # 0.590 H Neutrophils # Neutrophils # (Manual) 3.3 Band Neutrophils # 0.1 Lymphocytes (Manual) 3.6 H Lymphocytes # Reactive Lymphocytes # 0.2 H Monocytes # Monocytes # (Manual) 0.2 L Eosinophils # Basophils # Metamyelocytes # 0.0 Myelocytes # 0.0 Nucleated Red Blood Cells # Platelet Estimate NORMAL Polychromasia 1+ Sodium Level 139 Potassium Level 3.4 L Chloride Level 108 Carbon Dioxide Level 26 Anion Gap 5 Blood Urea Nitrogen 19 Creatinine 0.55 Est Glomerular Filtrat Rate mL/min > 60 Glucose Level 96 Calcium Level 8.1 L Phosphorus Level 2.7 Magnesium Level 1.8 Total Bilirubin 0.7 Direct Bilirubin 0.00 Indirect Bilirubin 0.7 Aspartate Amino Transf (AST/SGOT) 36 Alanine Aminotransferase (ALT/SGPT) 33 Alkaline Phosphatase 85 Total Protein 5.3 L Albumin 2.6 L Globulin 2.70 Albumin/Globulin Ratio 0.96 Medications Medication Current Medications IV Flush (NS 3 ml) 3 ml PER PROTOCOL IV ; Start 02/01/19 at 18:00 Ondansetron HCl (Zofran Inj) 4 mg Q6H PRN IV NAUSEA/VOMITING Last administered on 02/02/19 01:25; Admin Dose 4 MG; Start 02/01/19 at 18:00 Acetaminophen (Tylenol Tab) 650 mg Q6H PRN PO .PAIN 1-3 OR TEMP Last administered on 02/08/19 15:29; Admin Dose 650 MG; Start 02/01/19 at 18:00 Cholecalciferol (Vitamin D) 5,000 unit DAILY PO Last administered on 02/08/19 08:07; Admin Dose 5,000 UNIT; Start 02/02/19 at 09:00 Folic Acid (Folic Acid) 1 mg DAILY PO Last administered on 02/08/19 08:07; Admin Dose 1 MG; Start 02/02/19 at 09:00 Fentanyl (Sublimaze) 15 mcg Q3H PRN IV SEVERE PAIN LEVEL 7-10; Start 02/02/19 at 09:00 Vancomycin HCl (Vancomycin Oral Syringe) 125 mg Q6 PO Last administered on 02/08/19at 11:36; Admin Dose 125 MG; Start 02/03/19 at 16:00 Metronidazole 100 ml @ 100 mls/hr Q8 IVPB Last administered on 02/08/19 14:29; Admin Dose 100 MLS/HR; Start 02/03/19 at 15:00 Enoxaparin Sodium (Lovenox) 40 mg DAILY SC Last administered on 02/08/19 08:09; Admin Dose 40 MG; Start 02/06/19 at 09:00 Hydrocortisone (Cortef) 20 mg BID PO Last administered on 02/08/19 08:07; Admin Dose 20 MG; Start 02/07/19 at 21:00 Lisinopril (Zestril) 20 mg DAILY PO Last administered on 02/08/19 08:07; Admin Dose 20 MG; Start 02/08/19 at 09:00 OBED MASTERS NP Feb 08, 2019 15:44
[2019-02-08 20:37] VITALS: BP 125/73; PULSE 91; RESP 18
--- NOTE | 2019-02-08 23:45 | PN ---
Date/Time of Note Date/Time of Note DATE: 02/08/19 TIME: 23:43 Assessment/Plan Lines/Catheters IV Catheter Type (from [facility]): Fariha cath Duran in Place (from [facility]): Yes Assessment/Plan Chief Complaint/Hosp Course 1. Abdominal pain, improved 2. Lactic acidosis, improved 3. Leukocytosis with bandemia: resolved 4. CT findings of thickened proctoscopy: possible colitis versus perforation versus infectious: repeat ct noted without leak; possible recurrence of cancer, colitis: pus noted from anastomosis to descending colon: +c diff -antibiotics per ID -IV fluids -diet -no emergent surgical indicated -will need follow-up with oncology/primary surgeon/GI team 5. Syncope; bradycardia -medical management 6. Sepsis probably secondary to above. Resolved -As above 7. Kidney injury with renal insufficiency -Judicious fluid management -Minimize nephrotoxic agents if possible 8. Stage IV colon cancer status post resection and chemotherapy -Oncology follow-up Thank you Subjective 24 Hr Interval Summary Diarrhea persist and cdiff w/u in process. No fevers, chills, sob, congested cough, cp, palpitations, alcantara, dizziness, nausea, vomiting, dysuria. No abdominal pain. Exam/Review of Systems Vital Signs Vitals Vital Signs Date Temp Pulse Resp B/P (MAP) Pulse Ox O2 O2 Flow FiO2 Time Delivery Rate 02/08/19 98.6 91 18 125/73 98 20:37 (90) 02/05/19 Room Air 04:00 Intake and Output 02/07/19 02/07/19 02/08/19 1515:00 23:00 07:00 IntakeIntake Total 760 ml 700 ml 218 ml OutputOutput Total 1 ml 1 ml BalanceBalance 759 ml 699 ml 218 ml Exam Free Text/Dictation Constitutional: oriented; No distress Psych: nl mood/affect Head: normocephalic, atraumatic Eyes: nl conjunctiva, EOMI, PERRL; No icteric ENMT: nl external ears & nose; No mucosa pink and moist Neck: non-tender; No jvd Respiratory: normal air movement; No congested cough, No labored breathing, No wheezing Cardiovascular: No regular rate and rhythm, No edema Gastrointestinal: rebound or guarding (Normal), nontender Musculoskeletal: No nl gait and stance, No joint tenderness Extremities: normal pulses; No calf tenderness Neurological: nl mental status Skin: No rash or lesions, No diaphoresis Results Result Diagram: 02/08/19 0607 02/08/19 0607 NADIRA LEIVA MD Feb 08, 2019 23:45
[2019-02-09 02:02] VITALS: BP 156/76; PULSE 85; RESP 18
[2019-02-09] MEDS: metroNIDAZOLE 500 MG/NS (PMX) 100 ML IVPB SCH ×3 (05:09→22:28)
[2019-02-09] MEDS: VANCOMYCIN HCL 250 MG/5ML POSYG PO SCH ×3 (05:09→17:22)
[2019-02-09 07:28] VITALS: BP 142/76; PULSE 90; RESP 18
[2019-02-09] MEDS: HYDROCORTISONE 20 MG TAB PO SCH ×3 (09:00→22:28)
[2019-02-09] MEDS: CHOLECALCIFEROL 1,000 UNIT TAB PO SCH (09:21)
[2019-02-09] MEDS: FOLIC ACID 1 MG TAB PO SCH (09:21)
--- NOTE | 2019-02-09 09:21 | PN ---
DATE: 02/09/2019 SUBJECTIVE: The patient is stable, no events overnight. No events noted overnight. OBJECTIVE: VITAL SIGNS: Blood pressure is 142/76, respirations 18, pulse 90, temperature 98.5. HEENT: Head is normocephalic. NECK: Supple. HEART: Regular rate. LUNGS: Show diminished breath sounds at the base. ABDOMEN: Soft, nontender to palpation without rebound or guarding. EXTREMITIES: Negative for clubbing, cyanosis, no edema. DERMATOLOGIC: No rashes. MUSCULOSKELETAL: No joint effusion. NEUROLOGIC: No change in exam. MEDICATIONS: Reviewed. LABORATORY DATA: Reviewed. IMAGING STUDIES: Reviewed. ASSESSMENT AND PLAN: 1. Nonoliguric acute kidney injury. Etiology is secondary to hemodynamics. Renal function is impro john. Continue current treatment plan. 2. Left-sided hydronephrosis secondary to extrinsic compression, likely from metastatic disease. Co ntinue to monitor. 3. Hypokalemia. Continue to monitor and replete. 4. Hypomagnesemia. Continue to monitor and replete. 5. Clostridium difficile. Continue current medical management. Continue vancomycin and Flagyl. 6. Anemia. Continue to monitor hemoglobin and hematocrit levels. 7. Metastatic colon cancer. Continue medical management. 8. Hypertension. Continue current blood pressure regimen. 9. Sepsis. Continue current antibiotic regimen. Follow up with Infectious Disease. Dictated By: IZABEL DENG DO NR/NTS Conf#: [id number] DID#: [id number] CC: ALONZO LEMON MD; RENA TELLO MD; JOEL SCHUSTER MD;*End*
[2019-02-09] MEDS: LISINOPRIL 20 MG TAB PO SCH (09:22)
[2019-02-09] MEDS: ENOXAPARIN 40 MG/0.4 ML SYG SC SCH (09:25)
--- NOTE | 2019-02-09 09:43 | PN ---
Date/Time of Note Date/Time of Note DATE: 02/09/19 TIME: 09:39 Assessment/Plan Lines/Catheters IV Catheter Type (from [facility]): Fariha cath Duran in Place (from [facility]): Yes Assessment/Plan Chief Complaint/Hosp Course 1. Abdominal pain, improved 2. Lactic acidosis, improved 3. Leukocytosis with bandemia: resolved 4. CT findings of thickened proctoscopy: possible colitis versus perforation versus infectious: repeat ct noted without leak; possible recurrence of cancer, colitis: pus noted from anastomosis to descending colon: +c diff -antibiotics per ID -IV fluids -diet -no emergent surgical intervention indicated -will need follow-up with oncology/primary surgeon/GI team 5. Syncope; bradycardia -medical management 6. Sepsis probably secondary to above. Resolved -As above 7. Kidney injury with renal insufficiency -Judicious fluid management -Minimize nephrotoxic agents if possible 8. Stage IV colon cancer status post resection and chemotherapy -Oncology follow-up 9. Electrolyte imbalance -per renal/medical team for lytes optimzation Thank you. Patient seen and examined in collaboration with Dr. Franky Tamayo. Subjective 24 Hr Interval Summary Continues to have loose stools. Pathology noted. No fevers, chills, sob, congested cough, cp, palpitations, alcantara, dizziness, nausea, vomiting, diarrhea, dysuria. Exam/Review of Systems Vital Signs Vitals Vital Signs Date Temp Pulse Resp B/P (MAP) Pulse Ox O2 O2 Flow FiO2 Time Delivery Rate 02/09/19 98.5 90 18 142/76 96 07:28 (98) Intake and Output 02/08/19 02/08/19 02/09/19 1515:00 23:00 07:00 IntakeIntake Total 200 ml 90 ml BalanceBalance 200 ml 90 ml Exam Free Text/Dictation Constitutional: oriented; No distress Psych: nl mood/affect Head: normocephalic, atraumatic Eyes: nl conjunctiva, EOMI, PERRL; No icteric ENMT: nl external ears & nose; No mucosa pink and moist Neck: non-tender; No jvd Respiratory: normal air movement; No congested cough, No labored breathing, No wheezing Cardiovascular: No regular rate and rhythm, No edema Gastrointestinal: rebound or guarding (Normal), nontender Musculoskeletal: No nl gait and stance, No joint tenderness Extremities: normal pulses; No calf tenderness Neurological: nl mental status Skin: No rash or lesions, No diaphoresis Results Result Diagram: 02/08/19 0607 02/08/19 0607 MOJGAN BURKS NP Feb 09, 2019 09:43
[2019-02-09 14:00] VITALS: BP 134/73; PULSE 102; RESP 18
--- NOTE | 2019-02-09 14:11 | CONS ---
Assessment/Plan Assessment/Plan Hospital Course (Demo Recall) 68 yo male with 1. Anemia. 2. Syncopal episode 3. Dehydration, improved. 4. Colon cancer, status post surgery last year. 5. Abnormal finding on the CAT scan with thickening of the anastomotic site and soft tissue mass outside the lumen. -Colonoscopy finding there was no recurrence of tumor patient had colitis. 6. Hypertension. 7. Sepsis. 8. Renal insufficiency. 9. C. difficile colitis 10. Hypokalemia and hypomagnesemia Plan Complete vancomycin course Continue with probiotic Replete electrolytes as needed Encourage PO feedings Pt examined and plan of care discussed with Dr. Blanco Consultation Date/Type/Reason Admit Date/Time Feb 01, 2019 at 17:44 Initial Consult Date 02/01/19 Requesting Provider: VIKY GUZMAN Date/Time of Note DATE: 02/09/19 TIME: 14:10 24 HR Interval Summary Free Text/Dictation no acute changes. Denies abd pain, n/v . Diarrhea x 4. Tolerating PO diet. NO fevers or chills. Exam/Review of Systems Exam Vitals Vital Signs Date Temp Pulse Resp B/P (MAP) Pulse Ox O2 O2 Flow FiO2 Time Delivery Rate 02/09/19 98.5 90 18 142/76 96 07:28 (98) Intake and Output 02/08/19 02/08/19 02/09/19 1515:00 23:00 07:00 IntakeIntake Total 200 ml 90 ml BalanceBalance 200 ml 90 ml Constitutional: alert Psych: no complaints Head: normocephalic Eyes: PERRL Respiratory: normal air movement Gastrointestinal: soft, non-tender Neurological: nl mental status Results Result Diagram: 02/08/19 0607 02/09/19 1045 Results 24hrs Laboratory Tests Test 02/09/19 10:45 Sodium Level 138 Potassium Level 3.7 Chloride Level 103 Carbon Dioxide Level 28 Anion Gap 7 Blood Urea Nitrogen 16 Creatinine 0.70 Est Glomerular Filtrat Rate mL/min > 60 Glucose Level 97 Calcium Level 8.4 Medications Medication Current Medications IV Flush (NS 3 ml) 3 ml PER PROTOCOL IV ; Start 02/01/19 at 18:00 Ondansetron HCl (Zofran Inj) 4 mg Q6H PRN IV NAUSEA/VOMITING Last administered on 02/02/19at 01:25; Admin Dose 4 MG; Start 02/01/19 at 18:00 Acetaminophen (Tylenol Tab) 650 mg Q6H PRN PO .PAIN 1-3 OR TEMP Last administered on 02/08/19 15:29; Admin Dose 650 MG; Start 02/01/19 at 18:00 Cholecalciferol (Vitamin D) 5,000 unit DAILY PO Last administered on 02/09/19 09:21; Admin Dose 5,000 UNIT; Start 02/02/19 at 09:00 Folic Acid (Folic Acid) 1 mg DAILY PO Last administered on 02/09/19 09:21; Admin Dose 1 MG; Start 02/02/19 at 09:00 Fentanyl (Sublimaze) 15 mcg Q3H PRN IV SEVERE PAIN LEVEL 7-10; Start 02/02/19 at 09:00 Vancomycin HCl (Vancomycin Oral Syringe) 125 mg Q6 PO Last administered on 02/09/19 12:06; Admin Dose 125 MG; Start 02/03/19 at 16:00 Metronidazole 100 ml @ 100 mls/hr Q8 IVPB Last administered on 02/09/19 05:09; Admin Dose 100 MLS/HR; Start 02/03/19 at 15:00 Enoxaparin Sodium (Lovenox) 40 mg DAILY SC Last administered on 02/09/19 09:25; Admin Dose 40 MG; Start 02/06/19 at 09:00 Hydrocortisone (Cortef) 20 mg BID PO Last administered on 02/08/19 21:22; Admin Dose 20 MG; Start 02/07/19 at 21:00 Lisinopril (Zestril) 20 mg DAILY PO Last administered on 02/09/19 09:22; Admin Dose 20 MG; Start 02/08/19 at 09:00 VANESSA CARRERA Feb 09, 2019 14:11
--- NOTE | 2019-02-09 14:14 | PDOCDIS ---
Discharge Instructions DIAGNOSIS Discharge Diagnosis RG Syncope Hypotension Hypokalemia CONDITION [id number] Patient Condition: [id number] Stable FOLLOW UP/APPOINTMENTS Follow-up Plan Make an appointment to see your doctor in the next 1-2 weeks Return to the emergency room if you have any concerning symptoms AOLNZO LEMON MD Feb 09, 2019 14:14
--- NOTE | 2019-02-09 14:18 | DS ---
Date/Time of Note Date/Time of Note DATE: 02/09/19 TIME: 14:15 Discharge Summary Admission/Discharge Info Admit Date/Time Feb 01, 2019 at 17:44 Discharge Date/Time Discharge Diagnosis RG Syncope Hypotension Hypokalemia Patient Condition: Stable Hospital Course 68 yo female with h/o colon cancer presented with syncope. Found to have RG and hypokalemia and hyponatermia She was treated with IV fluids and renal function resolved to normal. She had severe hypokalemia which eventually resolved She was treated with stress dose steroids (given home hydrocortisone use) for a few days, then returned to her home dose of hydrocortisone Her CT scan of the belly suggested mass at anastatomic site. She underwent colonoscopy which was negative for a mass She then developed C Diff and completed a 1 week course of flagyl and vancomycin She was seen by PT/OT who recommended home discharge with home PT services. Hypokelamia: - Replelte as required Syncope secondary to dehydration from chemotherapy -Continue IV hydration -CT and MRI with no significant findings -Echo with preserved EF Hypotension secondary to dehydration -Patient is alert and oriented x4, no change from baseline -Hold patient's blood pressure medications -Continue IV fluids Severe sepsis secondary to C. difficile -C. difficile is positive -Patient started on vancomycin p.o. and Flagyl IV by ID 4. Intra-abdominal pain secondary to C. difficile colitis -CT abdomen on scan does show colitis as well as possible recurrence of colon cancer -C. difficile is positive -Continue treatment, patient still with diarrhea 5. Hyponatremia -Resolved with fluids 6. Acute kidney injury versus chronic kidney disease - Resolved with fluids 7. Chronic hydrocortisone use -Unknown reason, likely causing an element of kaliuresis. Not clear to me why the dose was increased, will go back down to home dose of 20 mg BID and try to toncatct her oncologist on Friday Dr Jaramillo at [facility] 8. Stage IV colon cancer -Patient is status post hemicolectomy with reanastomosis last year -Status post 10 rounds of chemotherapy, last chemotherapy done approximately 2 weeks ago -Persistent nausea is causing patient's decreased p.o. intake -CT abdomen suggested possible recurrence of colon cancer in the descending colon -GI consultation appreciated, colonoscopy done and shows no evidence of tumor, colitis noted 9. Decreased p.o. intake, failure to thrive secondary to chemotherapy -Continue clears -Zofran as needed -Replace electrolytes 10. History of hypertension -Hold patient BP meds for now secondary to hypotension Prophylaxis: Lovenox DC planning: Not stable for DC as patient continues to have electrolyte deficiency, DC once hypokalemia resolved Home Meds Reported Medications Gabapentin* (Gabapentin*) 400 Mg Capsule, 400 MG PO BID, #90 CAP 02/01/19 Folic Acid* (Folic Acid*) 1 Mg Tablet, 1 MG PO DAILY, TAB 02/01/19 Cholecalciferol (Vitamin D3) 5,000 Unit Tablet, 5000 UNIT PO DAILY, TAB 02/01/19 Ondansetron Hcl* (Zofran*) 4 Mg Tablet, 4 MG PO Q8H PRN for NAUSEA AND OR VOMITING, TAB 02/01/19 Hydrocortisone* (Cortef*) 20 Mg Tablet, 20 MG PO BID, #60 TAB 02/01/19 Lisinopril* (Lisinopril*) 5 Mg Tablet, 5 MG PO DAILY, #30 TAB 02/01/19 Follow-up Plan Make an appointment to see your doctor in the next 1-2 weeks Return to the emergency room if you have any concerning symptoms Primary Care Provider Not On Staff Doctor Pending Labs Laboratory Tests Test 02/09/19 10:45 Sodium Level 138 mmol/L (135-144) Potassium Level 3.7 mmol/L (3.5-5.1) Chloride Level 103 mmol/L (97-110) Carbon Dioxide Level 28 mmol/L (21-31) Anion Gap 7 (5-13) Blood Urea Nitrogen 16 mg/dl (7-20) Creatinine 0.70 mg/dl (0.44-1.00) Est Glomerular Filtrat Rate mL/min > 60 mL/min (>60) Glucose Level 97 mg/dl (70-220) Calcium Level 8.4 mg/dl (8.4-10.2) ALONZO LEMON MD Feb 09, 2019 14:18
--- NOTE | 2019-02-09 15:34 | CONS ---
Assessment/Plan Assessment/Plan Hospital Course (Demo Recall) No events over night diarrhea improved Antimicrobials: Oral Vanco and IV Flagyl Microbiology: Blood cultures remain negative stool positive came back positive Chest x-ray on admission revealed mild left basilar atelectasis the lungs are otherwise clear Physical examination: This is a fragile chronically ill-appearing elderly woman who is awake in no distress. Head atraumatic normocephalic neck is supple chest rise symmetrical breath sounds diminished bases heart S1-S2 abdomen soft bowel sounds present extremities without cyanosis Assessment: 1. C. difficile colitis 2. Status post respiratory failure 3. Metastatic colon cancer status post hemicolectomy 4. History of hypertension Plan: Remains, stable ok dc on oral Vanco for 7-10 more days Consultation Date/Type/Reason Admit Date/Time Feb 01, 2019 at 17:44 Initial Consult Date 02/01/19 Type of Consult id Requesting Provider: VIKY GUZMAN Date/Time of Note DATE: 02/09/19 TIME: 15:33 Exam/Review of Systems Exam Vitals Vital Signs Date Temp Pulse Resp B/P (MAP) Pulse Ox O2 O2 Flow FiO2 Time Delivery Rate 02/09/19 98.0 102 18 134/73 98 14:00 (93) Intake and Output 02/08/19 02/08/19 02/09/19 1515:00 23:00 07:00 IntakeIntake Total 200 ml 90 ml BalanceBalance 200 ml 90 ml Results Result Diagram: 02/08/19 0607 02/09/19 1045 Results 24hrs Laboratory Tests Test 02/09/19 10:45 Sodium Level 138 Potassium Level 3.7 Chloride Level 103 Carbon Dioxide Level 28 Anion Gap 7 Blood Urea Nitrogen 16 Creatinine 0.70 Est Glomerular Filtrat Rate mL/min > 60 Glucose Level 97 Calcium Level 8.4 Medications Medication Current Medications IV Flush (NS 3 ml) 3 ml PER PROTOCOL IV ; Start 02/01/19 at 18:00 Ondansetron HCl (Zofran Inj) 4 mg Q6H PRN IV NAUSEA/VOMITING Last administered on 02/02/19at 01:25; Admin Dose 4 MG; Start 02/01/19 at 18:00 Acetaminophen (Tylenol Tab) 650 mg Q6H PRN PO .PAIN 1-3 OR TEMP Last administered on 02/08/19at 15:29; Admin Dose 650 MG; Start 02/01/19 at 18:00 Cholecalciferol (Vitamin D) 5,000 unit DAILY PO Last administered on 02/09/19 09:21; Admin Dose 5,000 UNIT; Start 02/02/19 at 09:00 Folic Acid (Folic Acid) 1 mg DAILY PO Last administered on 02/09/19 09:21; Admin Dose 1 MG; Start 02/02/19 at 09:00 Fentanyl (Sublimaze) 15 mcg Q3H PRN IV SEVERE PAIN LEVEL 7-10; Start 02/02/19 at 09:00 Vancomycin HCl (Vancomycin Oral Syringe) 125 mg Q6 PO Last administered on 02/09/19 12:06; Admin Dose 125 MG; Start 02/03/19 at 16:00 Metronidazole 100 ml @ 100 mls/hr Q8 IVPB Last administered on 02/09/19 05:09; Admin Dose 100 MLS/HR; Start 02/03/19 at 15:00 Enoxaparin Sodium (Lovenox) 40 mg DAILY SC Last administered on 02/09/19 09:25; Admin Dose 40 MG; Start 02/06/19 at 09:00 Hydrocortisone (Cortef) 20 mg BID PO Last administered on 02/08/19 21:22; Admin Dose 20 MG; Start 02/07/19 at 21:00 Lisinopril (Zestril) 20 mg DAILY PO Last administered on 02/09/19 09:22; Admin Dose 20 MG; Start 02/08/19 at 09:00 OBED MASTERS NP Feb 09, 2019 15:34
[2019-02-09 20:00] VITALS: BP 128/70; PULSE 100; RESP 19
[2019-02-10] MEDS: VANCOMYCIN HCL 250 MG/5ML POSYG PO SCH ×4 (00:19→17:26)
[2019-02-10 02:00] VITALS: BP 123/73; PULSE 104; RESP 20
[2019-02-10] MEDS: metroNIDAZOLE 500 MG/NS (PMX) 100 ML IVPB SCH ×2 (06:12→13:25)
[2019-02-10 07:34] VITALS: BP 136/78; PULSE 89; RESP 18
--- NOTE | 2019-02-10 08:44 | PN ---
DATE: 02/10/2019 SUBJECTIVE: The patient remains stable. No events overnight. OBJECTIVE: VITAL SIGNS: Blood pressure is 136/78, pulse 89, respirations 18, temperature 97.9. HEENT: Head is normocephalic. NECK: Supple. HEART: Regular rate. LUNGS: Show diminished breath sounds at the base. ABDOMEN: Soft, nontender to palpation without rebound or guarding. EXTREMITIES: Negative for clubbing, cyanosis, no edema. DERMATOLOGIC: No rashes. MUSCULOSKELETAL: No joint effusion. NEUROLOGIC: No change in exam. MEDICATIONS: Reviewed. LABORATORY DATA: Reviewed. IMAGING STUDIES: Reviewed. ASSESSMENT AND PLAN: 1. Nonoliguric acute kidney injury. Etiology is secondary to hemodynamics. Renal function is impro john. 2. Left-sided hydronephrosis secondary to extrinsic compression, stable. Continue to monitor. 3. Hyperkalemia, resolved. 4. Hypomagnesemia, resolved. 5. Clostridium difficile. Continue medical management. 6. Anemia. Monitor hemoglobin and hematocrit levels. 7. Metastatic colon cancer. Continue medical management. 8. Hypertension. Continue current blood pressure regimen. 9. Sepsis. The patient is completing antibiotic course. We will follow the patient as needed. Dictated By: IZABEL DENG DO NR/NTS Conf#: [id number] DID#: [id number] CC: RENA TELLO MD; ALONZO LEMON MD; JOEL SCHUSTER MD;*EndCC*
[2019-02-10] MEDS: HYDROCORTISONE 20 MG TAB PO SCH ×2 (09:00→21:00)
[2019-02-10] MEDS: FOLIC ACID 1 MG TAB PO SCH (09:25)
[2019-02-10] MEDS: CHOLECALCIFEROL 1,000 UNIT TAB PO SCH (09:25)
[2019-02-10] MEDS: LISINOPRIL 20 MG TAB PO SCH (09:26)
[2019-02-10] MEDS: ENOXAPARIN 40 MG/0.4 ML SYG SC SCH (09:28)
--- NOTE | 2019-02-10 12:21 | PN ---
Date/Time of Note Date/Time of Note DATE: 02/10/19 TIME: 12:18 Assessment/Plan Lines/Catheters IV Catheter Type (from [facility]): PORT A CATH Duran in Place (from [facility]): Yes Assessment/Plan Chief Complaint/Hosp Course 1. Abdominal pain, improved 2. Lactic acidosis, improved 3. Leukocytosis with bandemia: resolved 4. CT findings of thickened proctoscopy: possible colitis versus perforation versus infectious: repeat ct noted without leak; possible recurrence of cancer, colitis: pus noted from anastomosis to descending colon: +c diff -antibiotics per ID -IV fluids -diet -no emergent surgical intervention indicated -will need follow-up with oncology/primary surgeon/GI team 5. Syncope; bradycardia -medical management 6. Sepsis probably secondary to above. Resolved -As above 7. Kidney injury with renal insufficiency -Judicious fluid management -Minimize nephrotoxic agents if possible 8. Stage IV colon cancer status post resection and chemotherapy -Oncology follow-up 9. Electrolyte imbalance -per renal/medical team for lytes optimzation Thank you. Patient seen and examined in collaboration with Dr. Franky Tamayo. Subjective 24 Hr Interval Summary No acute events. Feels well. Pending discharge placement. No fevers, chills, sob, congested cough, cp, palpitations, alcantara, dizziness, nausea, vomiting, diarrhea, dysuria. Exam/Review of Systems Vital Signs Vitals Vital Signs Date Temp Pulse Resp B/P (MAP) Pulse Ox O2 O2 Flow FiO2 Time Delivery Rate 02/10/19 97.9 89 18 136/78 97 Room Air 07:34 (97) Intake and Output 02/09/19 02/09/19 02/10/19 1515:00 23:00 07:00 IntakeIntake Total 640 ml 220 ml BalanceBalance 640 ml 220 ml Exam Free Text/Dictation Constitutional: oriented; No distress Psych: nl mood/affect Head: normocephalic, atraumatic Eyes: nl conjunctiva, EOMI, PERRL; No icteric ENMT: nl external ears & nose; No mucosa pink and moist Neck: non-tender; No jvd Respiratory: normal air movement; No congested cough, No labored breathing, No wheezing Cardiovascular: No regular rate and rhythm, No edema Gastrointestinal: rebound or guarding (Normal), nontender Musculoskeletal: No nl gait and stance, No joint tenderness Extremities: normal pulses; No calf tenderness Neurological: nl mental status Skin: No rash or lesions, No diaphoresis Results Result Diagram: 02/08/19 0607 02/10/19 0711 MOJGAN BURKS NP Feb 10, 2019 12:21
[2019-02-10 13:53] VITALS: BP 113/60; PULSE 101; RESP 18
--- NOTE | 2019-02-10 14:47 | PN ---
Date/Time of Note Date/Time of Note DATE: 02/10/19 TIME: 14:46 Assessment/Plan VTE Prophylaxis Risk score (from Nsg)>0 risk: 10 SCD applied (from [facility]): Yes Pharmacological prophylaxis: heparin Lines/Catheters IV Catheter Type (from [facility]): PORT A CATH Urinary Cath still in place: Yes Reason Cath still needed: urinary retention Assessment/Plan Hospital Course 68 yo female with h/o colon cancer presented with syncope. Found to have RG and hypokalemia and hyponatermia She was treated with IV fluids and renal function resolved to normal. She had severe hypokalemia which eventually resolved She was treated with stress dose steroids (given home hydrocortisone use) for a few days, then returned to her home dose of hydrocortisone Her CT scan of the belly suggested mass at anastatomic site. She underwent colonoscopy which was negative for a mass She then developed C Diff and completed a 1 week course of flagyl and vancomycin She was seen by PT/OT who recommended home discharge with home PT services. Hypokelamia: - Resolved Syncope secondary to dehydration from chemotherapy - This was orthostatic syncope in setting of hypovolemia Severe sepsis secondary to C. difficile -C. difficile is positive -Patient started on vancomycin p.o. and Flagyl IV by ID Chronic hydrocortisone use - Continue home dose of 20 BID Stage IV colon cancer -Patient is status post hemicolectomy with reanastomosis last year -Status post 10 rounds of chemotherapy, last chemotherapy done approximately 2 weeks ago -Persistent nausea is causing patient's decreased p.o. intake -CT abdomen suggested possible recurrence of colon cancer in the descending colon -GI consultation appreciated, colonoscopy done and shows no evidence of tumor, colitis noted Prophylaxis: Lovenox DC planning: Dc home on Friday Result Diagram: 02/08/19 0607 02/10/19 0711 Results 24hrs Laboratory Tests Test 02/10/19 07:11 Sodium Level 138 Potassium Level 3.9 Chloride Level 105 Carbon Dioxide Level 28 Anion Gap 5 Blood Urea Nitrogen 13 Creatinine 0.59 Est Glomerular Filtrat Rate mL/min > 60 Glucose Level 78 Calcium Level 8.6 Phosphorus Level 3.9 Magnesium Level 1.9 Subjective 24 Hr Interval Summary Free Text/Dictation Still wtih mild diarreha Working wtih PT Family can't accept her back home until Friday Exam/Review of Systems Exam Vitals Vital Signs Date Temp Pulse Resp B/P (MAP) Pulse Ox O2 O2 Flow FiO2 Time Delivery Rate 02/10/19 98.2 101 18 113/60 94 Room Air 13:53 (77) Intake and Output 02/09/19 02/09/19 02/10/19 1414:59 22:59 06:59 IntakeIntake Total 640 ml 120 ml 100 ml BalanceBalance 640 ml 120 ml 100 ml Results Results 24hrs Laboratory Tests Test 02/10/19 07:11 Sodium Level 138 Potassium Level 3.9 Chloride Level 105 Carbon Dioxide Level 28 Anion Gap 5 Blood Urea Nitrogen 13 Creatinine 0.59 Est Glomerular Filtrat Rate mL/min > 60 Glucose Level 78 Calcium Level 8.6 Phosphorus Level 3.9 Magnesium Level 1.9 Medications Medication Current Medications IV Flush (NS 3 ml) 3 ml PER PROTOCOL IV ; Start 02/01/19 at 18:00 Ondansetron HCl (Zofran Inj) 4 mg Q6H PRN IV NAUSEA/VOMITING Last administered on 02/02/19 01:25; Admin Dose 4 MG; Start 02/01/19 at 18:00 Acetaminophen (Tylenol Tab) 650 mg Q6H PRN PO .PAIN 1-3 OR TEMP Last administered on 02/08/19 15:29; Admin Dose 650 MG; Start 02/01/19 at 18:00 Cholecalciferol (Vitamin D) 5,000 unit DAILY PO Last administered on 02/10/19 09:25; Admin Dose 5,000 UNIT; Start 02/02/19 at 09:00 Folic Acid (Folic Acid) 1 mg DAILY PO Last administered on 02/10/19 09:25; Admin Dose 1 MG; Start 02/02/19 at 09:00 Fentanyl (Sublimaze) 15 mcg Q3H PRN IV SEVERE PAIN LEVEL 7-10; Start 02/02/19 at 09:00 Vancomycin HCl (Vancomycin Oral Syringe) 125 mg Q6 PO Last administered on 02/10/19at 12:51; Admin Dose 125 MG; Start 02/03/19 at 16:00 Metronidazole 100 ml @ 100 mls/hr Q8 IVPB Last administered on 02/10/19 13:25 ; Admin Dose 100 MLS/HR; Start 02/03/19 at 15:00 Enoxaparin Sodium (Lovenox) 40 mg DAILY SC Last administered on 02/10/19at 09:28; Admin Dose 40 MG; Start 02/06/19 at 09:00 Hydrocortisone (Cortef) 20 mg BID PO Last administered on 02/09/19 22:28; Admin Dose 20 MG; Start 02/07/19 at 21:00 Lisinopril (Zestril) 20 mg DAILY PO Last administered on 02/10/19 09:26; Admin Dose 20 MG; Start 02/08/19 at 09:00 ALONZO LEMON MD Feb 10, 2019 14:47
--- NOTE | 2019-02-10 14:58 | CONS ---
Assessment/Plan Assessment/Plan Hospital Course (Demo Recall) Alert, feels good, diarrhea resolving Antimicrobials: Oral Vanco and IV Flagyl Microbiology: Blood cultures remain negative stool positive came back positive Chest x-ray on admission revealed mild left basilar atelectasis the lungs are otherwise clear Physical examination: This is a fragile chronically ill-appearing elderly woman who is awake in no distress. Head atraumatic normocephalic neck is supple chest rise symmetrical breath sounds diminished bases heart S1-S2 abdomen soft bowel sounds present extremities without cyanosis Assessment: 1. C. difficile colitis 2. Status post respiratory failure 3. Metastatic colon cancer status post hemicolectomy 4. History of hypertension Plan: Remains, stable ok dc on oral Vanco for 7-10 more days, DC Flagyl Consultation Date/Type/Reason Admit Date/Time Feb 01, 2019 at 17:44 Initial Consult Date 02/01/19 Type of Consult id Requesting Provider: VIKY GUZMAN Date/Time of Note DATE: 02/10/19 TIME: 14:57 Exam/Review of Systems Exam Vitals Vital Signs Date Temp Pulse Resp B/P (MAP) Pulse Ox O2 O2 Flow FiO2 Time Delivery Rate 02/10/19 98.2 101 18 113/60 94 Room Air 13:53 (77) Intake and Output 02/09/19 02/09/19 02/10/19 1515:00 23:00 07:00 IntakeIntake Total 640 ml 220 ml BalanceBalance 640 ml 220 ml Results Result Diagram: 02/08/19 0607 02/10/19 0711 Results 24hrs Laboratory Tests Test 02/10/19 07:11 Sodium Level 138 Potassium Level 3.9 Chloride Level 105 Carbon Dioxide Level 28 Anion Gap 5 Blood Urea Nitrogen 13 Creatinine 0.59 Est Glomerular Filtrat Rate mL/min > 60 Glucose Level 78 Calcium Level 8.6 Phosphorus Level 3.9 Magnesium Level 1.9 Medications Medication Current Medications IV Flush (NS 3 ml) 3 ml PER PROTOCOL IV ; Start 02/01/19 at 18:00 Ondansetron HCl (Zofran Inj) 4 mg Q6H PRN IV NAUSEA/VOMITING Last administered on 02/02/19at 01:25; Admin Dose 4 MG; Start 02/01/19 at 18:00 Acetaminophen (Tylenol Tab) 650 mg Q6H PRN PO .PAIN 1-3 OR TEMP Last administered on 02/08/19 15:29; Admin Dose 650 MG; Start 02/01/19 at 18:00 Cholecalciferol (Vitamin D) 5,000 unit DAILY PO Last administered on 02/10/19 09:25; Admin Dose 5,000 UNIT; Start 02/02/19 at 09:00 Folic Acid (Folic Acid) 1 mg DAILY PO Last administered on 02/10/19 09:25; Admin Dose 1 MG; Start 02/02/19 at 09:00 Fentanyl (Sublimaze) 15 mcg Q3H PRN IV SEVERE PAIN LEVEL 7-10; Start 02/02/19 at 09:00 Vancomycin HCl (Vancomycin Oral Syringe) 125 mg Q6 PO Last administered on 02/10/19 12:51; Admin Dose 125 MG; Start 02/03/19 at 16:00 Metronidazole 100 ml @ 100 mls/hr Q8 IVPB Last administered on 02/10/19 13:25; Admin Dose 100 MLS/HR; Start 02/03/19 at 15:00 Enoxaparin Sodium (Lovenox) 40 mg DAILY SC Last administered on 02/10/19 09:28; Admin Dose 40 MG; Start 02/06/19 at 09:00 Hydrocortisone (Cortef) 20 mg BID PO Last administered on 02/09/19 22:28; Admin Dose 20 MG; Start 02/07/19 at 21:00 Lisinopril (Zestril) 20 mg DAILY PO Last administered on 02/10/19 09:26; Admin Dose 20 MG; Start 02/08/19 at 09:00 OBED MASTERS NP Feb 10, 2019 14:57
--- NOTE | 2019-02-10 19:45 | CONS ---
Assessment/Plan Assessment/Plan Assessment/Plan (Daily) Assessment/Plan Hospital Course (Demo Recall) 68 yo male with 1. Anemia. 2. Syncopal episode 3. Dehydration, improved. 4. Colon cancer, status post surgery last year. 5. Abnormal finding on the CAT scan with thickening of the anastomotic site and soft tissue mass outside the lumen. -Colonoscopy finding there was no recurrence of tumor patient had colitis. 6. Hypertension. 7. Sepsis. 8. Renal insufficiency. 9. C. difficile colitis 10. Hypokalemia and hypomagnesemia Plan Complete vancomycin course Continue with probiotic Replete electrolytes as needed Encourage PO feedings,or Megace Consultation Date/Type/Reason Admit Date/Time Feb 01, 2019 at 17:44 Initial Consult Date 02/01/19 Requesting Provider: VIKY GUZMAN Date/Time of Note DATE: 02/10/19 TIME: 19:44 24 HR Interval Summary Constitutional: improved Exam/Review of Systems Exam Vitals Vital Signs Date Temp Pulse Resp B/P (MAP) Pulse Ox O2 O2 Flow FiO2 Time Delivery Rate 02/10/19 98.2 101 18 113/60 94 Room Air 13:53 (77) Intake and Output 02/09/19 02/09/19 02/10/19 1515:00 23:00 07:00 IntakeIntake Total 640 ml 220 ml BalanceBalance 640 ml 220 ml Constitutional: alert, oriented, well developed Psych: no complaints, nl mood/affect Head: normocephalic, atraumatic Eyes: nl conjunctiva, EOMI, nl lids, nl sclera, PERRL ENMT: nl external ears & nose, nl lips & teeth, nl nasal mucosa & septum Neck: supple, non-tender Respiratory: clear to auscultation, normal air movement Cardiovascular: regular rate and rhythm, nl pulses Gastrointestinal: soft, nl liver, spleen, non-tender Musculoskeletal: nl extremities to inspection, nl gait and stance Extremities: normal pulses Neurological: FRAME WIRER II-XII intact, nl mental status, nl speech, nl strength Skin: nl turgor; No rash or lesions Lymph: nl lymph nodes Results Result Diagram: 02/08/19 0607 02/10/19 0711 Results 24hrs Laboratory Tests Test 02/10/19 07:11 Sodium Level 138 Potassium Level 3.9 Chloride Level 105 Carbon Dioxide Level 28 Anion Gap 5 Blood Urea Nitrogen 13 Creatinine 0.59 Est Glomerular Filtrat Rate mL/min > 60 Glucose Level 78 Calcium Level 8.6 Phosphorus Level 3.9 Magnesium Level 1.9 Medications Medication Current Medications IV Flush (NS 3 ml) 3 ml PER PROTOCOL IV ; Start 02/01/19 at 18:00 Ondansetron HCl (Zofran Inj) 4 mg Q6H PRN IV NAUSEA/VOMITING Last administered on 02/02/19 01:25; Admin Dose 4 MG; Start 02/01/19 at 18:00 Acetaminophen (Tylenol Tab) 650 mg Q6H PRN PO .PAIN 1-3 OR TEMP Last administered on 02/08/19 15:29; Admin Dose 650 MG; Start 02/01/19 at 18:00 Cholecalciferol (Vitamin D) 5,000 unit DAILY PO Last administered on 02/10/19 09:25; Admin Dose 5,000 UNIT; Start 02/02/19 at 09:00 Folic Acid (Folic Acid) 1 mg DAILY PO Last administered on 02/10/19 09:25; Admin Dose 1 MG; Start 02/02/19 at 09:00 Fentanyl (Sublimaze) 15 mcg Q3H PRN IV SEVERE PAIN LEVEL 7-10; Start 02/02/19 at 09:00 Vancomycin HCl (Vancomycin Oral Syringe) 125 mg Q6 PO Last administered on 02/10/19 17:26; Admin Dose 125 MG; Start 02/03/19 at 16:00 Enoxaparin Sodium (Lovenox) 40 mg DAILY SC Last administered on 02/10/19 09:28; Admin Dose 40 MG; Start 02/06/19 at 09:00 Hydrocortisone (Cortef) 20 mg BID PO Last administered on 02/09/19 22:28; Admin Dose 20 MG; Start 02/07/19 at 21:00 Lisinopril (Zestril) 20 mg DAILY PO Last administered on 02/10/19 09:26; Admin Dose 20 MG; Start 02/08/19 at 09:00 JOEL SCHUSTER MD Feb 10, 2019 19:45
[2019-02-10 20:00] VITALS: BP 131/66; PULSE 101; RESP 19
[2019-02-11] MEDS: VANCOMYCIN HCL 250 MG/5ML POSYG PO SCH ×4 (00:22→17:05)
[2019-02-11 02:00] VITALS: BP 128/61; PULSE 98; RESP 17
[2019-02-11 07:50] VITALS: BP 123/70; PULSE 96; RESP 18
[2019-02-11] MEDS: FOLIC ACID 1 MG TAB PO SCH (08:31)
[2019-02-11] MEDS: LISINOPRIL 20 MG TAB PO SCH (08:32)
[2019-02-11] MEDS: HYDROCORTISONE 20 MG TAB PO SCH ×2 (08:33→21:00)
[2019-02-11] MEDS: CHOLECALCIFEROL 1,000 UNIT TAB PO SCH (08:33)
[2019-02-11] MEDS: ENOXAPARIN 40 MG/0.4 ML SYG SC SCH (08:36)
--- NOTE | 2019-02-11 11:35 | PN ---
Date/Time of Note Date/Time of Note DATE: 02/11/19 TIME: 11:34 Assessment/Plan Lines/Catheters IV Catheter Type (from [facility]): gene cath Duran in Place (from [facility]): No (DC'd 02/06) Assessment/Plan Chief Complaint/Hosp Course 1. Abdominal pain, improved 2. Lactic acidosis, improved 3. Leukocytosis with bandemia: resolved 4. CT findings of thickened proctoscopy: possible colitis versus perforation versus infectious: repeat ct noted without leak; possible recurrence of cancer, colitis: pus noted from anastomosis to descending colon: +c diff -antibiotics per ID -IV fluids -diet -no emergent surgical intervention indicated -will need follow-up with oncology/primary surgeon/GI team 5. Syncope; bradycardia -medical management 6. Sepsis probably secondary to above. Resolved -As above 7. Kidney injury with renal insufficiency -Judicious fluid management -Minimize nephrotoxic agents if possible 8. Stage IV colon cancer status post resection and chemotherapy -Oncology follow-up 9. Electrolyte imbalance -per renal/medical team for lytes optimzation Thank you. Patient seen and examined in collaboration with Dr. Franky Tamayo. Exam/Review of Systems Vital Signs Vitals Vital Signs Date Temp Pulse Resp B/P (MAP) Pulse Ox O2 O2 Flow FiO2 Time Delivery Rate 02/11/19 97.9 96 18 123/70 97 Room Air 07:50 (87) Intake and Output 02/10/19 02/10/19 02/11/19 1515:00 23:00 07:00 IntakeIntake Total 750 ml 200 ml BalanceBalance 750 ml 200 ml Results Result Diagram: 02/08/19 0607 02/10/19 0711 MOJGAN BURKS NP Feb 11, 2019 11:35
--- NOTE | 2019-02-11 11:38 | PN ---
Date/Time of Note Date/Time of Note DATE: 02/11/19 TIME: 11:36 Assessment/Plan Lines/Catheters IV Catheter Type (from [facility]): gene cath Duran in Place (from [facility]): No (DC'd 02/06) Assessment/Plan Chief Complaint/Hosp Course 1. Abdominal pain, resolved 2. Lactic acidosis, resolved 3. Leukocytosis with bandemia: resolved 4. CT findings of thickened proctoscopy: possible colitis versus perforation versus infectious: repeat ct noted without leak; possible recurrence of cancer, colitis: pus noted from anastomosis to descending colon: +c diff -diet -no emergent surgical intervention indicated -will need follow-up with oncology/primary surgeon/GI team 5. Syncope; bradycardia -medical management 6. Sepsis probably secondary to above. Resolved -As above 7. Kidney injury with renal insufficiency resolved -Judicious fluid management -Minimize nephrotoxic agents if possible 8. Stage IV colon cancer status post resection and chemotherapy -Oncology follow-up Thank you. Patient seen and examined in collaboration with Dr. Franky Tamayo. Subjective 24 Hr Interval Summary Feels well. No acute events. No fevers, chills, sob, congested cough, cp, palpitations, alcantara, dizziness, nausea, vomiting, diarrhea, dysuria. Exam/Review of Systems Vital Signs Vitals Vital Signs Date Temp Pulse Resp B/P (MAP) Pulse Ox O2 O2 Flow FiO2 Time Delivery Rate 02/11/19 97.9 96 18 123/70 97 Room Air 07:50 (87) Intake and Output 02/10/19 02/10/19 02/11/19 1515:00 23:00 07:00 IntakeIntake Total 750 ml 200 ml BalanceBalance 750 ml 200 ml Exam Free Text/Dictation Constitutional: oriented; No distress Psych: nl mood/affect Head: normocephalic, atraumatic Eyes: nl conjunctiva, EOMI, PERRL; No icteric ENMT: nl external ears & nose; No mucosa pink and moist Neck: non-tender; No jvd Respiratory: normal air movement; No congested cough, No labored breathing, No wheezing Cardiovascular: No regular rate and rhythm, No edema Gastrointestinal: rebound or guarding (Normal), nontender Musculoskeletal: No nl gait and stance, No joint tenderness Extremities: normal pulses; No calf tenderness Neurological: nl mental status Skin: No rash or lesions, No diaphoresis Results Result Diagram: 02/08/19 0607 02/10/19 0711 MOJGAN BURKS NP Feb 11, 2019 11:38
[2019-02-11 14:28] VITALS: BP 97/56; PULSE 97; RESP 18
--- NOTE | 2019-02-11 14:41 | PN ---
Date/Time of Note Date/Time of Note DATE: 02/11/19 TIME: 14:40 Assessment/Plan VTE Prophylaxis Risk score (from Ns)>0 risk: 10 SCD applied (from Ns): Yes Pharmacological prophylaxis: heparin Lines/Catheters IV Catheter Type (from [facility]): gene cath Urinary Cath still in place: No (DC'd 02/06) Assessment/Plan Hospital Course 68 yo female with h/o colon cancer presented with syncope. Found to have RG and hypokalemia and hyponatermia She was treated with IV fluids and renal function resolved to normal. She had severe hypokalemia which eventually resolved She was treated with stress dose steroids (given home hydrocortisone use) for a few days, then returned to her home dose of hydrocortisone Her CT scan of the belly suggested mass at anastatomic site. She underwent colonoscopy which was negative for a mass She then developed C Diff and completed a 1 week course of flagyl and vancomycin She was seen by PT/OT who recommended home discharge with home PT services. Hypokelamia: - Resolved Syncope secondary to dehydration from chemotherapy - This was orthostatic syncope in setting of hypovolemia Severe sepsis secondary to C. difficile -C. difficile is positive -Patient started on vancomycin p.o. and Flagyl IV by ID Chronic hydrocortisone use - Continue home dose of 20 BID Stage IV colon cancer -Patient is status post hemicolectomy with reanastomosis last year -Status post 10 rounds of chemotherapy, last chemotherapy done approximately 2 weeks ago -Persistent nausea is causing patient's decreased p.o. intake -CT abdomen suggested possible recurrence of colon cancer in the descending colon -GI consultation appreciated, colonoscopy done and shows no evidence of tumor, colitis noted Prophylaxis: Lovenox DC planning: Dc home on Friday Result Diagram: 02/08/19 0607 02/10/19 0711 Subjective 24 Hr Interval Summary Free Text/Dictation Still having diarrhea Exam/Review of Systems Exam Vitals Vital Signs Date Temp Pulse Resp B/P (MAP) Pulse Ox O2 O2 Flow FiO2 Time Delivery Rate 02/11/19 97.9 97 18 97/56 (70) 97 Room Air 14:28 Intake and Output 02/10/19 02/10/19 02/11/19 1515:00 23:00 07:00 IntakeIntake Total 750 ml 200 ml BalanceBalance 750 ml 200 ml Constitutional: alert, oriented, well developed Psych: no complaints, nl mood/affect Head: normocephalic, atraumatic Eyes: nl conjunctiva, EOMI, nl lids, nl sclera, PERRL ENMT: nl external ears & nose, nl lips & teeth, nl nasal mucosa & septum Neck: supple, non-tender Respiratory: clear to auscultation, normal air movement Cardiovascular: regular rate and rhythm, nl pulses Gastrointestinal: soft, nl liver, spleen, non-tender Musculoskeletal: nl extremities to inspection, nl gait and stance Extremities: normal pulses Neurological: BOARDING SPECIALIST II-XII intact, nl mental status, nl speech, nl strength Skin: nl turgor; No rash or lesions Lymph: nl lymph nodes Medications Medication Current Medications IV Flush (NS 3 ml) 3 ml PER PROTOCOL IV ; Start 02/01/19 at 18:00 Ondansetron HCl (Zofran Inj) 4 mg Q6H PRN IV NAUSEA/VOMITING Last administered on 02/02/19 01:25; Admin Dose 4 MG; Start 02/01/19 at 18:00 Acetaminophen (Tylenol Tab) 650 mg Q6H PRN PO .PAIN 1-3 OR TEMP Last administered on 02/08/19 15:29; Admin Dose 650 MG; Start 02/01/19 at 18:00 Cholecalciferol (Vitamin D) 5,000 unit DAILY PO Last administered on 02/11/19 08:33; Admin Dose 5,000 UNIT; Start 02/02/19 at 09:00 Folic Acid (Folic Acid) 1 mg DAILY PO Last administered on 02/11/19 08:31; Admin Dose 1 MG; Start 02/02/19 at 09:00 Fentanyl (Sublimaze) 15 mcg Q3H PRN IV SEVERE PAIN LEVEL 7-10; Start 02/02/19 at 09:00 Vancomycin HCl (Vancomycin Oral Syringe) 125 mg Q6 PO Last administered on 02/11/19 12:10; Admin Dose 125 MG; Start 02/03/19 at 16:00 Enoxaparin Sodium (Lovenox) 40 mg DAILY SC Last administered on 02/11/19 08:36; Admin Dose 40 MG; Start 02/06/19 at 09:00 Hydrocortisone (Cortef) 20 mg BID PO Last administered on 02/09/19 22:28; Admin Dose 20 MG; Start 02/07/19 at 21:00 Lisinopril (Zestril) 20 mg DAILY PO Last administered on 02/11/19at 08:32; Admin Dose 20 MG; Start 02/08/19 at 09:00 ALONZO LEMON MD Feb 11, 2019 14:41
--- NOTE | 2019-02-11 14:43 | CONS ---
Assessment/Plan Assessment/Plan Hospital Course (Demo Recall) no acute events, looks comfortable, no fevers Antimicrobials: Oral Vanco Microbiology: Blood cultures remain negative stool positive came back positive Chest x-ray on admission revealed mild left basilar atelectasis the lungs are otherwise clear Physical examination: This is a fragile chronically ill-appearing elderly woman who is awake in no distress. Head atraumatic normocephalic neck is supple chest rise symmetrical breath sounds diminished bases heart S1-S2 abdomen soft bowel sounds present extremities without cyanosis Assessment: 1. C. difficile colitis 2. Status post respiratory failure 3. Metastatic colon cancer status post hemicolectomy 4. History of hypertension Plan: Remains stable, will reculture her stool given ongoing diarrhea, if + may need to be switched to Dificid, continue oral Vanco for now Consultation Date/Type/Reason Admit Date/Time Feb 01, 2019 at 17:44 Initial Consult Date 02/01/19 Type of Consult id Requesting Provider: VIKY GUZMAN Date/Time of Note DATE: 02/11/19 TIME: 14:41 Exam/Review of Systems Exam Vitals Vital Signs Date Temp Pulse Resp B/P (MAP) Pulse Ox O2 O2 Flow FiO2 Time Delivery Rate 02/11/19 97.9 97 18 97/56 (70) 97 Room Air 14:28 Intake and Output 02/10/19 02/10/19 02/11/19 1515:00 23:00 07:00 IntakeIntake Total 750 ml 200 ml BalanceBalance 750 ml 200 ml Results Result Diagram: 02/08/19 0607 02/10/19 0711 Medications Medication Current Medications IV Flush (NS 3 ml) 3 ml PER PROTOCOL IV ; Start 02/01/19 at 18:00 Ondansetron HCl (Zofran Inj) 4 mg Q6H PRN IV NAUSEA/VOMITING Last administered on 02/02/19at 01:25; Admin Dose 4 MG; Start 02/01/19 at 18:00 Acetaminophen (Tylenol Tab) 650 mg Q6H PRN PO .PAIN 1-3 OR TEMP Last administered on 02/08/19at 15:29; Admin Dose 650 MG; Start 02/01/19 at 18:00 Cholecalciferol (Vitamin D) 5,000 unit DAILY PO Last administered on 02/11/19at 08:33; Admin Dose 5,000 UNIT; Start 02/02/19 at 09:00 Folic Acid (Folic Acid) 1 mg DAILY PO Last administered on 02/11/19 08:31; Admin Dose 1 MG; Start 02/02/19 at 09:00 Fentanyl (Sublimaze) 15 mcg Q3H PRN IV SEVERE PAIN LEVEL 7-10; Start 02/02/19 at 09:00 Vancomycin HCl (Vancomycin Oral Syringe) 125 mg Q6 PO Last administered on 02/11/19at 12:10; Admin Dose 125 MG; Start 02/03/19 at 16:00 Enoxaparin Sodium (Lovenox) 40 mg DAILY SC Last administered on 02/11/19at 08:36; Admin Dose 40 MG; Start 02/06/19 at 09:00 Hydrocortisone (Cortef) 20 mg BID PO Last administered on 02/09/19at 22:28; Admin Dose 20 MG; Start 02/07/19 at 21:00 Lisinopril (Zestril) 20 mg DAILY PO Last administered on 02/11/19 08:32; Admin Dose 20 MG; Start 02/08/19 at 09:00 OBED MASTERS NP Feb 11, 2019 14:43
--- NOTE | 2019-02-11 17:49 | CONS ---
Assessment/Plan Assessment/Plan Assessment/Plan (Daily) Assessment/Plan Hospital Course (Demo Recall) 68 yo male with 1. Anemia. 2. Syncopal episode 3. Dehydration, improved. 4. Colon cancer, status post surgery last year. 5. Abnormal finding on the CAT scan with thickening of the anastomotic site and soft tissue mass outside the lumen. -Colonoscopy finding there was no recurrence of tumor patient had colitis. 6. Hypertension. 7. Sepsis. 8. Renal insufficiency. 9. C. difficile colitis 10. Hypokalemia and hypomagnesemia Plan Complete vancomycin course Continue with probiotic Replete electrolytes as needed Encourage PO feedings,or Megace Continue Flagyl Consultation Date/Type/Reason Admit Date/Time Feb 01, 2019 at 17:44 Initial Consult Date 02/01/19 Requesting Provider: VIKY GUZMAN Date/Time of Note DATE: 02/11/19 TIME: 17:48 24 HR Interval Summary Free Text/Dictation No abdominal pain no diarrhea appetite is much better Exam/Review of Systems Exam Vitals Vital Signs Date Temp Pulse Resp B/P (MAP) Pulse Ox O2 O2 Flow FiO2 Time Delivery Rate 02/11/19 97.9 97 18 97/56 (70) 97 Room Air 14:28 Intake and Output 02/10/19 02/10/19 02/11/19 1515:00 23:00 07:00 IntakeIntake Total 750 ml 200 ml BalanceBalance 750 ml 200 ml Constitutional: alert, oriented, well developed Psych: no complaints, nl mood/affect Head: normocephalic, atraumatic Eyes: nl conjunctiva, EOMI, nl lids, nl sclera, PERRL ENMT: nl external ears & nose, nl lips & teeth, nl nasal mucosa & septum Neck: supple, non-tender Respiratory: clear to auscultation, normal air movement Cardiovascular: regular rate and rhythm, nl pulses Gastrointestinal: soft, nl liver, spleen, non-tender Musculoskeletal: nl extremities to inspection, nl gait and stance Extremities: normal pulses Neurological: MANAGER OF INTERNAL II-XII intact, nl mental status, nl speech, nl strength Skin: nl turgor; No rash or lesions Lymph: nl lymph nodes Results Result Diagram: 02/08/19 0607 02/10/19 0711 Medications Medication Current Medications IV Flush (NS 3 ml) 3 ml PER PROTOCOL IV ; Start 02/01/19 at 18:00 Ondansetron HCl (Zofran Inj) 4 mg Q6H PRN IV NAUSEA/VOMITING Last administered on 02/02/19 01:25; Admin Dose 4 MG; Start 02/01/19 at 18:00 Acetaminophen (Tylenol Tab) 650 mg Q6H PRN PO .PAIN 1-3 OR TEMP Last administered on 02/08/19 15:29; Admin Dose 650 MG; Start 02/01/19 at 18:00 Cholecalciferol (Vitamin D) 5,000 unit DAILY PO Last administered on 02/11/19 08:33; Admin Dose 5,000 UNIT; Start 02/02/19 at 09:00 Folic Acid (Folic Acid) 1 mg DAILY PO Last administered on 02/11/19 08:31; Admin Dose 1 MG; Start 02/02/19 at 09:00 Fentanyl (Sublimaze) 15 mcg Q3H PRN IV SEVERE PAIN LEVEL 7-10; Start 02/02/19 at 09:00 Vancomycin HCl (Vancomycin Oral Syringe) 125 mg Q6 PO Last administered on 02/11/19 17:05; Admin Dose 125 MG; Start 02/03/19 at 16:00 Enoxaparin Sodium (Lovenox) 40 mg DAILY SC Last administered on 02/11/19 08:36; Admin Dose 40 MG; Start 02/06/19 at 09:00 Hydrocortisone (Cortef) 20 mg BID PO Last administered on 02/09/19 22:28; Admin Dose 20 MG; Start 02/07/19 at 21:00 Lisinopril (Zestril) 20 mg DAILY PO Last administered on 02/11/19 08:32; Admin Dose 20 MG; Start 02/08/19 at 09:00 JOEL SCHUSTER MD Feb 11, 2019 17:49
[2019-02-11 19:55] VITALS: BP 112/66; PULSE 99; RESP 17
[2019-02-12] MEDS: VANCOMYCIN HCL 250 MG/5ML POSYG PO SCH ×4 (00:17→17:31)
[2019-02-12 02:20] VITALS: BP 118/71; PULSE 97; RESP 18
[2019-02-12 07:15] VITALS: BP 105/71; PULSE 97; RESP 18
[2019-02-12] MEDS: LISINOPRIL 20 MG TAB PO SCH (08:31)
[2019-02-12] MEDS: FOLIC ACID 1 MG TAB PO SCH (08:31)
[2019-02-12] MEDS: ENOXAPARIN 40 MG/0.4 ML SYG SC SCH (08:32)
[2019-02-12] MEDS: ACETAMINOPHEN 325 MG TAB PO PRN (08:32)
[2019-02-12] MEDS: HYDROCORTISONE 20 MG TAB PO SCH (09:00)
[2019-02-12] MEDS: CHOLECALCIFEROL 1,000 UNIT TAB PO SCH (10:00)
--- NOTE | 2019-02-12 10:22 | PN ---
Date/Time of Note Date/Time of Note DATE: 02/12/19 TIME: 10:21 Assessment/Plan Lines/Catheters IV Catheter Type (from [facility]): port a cath Duran in Place (from [facility]): No (DC'd 02/06) Assessment/Plan Chief Complaint/Hosp Course 1. Abdominal pain, resolved 2. Lactic acidosis, resolved 3. Leukocytosis with bandemia: resolved 4. CT findings of thickened proctoscopy: possible colitis versus perforation versus infectious: repeat ct noted without leak; possible recurrence of cancer, colitis: pus noted from anastomosis to descending colon: +c diff -diet -no emergent surgical intervention indicated> DC okay from surgical standpoint -will need follow-up with oncology/primary surgeon/GI team 5. Syncope; bradycardia -medical management 6. Sepsis probably secondary to above. Resolved -As above 7. Kidney injury with renal insufficiency resolved -Judicious fluid management -Minimize nephrotoxic agents if possible 8. Stage IV colon cancer status post resection and chemotherapy -Oncology follow-up 9. C. difficile; status post treatment Thank you. Patient seen and examined in collaboration with Dr. Franky Tamayo. Subjective 24 Hr Interval Summary Now having formed stools. No fevers, chills, sob, congested cough, cp, palpitations, alcantara, dizziness, nausea, vomiting, diarrhea, dysuria. Exam/Review of Systems Vital Signs Vitals Vital Signs Date Temp Pulse Resp B/P (MAP) Pulse Ox O2 O2 Flow FiO2 Time Delivery Rate 02/12/19 97.4 97 18 105/71 97 Room Air 07:15 (82) Intake and Output 02/11/19 02/11/19 02/12/19 1515:00 23:00 07:00 IntakeIntake Total 600 ml 300 ml BalanceBalance 600 ml 300 ml Exam Free Text/Dictation Constitutional: oriented; No distress Psych: nl mood/affect Head: normocephalic, atraumatic Eyes: nl conjunctiva, EOMI, PERRL; No icteric ENMT: nl external ears & nose; No mucosa pink and moist Neck: non-tender; No jvd Respiratory: normal air movement; No congested cough, No labored breathing, No wheezing Cardiovascular: No regular rate and rhythm, No edema Gastrointestinal: rebound or guarding (Normal), nontender Musculoskeletal: No nl gait and stance, No joint tenderness Extremities: normal pulses; No calf tenderness Neurological: nl mental status Skin: No rash or lesions, No diaphoresis Results Result Diagram: 02/08/19 0607 02/10/19 0711 MOJGAN BURKS NP Feb 12, 2019 10:22
--- NOTE | 2019-02-12 11:15 | CONS ---
Assessment/Plan Assessment/Plan Assessment/Plan (Daily) Assessment/Plan Hospital Course (Demo Recall) 68 yo male with 1. Anemia. 2. Syncopal episode 3. Dehydration, improved. 4. Colon cancer, status post surgery last year. 5. Abnormal finding on the CAT scan with thickening of the anastomotic site and soft tissue mass outside the lumen. -Colonoscopy finding there was no recurrence of tumor patient had colitis. 6. Hypertension. 7. Sepsis. 8. Renal insufficiency. Stable 9. C. difficile colitis 10. Hypokalemia and hypomagnesemia corrected 11. Colonoscopy biopsy shows ischemic colitis with ulceration no pseudomembrane s Plan Complete vancomycin course Continue with probiotic Replete electrolytes as needed Encourage PO feedings,or Megace Ambulate patient Patient should go back to her oncologist upon discharge Consultation Date/Type/Reason Admit Date/Time Feb 01, 2019 at 17:44 Initial Consult Date 02/01/19 Requesting Provider: VIKY GUZMAN Date/Time of Note DATE: 02/12/19 TIME: 11:14 24 HR Interval Summary Constitutional: no complaints, improved Exam/Review of Systems Exam Vitals Vital Signs Date Temp Pulse Resp B/P (MAP) Pulse Ox O2 O2 Flow FiO2 Time Delivery Rate 02/12/19 97.4 97 18 105/71 97 Room Air 07:15 (82) Intake and Output 02/11/19 02/11/19 02/12/19 1515:00 23:00 07:00 IntakeIntake Total 600 ml 300 ml BalanceBalance 600 ml 300 ml Constitutional: alert, oriented, well developed Psych: no complaints, nl mood/affect Head: normocephalic, atraumatic Eyes: nl conjunctiva, EOMI, nl lids, nl sclera, PERRL ENMT: nl external ears & nose, nl lips & teeth, nl nasal mucosa & septum Neck: supple, non-tender Respiratory: clear to auscultation, normal air movement Cardiovascular: regular rate and rhythm, nl pulses Gastrointestinal: soft, nl liver, spleen, non-tender Musculoskeletal: nl extremities to inspection, nl gait and stance Extremities: normal pulses Neurological: FISH AND WILDLIFE SCIENTIFIC AID II-XII intact, nl mental status, nl speech, nl strength Skin: nl turgor; No rash or lesions Lymph: nl lymph nodes Results Result Diagram: 02/08/19 0607 02/10/19 0711 Medications Medication Current Medications IV Flush (NS 3 ml) 3 ml PER PROTOCOL IV ; Start 02/01/19 at 18:00 Ondansetron HCl (Zofran Inj) 4 mg Q6H PRN IV NAUSEA/VOMITING Last administered on 02/02/19 01:25; Admin Dose 4 MG; Start 02/01/19 at 18:00 Acetaminophen (Tylenol Tab) 650 mg Q6H PRN PO .PAIN 1-3 OR TEMP Last administered on 02/12/19 08:32; Admin Dose 650 MG; Start 02/01/19 at 18:00 Cholecalciferol (Vitamin D) 5,000 unit DAILY PO Last administered on 02/11/19 08:33; Admin Dose 5,000 UNIT; Start 02/02/19 at 09:00 Folic Acid (Folic Acid) 1 mg DAILY PO Last administered on 02/12/19 08:31; Admin Dose 1 MG; Start 02/02/19 at 09:00 Fentanyl (Sublimaze) 15 mcg Q3H PRN IV SEVERE PAIN LEVEL 7-10; Start 02/02/19 at 09:00 Vancomycin HCl (Vancomycin Oral Syringe) 125 mg Q6 PO Last administered on 02/12/19 05:10; Admin Dose 125 MG; Start 02/03/19 at 16:00 Enoxaparin Sodium (Lovenox) 40 mg DAILY SC Last administered on 02/12/19 08:32; Admin Dose 40 MG; Start 02/06/19 at 09:00 Hydrocortisone (Cortef) 20 mg BID PO Last administered on 02/09/19 22:28; Admin Dose 20 MG; Start 02/07/19 at 21:00 Lisinopril (Zestril) 20 mg DAILY PO Last administered on 02/12/19 08:31; Admin Dose 20 MG; Start 02/08/19 at 09:00 JOEL SCHUSTER MD Feb 12, 2019 11:15
[2019-02-12 14:02] VITALS: BP 79/51; PULSE 97; RESP 18
[2019-02-12] MEDS ORDERED: SOD CHLORIDE 0.9% 1,000 ML IV ONE (14:30)
--- NOTE | 2019-02-12 14:34 | CONS ---
Assessment/Plan Assessment/Plan Hospital Course (Demo Recall) looks comfortable, no fevers Antimicrobials: Oral Vanco Chest x-ray on admission revealed mild left basilar atelectasis the lungs are otherwise clear Physical examination: This is a fragile chronically ill-appearing elderly woman who is awake in no distress. Head atraumatic normocephalic neck is supple chest rise symmetrical breath sounds diminished bases heart S1-S2 abdomen soft bowel sounds present extremities without cyanosis Assessment: 1. C. difficile colitis 2. Status post respiratory failure 3. Metastatic colon cancer status post hemicolectomy 4. History of hypertension Plan: Remains stable, pending repeat stool for C. difficile Consultation Date/Type/Reason Admit Date/Time Feb 01, 2019 at 17:44 Initial Consult Date 02/01/19 Type of Consult id Requesting Provider: VIKY GUZMAN Date/Time of Note DATE: 02/12/19 TIME: 14:34 Exam/Review of Systems Exam Vitals Vital Signs Date Temp Pulse Resp B/P (MAP) Pulse Ox O2 O2 Flow FiO2 Time Delivery Rate 02/12/19 97.4 97 18 79/51 (60) 98 Room Air 14:02 Intake and Output 02/11/19 02/11/19 02/12/19 1515:00 23:00 07:00 IntakeIntake Total 600 ml 300 ml BalanceBalance 600 ml 300 ml Results Result Diagram: 02/08/19 0607 02/10/19 0711 Medications Medication Current Medications IV Flush (NS 3 ml) 3 ml PER PROTOCOL IV ; Start 02/01/19 at 18:00 Ondansetron HCl (Zofran Inj) 4 mg Q6H PRN IV NAUSEA/VOMITING Last administered on 02/02/19at 01:25; Admin Dose 4 MG; Start 02/01/19 at 18:00 Acetaminophen (Tylenol Tab) 650 mg Q6H PRN PO .PAIN 1-3 OR TEMP Last administered on 02/12/19at 08:32; Admin Dose 650 MG; Start 02/01/19 at 18:00 Cholecalciferol (Vitamin D) 5,000 unit DAILY PO Last administered on 02/11/19at 08:33; Admin Dose 5,000 UNIT; Start 02/02/19 at 09:00 Folic Acid (Folic Acid) 1 mg DAILY PO Last administered on 02/12/19at 08:31; Admin Dose 1 MG; Start 02/02/19 at 09:00 Fentanyl (Sublimaze) 15 mcg Q3H PRN IV SEVERE PAIN LEVEL 7-10; Start 02/02/19 at 09:00 Vancomycin HCl (Vancomycin Oral Syringe) 125 mg Q6 PO Last administered on 02/12/19 12:11; Admin Dose 125 MG; Start 02/03/19 at 16:00 Enoxaparin Sodium (Lovenox) 40 mg DAILY SC Last administered on 02/12/19 08:32; Admin Dose 40 MG; Start 02/06/19 at 09:00 Hydrocortisone (Cortef) 20 mg BID PO Last administered on 02/09/19 22:28; Admin Dose 20 MG; Start 02/07/19 at 21:00 Lisinopril (Zestril) 20 mg DAILY PO Last administered on 02/12/19 08:31; Admin Dose 20 MG; Start 02/08/19 at 09:00 Sodium Chloride 1,000 ml @ 1,000 mls/hr Q1H ONCE IV Last administered on 02/12/19 14:11; Admin Dose 1,000 MLS/HR; Start 02/12/19 at 14:30; Stop 02/12/19 at 15:29 OBED MASTERS NP Feb 12, 2019 14:34
[2019-02-12 15:02] VITALS: BP 119/64; PULSE 93; RESP 18
--- NOTE | 2019-02-12 16:02 | DS ---
Date/Time of Note Date/Time of Note DATE: 02/12/19 TIME: 16:02 Discharge Summary Admission/Discharge Info Admit Date/Time Feb 01, 2019 at 17:44 Discharge Date/Time Discharge Diagnosis RG Syncope Hypotension Hypokalemia Patient Condition: Stable Hospital Course 68 yo female with h/o colon cancer presented with syncope. Found to have RG and hypokalemia and hyponatermia She was treated with IV fluids and renal function resolved to normal. She had severe hypokalemia which eventually resolved She was treated with stress dose steroids (given home hydrocortisone use) for a few days, then returned to her home dose of hydrocortisone Her CT scan of the belly suggested mass at anastatomic site. She underwent colonoscopy which was negative for a mass She then developed C Diff and completed a course of flagyl and vancomycin. Diarrhea has resolved now. She was seen by PT/OT who recommended home discharge with home PT services. Home Meds Reported Medications Gabapentin* (Gabapentin*) 400 Mg Capsule, 400 MG PO BID, #90 CAP 02/01/19 Folic Acid* (Folic Acid*) 1 Mg Tablet, 1 MG PO DAILY, TAB 02/01/19 Cholecalciferol (Vitamin D3) 5,000 Unit Tablet, 5000 UNIT PO DAILY, TAB 02/01/19 Ondansetron Hcl* (Zofran*) 4 Mg Tablet, 4 MG PO Q8H PRN for NAUSEA AND OR VOMITING, TAB 02/01/19 Hydrocortisone* (Cortef*) 20 Mg Tablet, 20 MG PO BID, #60 TAB 02/01/19 Lisinopril* (Lisinopril*) 5 Mg Tablet, 5 MG PO DAILY, #30 TAB 02/01/19 Follow-up Plan Make an appointment to see your doctor in the next 1-2 weeks Return to the emergency room if you have any concerning symptoms Primary Care Provider Not On Staff Doctor ALONZO LEMON MD Feb 12, 2019 16:02
[2019-02-12] MEDS ORDERED: HEPARIN (100 UNITS/ML) 5 ML SYG CATHETER ONE (18:00)
== END 2019-02-12 19:39 | disposition home health service (06) | DRG 871 ==
LOC: E/R 15:04 → 6WM 17:44 → SUATTDRO 17:48 → ICU 02-02 05:03 → 6WM 02-03 10:48 → 5EC 02-06 22:29
PROVIDERS: ADMIT Internal Medicine; ATTEND Internal Medicine
PROC: 0DBP8ZX Excision of Rectum, Via Natural or Artificial Opening Endoscopic, Diagnostic (ICD-10-PCS; principal; 2019-02-04 12:00)
DX: A41.9 Sepsis, unspecified organism (principal); E43 Unspecified severe protein-calorie malnutrition; N17.9 Acute kidney failure, unspecified; E87.1 Hypo-osmolality and hyponatremia; C18.9 Malignant neoplasm of colon, unspecified; A04.72 Enterocolitis due to Clostridium difficile, not specified as recurrent; Z68.1 Body mass index [BMI] 19.9 or less, adult; N13.39 Other hydronephrosis; E87.2 Acidosis; E83.42 Hypomagnesemia; E86.0 Dehydration; E87.5 Hyperkalemia; R62.7 Adult failure to thrive; I10 Essential (primary) hypertension; E87.6 Hypokalemia; R65.20 Severe sepsis without septic shock; Z90.49 Acquired absence of other specified parts of digestive tract
CPT/HCPCS: 36415; 70450; 70551; 71045; 72170; 74176; 74177; 76775; 80048; 80053; 80061; 81001; 81003; 82043; 82378; 83036; 83605; 83690; 83735; 83935; 84100; 84155; 84300; 84443; 84484; 85025; 85610; 85730; 87075; 87081; 87086; 88305; 93005; 93306; 93880; 97110; 97116; 97162; 97530; J1642; J1650; J1720; J2185; J2405; J2543; J3370; J3475; J3480; J7030; J7040; J7050; J7120; P9045; P9047; Q9967